=== PATIENT | female | born 1970 | race Two or more races ===

== ENCOUNTER 2025-02-25 14:25 | Inpatient (IN) | payer MEDICAID, SELFPAY ==
[2025-02-25 14:33] VITALS: BP 116/85; PULSE 87; RESP 16; TEMP 36.7; O2SAT 94; BMI 64.2
--- NOTE | 2025-02-25 14:43 | XR_ITS ---
Examination: CT abdomen and pelvis without contrast. Coronal 3-D reconstructions. Sagittal 2-D reconstructions. Date and time of exam: February 25, 2025, 1921 hours INDICATIONS: Generalized abdominal pain and nausea beginning 2 days ago CTDI: vol (mGy): 24.1 DLP: (mGycm): 1583 Technique: Axial images of the abdomen have been obtained, 3 mm slice thickness Intravenous contrast material has not been administered. Low dose protocols were performed. One or more of the following dose reduction techniques were used; automated exposure control, adjustment of the mA and/or KV according to patient size, use of iterative reconstruction technique. Findings: No focal liver or splenic lesions, liver irregular in contour Absent gallbladder Mild nodular thickening adrenal glands Diffuse colonic diverticulosis,, suspicious for acute diverticulitis in the sigmoid colon multiple fluid distended small bowel loops in the left abdomen The appendix is not enlarged Mild free fluid in the abdomen and pelvis Small bowel loops also show wall thickening and inflammatory change Anteverted uterus Uterine fundal mass 19 mm Moderate osteopenia IMPRESSION: Primary appendicitis disease versus cirrhosis Abnormal small bowel loops with wall thickening and inflammatory change Colonic diverticulosis, suspicious for acute diverticulitis sigmoid colon Normal-appearing appendix Recommend repeating the study with intravenous contrast to best assess the small bowel, rule out ischemic small bowel and Riolan acute diverticulitis
--- NOTE | 2025-02-25 14:43 | PD.EDRME ---
Rapid Medical Screening Exam E Arrival date/time: 02/25/25 14:25 54-year-old female with a history of morbidly obesity, hyperlipidemia, hypertension, type 2 diabetes presents to the emergency room with a chief complaint of 10 out of 10 epigastric abdominal pain. Patient has a history of a cholecystectomy. I have greeted and performed a focused initial assessment of this patient. A comprehensive ED assessment and evaluation of the patient, analysis of all test results, and completion of the medical decision making process will be conducted by additional ED providers. Chief Complaint: Abdominal Pain Time Seen by Provider: 02/25/25 14:30 Vital signs: Vital Signs Temperature 98.0 F 02/25/25 14:33 Pulse Rate 87 02/25/25 14:33 Respiratory Rate 16 02/25/25 14:33 Blood Pressure 116/85 H 02/25/25 14:33 Pulse Oximetry (%) 94 L 02/25/25 14:33 Oxygen Delivery Method Room Air 02/25/25 14:33 Vital signs reviewed by provider: No Exam: Tenderness to the epigastric area of the patient's abdomen Clear bilateral lung sounds Clinical Impression: Diverticulitis/appendicitis/gastroenteritis/UTI
[2025-02-25 16:03] LABS: Basophils # (Auto) 0.1 Thou/mm3 (0.0-0.2); Basophils % (Auto) 0 % (0-2.5); Eosinophils # (Auto) 0.2 Thou/mm3 (0.0-0.5); Eosinophils % (Auto) 1 % (0-10); Hematocrit 44.4 % (36.0-46.0); Hemoglobin 14.6 g/dL (12.0-16.0); Immature Granulocytes Auto 0.05 Thou/mm3 (0.00-0.00); Lymphocytes # (Auto) 1.4 Thou/mm3 (1.0-4.8); Lymphocytes % (Auto) 9 % (10-50); Mean Corpuscular HGB Conc 32.9 g/dl (31.0-37.0); Mean Corpuscular Hemoglobin 32.8 pg (25.0-35.0); Mean Corpuscular Volume 100 fL (80-100); Monocytes # (Auto) 0.4 Thou/mm3 (0.0-0.8); Monocytes % (Auto) 3 % (0-12); Neutrophils # (Auto) 13.1 Thou/mm3 (1.8-7.7); Neutrophils % (Auto) 86 % (37-80); Nucleated Red Blood Cell # 0.00 Thou/mm3 (0.00-0.00); Nucleated Red Blood Cell % 0 /100 WBC (0); Platelet Count 225 Thou/mm3 (140-440); RDW Standard Deviation 51.8 fL (36.4-46.3); Red Blood Count 4.45 Miln/mm3 (4.00-5.20); White Blood Count 15.2 Thou/mm3 (3.6-11.0)
[2025-02-25 16:30] LABS: Alanine Aminotransferase 9 U/L (10-49); Albumin, Serum 4.5 gm/dL (3.5-5.0); Albumin/Globulin Ratio 1.7 (1.2-2.2); Alkaline Phosphatase 65 U/L (46-116); Anion Gap 12 (7-16); Aspartate Amino Transferase 21 U/L (0-34); BUN/Creatinine Ratio 10 Ratio (12-20); Bilirubin,Total 1.0 mg/dL (0.3-1.2); Blood Urea Nitrogen 12 mg/dL (9-23); Calcium 9.4 mg/dL (8.3-10.6); Calcium (Corrected) 9.4 mg/dL (8.5-10.1); Carbon Dioxide 32.4 mMol/L (20.0-31.0); Chloride 99 mMol/L (98-107); Creatinine (Component) 1.2 mg/dL (0.6-1.3); Estimated Creatinine Clearance 77.3 mL/min (>60); Globulin 2.6 gm/dL (2.3-3.5); Glucose 155 mg/dL (74-106); Lipase 35 U/L (12-53); Osmolality,Calculated 287 (275-295); Potassium 3.5 mMol/L (3.4-5.1); Sodium 143 mMol/L (136-145); Total Protein 7.1 gm/dL (5.7-8.2); eGFR 54 See Note
[2025-02-25 20:11] VITALS: BP 147/104; PULSE 82; RESP 16; TEMP 37; O2SAT 93
[2025-02-25 20:26] LABS: Collection Type, Urine Clean Catch
[2025-02-25 20:43] LABS: HCG Qualitative,Urine Negative
[2025-02-25 21:28] LABS: Bilirubin,Urine 1+ (Negative); Blood,Urine 2+ (Negative); Color,Urine Drk-Orange (Lt Yel-Yel); Glucose, Urine Trace (Negative); Hyaline Casts,Urine 5 /hpf (0-1); Ketones,Urine Trace (Negative); Leukocyte Esterase,Urine Positive (Negative); Nitrite,Urine Negative (Negative); PH,Urine 6.0 (5.0-7.0); Protein,Urine 3+ (Neg - Trace); RBC,Urine 27 /hpf (0-3); Specific Gravity,Urine 1.034 (1.001-1.035); Squamous Epithelial Cell,Urine 55 /hpf (0-5); Urobilinogen,Urine 12 mg/dL (0.0-1.0); WBC,Urine 158 /hpf (0-5)
[2025-02-25 21:30] LABS: Clarity,Urine Turbid (Clear/Hazy)
--- NOTE | 2025-02-25 22:32 | PD.EDABDPN ---
ED Abdominal Pain RME/HPI General Chief Complaint: Abdominal Pain Stated complaint: SEVERE ABD PAIN; L) ARM PAIN TO CHEST X 1 DAY Time seen by provider: 02/25/25 14:30 Arrival date/time: 02/25/25 14:25 RME / HPI RME / HPI narrative: 02/25/25 14:25 54-year-old female with a history of morbidly obesity, hyperlipidemia, hypertension, type 2 diabetes presents to the emergency room with a chief complaint of 10 out of 10 epigastric abdominal pain. Patient has a history of a cholecystectomy. I have greeted and performed a focused initial assessment of this patient. A comprehensive ED assessment and evaluation of the patient, analysis of all test results, and completion of the medical decision making process will be conducted by additional ED providers. DR. VELASCO MAIN ED EVALUATION: Patient with Hx of non-insulin dependent diabetes predominantly obese presenting with LLQ abdominal pain approximately 3 days duration. Reports 1 bout of emesis. Additionally, notes diarrhea earlier today. Theres been no definite fevers or chills. PMH: Myocardial Infarction, Hypertension, Obesity, Diabetes Mellitus Type 2, Hypothyroidism, Anemia PSH: Cholecystectomy, Tubal Ligation Allergies: None Social: Non-smoker, Non-drinker, No illicit drug abuse Exam: Tenderness to the epigastric area of the patient's abdomen Clear bilateral lung sounds Impression: Diverticulitis/appendicitis/gastroenteritis/UTI Related Data Home Medications ?Medication ?Instructions ?Recorded ?Confirmed folic acid 1 mg tablet 1 mg PO QDAY 04/06/21 04/06/21 losartan 25 mg tablet 25 mg PO QDAY 04/06/21 04/06/21 metformin 500 mg tablet 500 mg PO BID 04/06/21 04/06/21 Previous Rx's ?Medication ?Instructions ?Recorded amlodipine 10 mg tablet 10 mg PO QDAY #30 tabs 06/25/19 aspirin 81 mg tablet,delayed 81 mg PO QDAY #30 tabs 06/25/19 release (Aspir-Low) atorvastatin 40 mg tablet 40 mg PO QPM #30 tabs 06/25/19 carvedilol 3.125 mg tablet 3.125 mg PO BID #60 tabs 02/25/20 ferrous gluconate 324 mg (38 mg 324 mg PO QDAY #30 tabs 06/25/19 iron) tablet levothyroxine 175 mcg tablet 175 mcg PO ACBR #30 tabs 06/25/19 nitroglycerin 0.4 mg sublingual 0.4 mg buccal [id number] PRN chest 06/25/19 tablet pain #100 tabs acetaminophen 325 mg tablet (Mapap 650 mg (2 x 325 mg) PO Q6H PRN 04/28/20 (acetaminophen)) Fever >101.5 #20 tabs Allergies Allergy/AdvReac Type Severity Reaction Status Date / Time No Known Allergies Allergy Verified 02/25/25 14:29 Review of Systems Review of Systems Systems Reviewed: All systems reviewed, normal except as documented Past Medical History Past Medical History CARDIAC: Positive Myocardial Infarction and Hypertension GASTROINTESTINAL: Positive Obesity ENDOCRINE: Positive Diabetes Mellitus Type 2 and Hypothyroidism HEMATOLOGIC: Positive Anemia Surgical History SURGICAL: Positive Abdominal Surgery ED Exam Narrative Physical exam: GEN. APPEARANCE: The patient is alert awake oriented X-3 under no distress, lying down comfortably, does not look ill/toxic. Patient has good eye contact. Patient is cooperative. VITALS: All vitals were reviewed and the pulse ox is 93% on 3L/min via oxygen mask, which is low according to my interpretation HEENT: Normocephalic, atraumatic and nontender. Pupils are equal and reactive. Oral mucosa is moist. NECK: Supple, nontender, no meningismus, no JVD. There is no thyromegaly and no lymphadenopathy. CHEST: Nontender on palpation no deformity and no crepitus. CARDIOVASCULAR: Heart regular rhythm, no murmur or gallop rub or extra beats. LUNGS: Clear to auscultation bilaterally with symmetrical chest rise. No laboring tachypnea or wheezing. No intercostal subcostal retraction. No rales and no rhonchi. ABDOMEN: Soft, morbidly obese, TTP LLQ extending to left flank and LUQ, no guarding or rebound tenderness. There are no abnormal masses palpated. No pulsatile masses or bruits. Active and normal bowel sounds. EXTREMITIES: Normal inspection and palpation. No edema. No cyanosis. Patient is able to move all 4 extremities well SKIN: Warm and dry, no rashes noted. MUSCULOSKELETAL: No lumbar or midline bony tenderness. There is no CVA tenderness. No paraspinal muscle spasm or tenderness. NEURO: Cranial nerves II through XII grossly intact. There are no focal neurologic deficits noted. GCS is 15 PSYCHIATRIC: Patient is in normal mood and affect, cooperative. LYMPHATICS: No major lymphadenopathy noted. Course Quality Measures none Orders Category Date Time Status EKG (ED ONLY) *Do not use* NOW Care 02/25/25 22:52 Active IV [Insert IV] NOW Care 02/25/25 22:[address] abdomen pelvis wo con Stat Exams 02/25/25 14:43 Completed EKG (ED Only) Stat Exams 02/25/25 22:52 Ordered CBC Stat Lab 02/25/25 15:30 Completed CMP [Comprehensive Metabolic Panel] Stat Lab 02/25/25 15:30 Completed HCG Qualitative,Urine Stat Lab 02/25/25 19:57 Completed Lactic Acid [Lactate (Lactic Acid)] Stat Lab 02/25/25 22:31 Completed Lipase Stat Lab 02/25/25 15:30 Completed UA [Urinalysis] Stat Lab 02/25/25 19:57 Completed Urine Culture Stat Lab 02/25/25 19:57 Received Morphine* Inj Med 02/25/25 22:20 Discontinued 4 mg IVP X1 ONE Ondansetron Inj [Zofran Inj] Med 02/25/25 22:19 Discontinued 4 mg IVP X1 ONE Sodium Chloride 0.9% 500 ml [Ns] 500 ml Med 02/25/25 22:19 Discontinued IV 500 mls/hr cefTRIAXone/D5w 1gm IV premix [Rocephin/D5w 1gm IV Med 02/25/25 22:18 Discontinued premix] 1 gm in 50 ml IV X1 metroNIDAZOLE/NS 500 MG IVPB [Flagyl 500 mg IV] Med 02/25/25 22:19 Discontinued 500 mg in 100 ml IV X1 Vital Signs Vital signs: Vital Signs Temperature 98.0 F 02/25/25 14:33 Pulse Rate 87 02/25/25 14:33 Respiratory Rate 16 02/25/25 14:33 Blood Pressure 116/85 H 02/25/25 14:33 Pulse Oximetry (%) 94 L 02/25/25 14:33 Oxygen Delivery Method Room Air 02/25/25 14:33 Abdominal Pain MDM MDM Narrative MDM Narrative:: Scribe Attestation: ITaisha am scribing for and in the presence of Dr. Velasco. Provider Notation: Although this document has been carefully reviewed, there may still be some phonetic and other typographical errors. These errors are purely grammatical due to imperfections in the software program and should not be construed in any way to compromise the substance of the patient's medical care during this visit. Patient with Hx of non-insulin dependent diabetes predominantly obese presenting with LLQ abdominal pain approximately 3 days duration. Reports 1 bout of emesis. Please see PE findings. Laboratory markers, including CBC and serum chemistries, demonstrate elevated WBC of 15.2, Hemoglobin 14.6, left shift without bandemia. Serum chemistries demonstrate mild bs 155 otherwise essentially unremarkable. UA with evidence of pyuria and positive leukocyte esterase, although negative nitrite appears contaminated. test was negative. Patient was hydrated with saline low-dose narcotic analgesics/anti-emetics with mild to moderate relief and referred for CT which demonstrates acute diverticulitis, additionally small bowel loops with wall thickening and inflammatory changes. Recommendations include IV contrast to R/O ischemic small bowel. Likelihood is low given Lactic Acid of 1.3. Received IV dual-ABX, hospitalist consulted for admission with general surgery consultation. Patient data External records reviewed:: [facility] previous records (Reviewed prior ED records from 04/08/21. Patient was seen for Abscess of face.) Clinical information provided by:: patient Social determinants that could affect healthcare access:: none Patient has the following chronic illnesses:: Myocardial Infarction, Hypertension, Obesity, Diabetes Mellitus Type 2, Hypothyroidism, Anemia How is presenting disease/condition affected by chronic disease/condition?: exacerbated by Evaluation data The following diagnostics were reviewed and interpreted by me:: lab results and radiology exam(s) Lab and/or radiology exams considered but not ordered:: None Interpretation Summary: RADIOLOGY Abdomen/Pelvis CT: Findings: No focal liver or splenic lesions, liver irregular in contour Absent gallbladder Mild nodular thickening adrenal glands Diffuse colonic diverticulosis,, suspicious for acute diverticulitis in the sigmoid colon multiple fluid distended small bowel loops in the left abdomen The appendix is not enlarged Mild free fluid in the abdomen and pelvis Small bowel loops also show wall thickening and inflammatory change Anteverted uterus Uterine fundal mass 19 mm Moderate osteopenia IMPRESSION: Primary appendicitis disease versus cirrhosis Abnormal small bowel loops with wall thickening and inflammatory change Colonic diverticulosis, suspicious for acute diverticulitis sigmoid colon Normal-appearing appendix Recommend repeating the study with intravenous contrast to best assess the small bowel, rule out ischemic small bowel and Riolan acute diverticulitis Medications / Prescriptions Medications or Prescriptions considered but not ordered:: None Medication administrations:: Medication Administration History Discontinued Medications Ceftriaxone Sodium/Dextrose (Rocephin/D5w 1gm Iv Premix) 1 gm in 50 mls @ 100 mls/hr IV X1 ONE Stop: 02/25/25 22:47 Last Admin: 02/25/25 22:45 Dose: 100 mls/hr Documented By: MARILEE Metronidazole (Flagyl 500 Mg Iv) 500 mg in 100 mls @ 100 mls/hr IV X1 ONE Stop: 02/25/25 23:18 Last Admin: 02/25/25 23:08 Dose: 100 mls/hr Documented By: MARILEE Sodium Chloride (Ns) 500 mls @ 500 mls/hr IV .Q1H ONE Stop: 02/25/25 23:18 Last Admin: 02/25/25 22:47 Dose: 500 mls/hr Documented By: MARILEE Morphine Sulfate (Morphine Sulf Inj 4 Mg/Ml Vial) 4 mg IVP X1 ONE Stop: 02/25/25 22:21 Last Admin: 02/25/25 22:45 Dose: 4 mg Documented By: MARILEE Ondansetron HCl (Ondansetron Inj 2 Mg/Ml Inj 2 Ml) 4 mg IVP X1 ONE; Protocol Stop: 02/25/25 22:20 Last Admin: 02/25/25 22:46 Dose: 4 mg Documented By: MARILEE See above if any Consultations Consultation(s) initiated? (list below): Yes Consultation #1 (Physician, Specialty, Details): Discussed with resident physician Dr. Mesa for admission. Reviewed the patient?s HPI, PMHx, lab and/or radiology results. Discussed treatment plan. Will consult an admission to the hospitalist. Time: 23:23 Diagnosis Differential diagnosis abdominal pain: abdominal pain, calculus of kidney, constipation, diverticulitis, gastroenteritis and small bowel obstruction Most likely diagnosis given after review of the tests above:: Diverticulitis Admission Indicated Admission indicated?: indicated Explain why admission is indicated or not indicated:: Diverticulitis Admission Request Was there a request for admission?: Yes Admission Attestation Admission request attestation: Discussed case with [] from Hospitalist service regarding admission. Discussed patients ED course, exam findings, labs, and radiology results. The Hospitalist [agrees,declines] to accept the patient for admission. Disposition Plan Disposition Plan: Admit Discharge Plan Plan Patient Disposition: Admit Acute Care w/in Hospital Prescriptions/Referrals Prescriptions/Med Rec: No Action amlodipine 10 mg tablet 10 mg PO QDAY Qty: 30 0RF aspirin [Aspir-Low] 81 mg Tablet,Delayed Release (Dr/Ec) 81 mg PO QDAY Qty: 30 0RF atorvastatin 40 mg tablet 40 mg PO QPM Qty: 30 0RF levothyroxine 175 mcg Tablet 175 mcg PO ACBR Qty: 30 0RF carvedilol 3.125 mg Tablet 3.125 mg PO BID Qty: 60 0RF ferrous gluconate 324 mg (38 mg iron) Tablet 324 mg PO QDAY Qty: 30 0RF nitroglycerin 0.4 mg tablet, sublingual 0.4 mg BUCCAL [id number] PRN (Reason: chest pain) Qty: 100 0RF Patient Comments: last dose couple of months ago Rx Instructions: Please seek immediate medical attention if no alleviation of chest pain. acetaminophen [Mapap (acetaminophen)] 325 mg Tablet 650 mg PO Q6H PRN (Reason: Fever >101.5) Qty: 20 0RF metformin 500 mg Tablet 500 mg PO BID losartan 25 mg Tablet 25 mg PO QDAY folic acid 1 mg Tablet 1 mg PO QDAY Referrals: No Primary/Family,Physician [Primary Care Provider] - In 1 week Problem List Clinical Impression: Diverticulitis Patient/Caregiver Discharge Instructions Print Language: Taiwanese Stand Alone Forms: [facility] Award Info., Patient Portal Info Letter
[2025-02-25 22:41] LABS: Lactate (Lactic Acid) 1.3 mMol/L (0.4-2.0)
[2025-02-25 22:42] VITALS: BP 164/101; PULSE 89; RESP 20; TEMP 36.8; O2SAT 95
[2025-02-25] MEDS: MORPHINE SULF INJ 4 MG/ML VIAL IVP (22:45)
[2025-02-25] MEDS: cefTRIAXone/D5w 1gm IV premix 1 GM/50 ML BAG IV (22:45)
[2025-02-25] MEDS: ONDANSETRON INJ 2 MG/ML INJ 2 ML 4 MG IVP (22:46)
[2025-02-25] MEDS: SODIUM CHLORIDE 0.9% 500 ML 500 ML IV (22:47)
[2025-02-25] MEDS: metroNIDAZOLE/NS 500 MG IVPB 500 MG/100 ML BAG 100 MG IV (23:08)
[2025-02-26] VITALS (19 sets, daily range): BP systolic 119–188; BP diastolic 86–105; PULSE 58–88; RESP 10–25; TEMP 35.8–36.6; O2SAT 93–100
--- NOTE | 2025-02-26 00:24 | XR_ITS ---
EXAMINATION: AP chest single view TECHNIQUE: AP portable upright chest single view Date and time: February 26, 2025, 0035 hours INDICATIONS: Shortness of breath today. FINDINGS: Bilateral perihilar bibasilar pneumonia Moderate elevation left hemidiaphragm No significant cardiac enlargement Mild to moderate vascular congestion IMPRESSION: Significant bilateral pneumonia
--- NOTE | 2025-02-26 00:35 | XR_ITS ---
Examination: CTA abdomen, with intravenous contrast. CTA pelvis, with intravenous contrast. 2-D sagittal and coronal reconstructions. 3-D reconstructions. Date and time of exam: February 26, 2025, 0208 hours INDICATIONS: Severe abdominal pain today, clinical diagnosis ischemic bowel CTDI vol (mgy) 15.5 DLP (MGycm) 933 Technique: Multiple CTA images, 2.0 mm slice thickness, obtained abdomen, pelvis, with the high-resolution 64 slice scanner. 100 cc Isovue-370 is administered intravenously. Sagittal and coronal 2-D reconstructions are obtained. 3-D reconstructions, angiographic images are obtained. 3-D postprocessing, including vascular maximum intensity projections. Low dose protocols were performed. One or more of the following dose reduction techniques were used; automated exposure control, adjustment of the mA and/or KV according to patient size, use of iterative reconstruction technique. Findings: Bibasilar pneumonia Moderate enlargement cardiac contour. Pericardial effusion measuring 30 mm at the level of the left ventricle Liver is irregular in contour Spleen is not enlarged Absent gallbladder with no extrahepatic biliary tract dilatation No pancreatic mass Nodular thickening right adrenal gland No renal or ureteral calculi, no hydronephrosis No pericecal inflammatory change There is inflammatory change involving the sigmoid colon which may relate to diverticulitis Small bowel is not dilated on this study, no findings diagnostic for ischemic bowel Anteverted uterus with uterine fundal area fibroid degeneration 25 mm Contracted urinary bladder Severe osteopenia IMPRESSION: Study quality is limited secondary to patient's size Pericardial effusion measuring 30 mm at the level of the left ventricle Bibasilar pneumonia Primary bowel cellular disease versus cirrhosis No extrahepatic biliary tract dilatation Nodular thickening right adrenal gland, consider MRI abdomen pre and postcontrast follow-up No CT findings of appendicitis No findings diagnostic for bowel ischemia Colitis involving the sigmoid colon which may be secondary to diverticulitis, no pelvic abscess
[2025-02-26] MEDS: hydrALAZINE INJ 20 MG/ML VIAL 10 MG IVP (00:48)
[2025-02-26 01:24] LABS: Procalcitonin 1.10 ng/ml (0.0-0.49)
[2025-02-26 01:25] LABS: Lactate (Lactic Acid) 0.7 mMol/L (0.4-2.0)
[2025-02-26] MEDS: MORPHINE SULF INJ 4 MG/ML VIAL 2 MG IVP (01:53)
[2025-02-26] MEDS: CIPROFLOXACIN/D5w 400 MG IVPB 400 MG/200 ML BAG 200 MG IV ×2 (01:54→06:44)
[2025-02-26] MEDS: ONDANSETRON INJ 2 MG/ML INJ 2 ML 4 MG IVP (01:54)
[2025-02-26 03:00] LABS: Base Excess 0 (-3-3); HCO3 34 mEq/L (20-26); Inspired Oxygen, FIO2 21 %; O2 Saturation 95 % (91-98); PCO2 116 mmHg (32.0-48.0); PO2 96 mmHg (83-108)
[2025-02-26 03:02] LABS: Allen Test Performed/OK; Puncture Site Left Radial; pH, Arterial 7.07 (7.35-7.45)
--- NOTE | 2025-02-26 03:12 | PRELIM_ITS ---
CT angiogram of abdomen and pelvis with intravenous contrast (axial sections with sagittal and coronal reformats) February 26, 2025 0208 hours Clinical History: RLQ pain c/f ischemic bowel Comparison: None available at the time of this report. Findings: The abdominal aorta demonstrates mild atheromatous calcification without evidence of dissection or aneurysm. The celiac, superior mesenteric, inferior mesenteric and bilateral renal arteries are patent to the extent visualized. The common iliac, external iliac and internal iliac arteries are patent bilaterally. The spleen, pancreas, and kidneys are unremarkable. Right adrenal nodule measuring 2.2 cm. Unremarkable of the left adrenal. S/p cholecystectomy. No biliary duct dilation. Mild irregular liver margins. No evidence of bowel obstruction. No evidence of appendicitis. The urinary bladder is unremarkable. There is no free fluid, free air or abscess. Degenerative changes of the imaged portions of the spine. Chronic multilevel disc disease. No acute fractures. Hypodense fat-containing area within the uterus. Probable uterine fibroid. Bilateral lower lobes consolidations. Fat stranding peripheral to date sigmoid colon. Diverticulosis of the colon. Thickening of the cecum and ascending colon. Partially imaged moderate complex pericardial effusion. Impression: 1. No evidence of abdominal aortic aneurysm or mesenteric vascular occlusion. 2. Bilateral lower lobes consolidation suspicious for pneumonia. 3. Probable cirrhosis. 4. Hypodense fat-containing area within the uterus. Consider further evaluation with ultrasound. 5. Probable uterine fibroid. Consider further evaluation with ultrasound. 6. Inflammatory changes of the colon of uncertain etiology. Please, correlate clinically. 7. Partially imaged moderate complex pericardial effusion. This is suspicious for pericarditis. 8. Right adrenal nodule, further evaluation for characterization is recommended. Report Electronically Signed By: Lexx Blank 02/26/2025 3:12:34 AM [EST]
[2025-02-26] MEDS: SODIUM CHLORIDE 0.9% 1000 ML 1,000 ML 999 ML IV (03:31)
[2025-02-26] MEDS: SODIUM BICARB INJ 8.4% 1 mEq/ML 50 ML VIAL 100 MEQ IV (03:32)
[2025-02-26 04:45] LABS: Base Excess 4 (-3-3); HCO3 36 mEq/L (20-26); Inspired Oxygen, FIO2 55 %; O2 Saturation 99 % (91-98); PCO2 98 mmHg (32.0-48.0); PO2 140 mmHg (83-108)
[2025-02-26 04:52] LABS: Allen Test Performed/OK; Puncture Site Left Radial; pH, Arterial 7.17 (7.35-7.45)
--- NOTE | 2025-02-26 05:27 | PD.RESHP ---
Documentation for date of: 02/26/25 [facility] History of Present Illness History of present illness: Ms. Mcdowell is a 54-year-old female with past medical history of morbid obesity, hyperlipidemia, hypertension, T2DM, cholecystectomy, FL, hypothyroidism, MRSA + periorbital cellulitis, anemia who presented to the ED on 02/25 with epigastric and left upper and lower quadrant abdominal pain x 3 days. Patient reports 1 episode of diarrhea but no nausea or vomiting. Associated with decreased appetite. Last p.o. intake yesterday, was tolerated. Denies melena, hematochezia, hematemesis. She also has shortness of breath and was found to be desaturating to the 80s on room air. Denies chest pain/pressure, headache, acute changes in vision. Patient is a poor historian and is minimally interactive during the exam, though she is able to answer all questions and follow commands when asked directly, AO x 3. Patient's sister is at bedside, provides supplemental history. Patient's sister notes that the patient is less interactive and falls asleep during conversation which is not her baseline. Patient is noncompliant with medications and does not often see a medical provider. When asked why she does not take her medications she states that she does not know. She lives at home in a trailer with her and daughter who help take care of her, but the patient has significant difficulty with mobility. She does not check her blood pressure at home. ED course: Afebrile, 116/85 --> 164/101 --> 188/105 (HR 88). SpO2 94% RA --> 98% on 15L OxyMask. RR 16 --> 22. Labs significant for WBC 15.2, CO2 32, BUN 12, CR 1.2 (at baseline), eGFR 54. Lactic acid 1.3. Lipase unremarkable. UA showed 3+ protein, 2+ blood, + LE, 1+ bilirubin, 27 RBC, 158 WBC, 55 squamous epithelial cells, 5 hyaline casts. Pending urine culture. CT abdomen pelvis without contrast showed abnormal small bowel loops with wall thickening and inflammatory changes, colonic diverticulosis, C/F acute diverticulitis sigmoid colon, hepatocellular disease, irregular liver contour, uterine fundal mass 19 mm, mild nodular thickening of the adrenal glands. Given ceftriaxone 1 g IV, morphine 4 mg IV, Zofran 4 mg IV, 500 mL NS, metronidazole 500 mg IV. PMHX: Morbid obesity, hyperlipidemia, hypertension, T2DM, cholecystectomy, FL, hypothyroidism, MRSA positive periorbital cellulitis, anemia Allergies: NKDA Meds: Patient reports that she has not been taking any medications for at least the past 2 weeks. The following is a list of medications that were listed in home meds: Folic acid 1 mg daily Losartan 25 mg daily Metformin 500 mg twice daily Amlodipine 10 mg daily Aspirin 81 mg daily Atorvastatin 40 mg daily Levothyroxine 175 mcg daily Carvedilol 3.125 mg twice daily Nitroglycerin 0.4 mg buccal as needed Ferrous gluconate 324 mg p.o. daily SgHx: Cholecystectomy, tubal ligation SHx: Denies smoking, alcohol, recreational drug use. Lives in a trailer with her and daughter. Sedentary lifestyle. Has difficulty with mobility. FHx: Mother?CHF?, Sister?hypertension, diabetes Review of Systems Review of Systems Narrative Review of Systems: 14 point ROS negative other than HPI Exam Vital Signs Temp Pulse Resp BP Pulse Ox O2 Del Method O2 Flow Rate 97.5 F 69 24 H 134/93 H 95 BiPAP 50 02/26/25 03:09 02/26/25 04:43 02/26/25 04:43 02/26/25 04:43 02/26/25 04:43 02/26/25 04:43 02/26/25 03:47 Narrative Exam General: No acute distress, morbidly obese, minimally interactive with exam Eye: PERRL, EOMI, right eyelid closed (chronic) HENT: Normocephalic, atraumatic, normal hearing, moist oral mucosa, hoarse voice (chronic) Neck: Supple, non-tender, no JVD, no lymphadenopathy Lungs: Clear to auscultation bilaterally but difficult to hear breath sounds, non-labored respirations, symmetric chest rise, no use of accessory muscles, spO2 99% on 15L Oxymask Heart: Normal S1 and S2, no S3 or S4 appreciated. Normal rate and regular rhythm, no murmurs, rubs gallops. 2+ b/l edema Abdomen: Soft, nondistended. TTP of epigastric, LUQ and LLQ Musculoskeletal: Normal range of motion and strength, no tenderness or swelling Skin: Skin is warm, dry, no rashes or lesions. Venous stasis dermatitis b/l LE Neurologic: Alert, awake and oriented x3. CN II-XII grossly intact. Able to follow commands but somnolent. No focal neuro deficits. No signs of meningeal irritation noted. Psychiatric: Cooperative, appropriate mood and affect Results: Labs 02/28/25 05:24 02/28/25 05:24 Labs: Short CBC 02/25/25 Range/Units 15:30 WBC 15.2 H (3.6-11.0) Thou/mm3 Hgb 14.6 (12.0-16.0) g/dL Hct 44.4 (36.0-46.0) % Plt Count 225 (140-440) Thou/mm3 BMP 02/25/25 15:30 Sodium 143 Potassium 3.5 Chloride 99 Carbon Dioxide 32.4 H BUN 12 Creatinine 1.2 Glucose 155 H Calcium 9.4 Liver Function 02/25/25 Range/Units 15:30 Total Bilirubin 1.0 (0.3-1.2) mg/dL AST 21 (0-34) U/L ALT 9 L (10-49) U/L Alkaline Phosphatase 65 (46-116) U/L Albumin 4.5 (3.5-5.0) gm/dL Urine 02/25/25 Range/Units 19:57 Urine Color Drk-Crane A (Lt Yel-Yel) Urine Clarity Turbid A (Clear/Hazy) Urine pH 6.0 (5.0-7.0) Ur Specific Beatrice 1.034 (1.001-1.035) Urine Protein 3+ A (Neg - Trace) Urine Glucose (UA) Trace (Negative) ABG Interpretation ABG results: 02/26/25 02/26/25 02:53 04:39 ABG pH 7.07 L* 7.17 L* D ABG pCO2 116 H* 98 H* D ABG pO2 96 140 H D ABG HCO3 34 H 36 H ABG O2 Saturation 95 99 H ABG Base Excess 0 4 H Quality Measures Quality Measures VTE prophylaxis Medications Home Medications and Allergies Home Medications ?Medication ?Instructions ?Recorded ?Confirmed ?Type metformin 500 mg tablet 500 mg PO BID 04/06/21 02/26/25 History amlodipine 10 mg tablet 10 mg PO DAILY 02/26/25 02/26/25 History cholecalciferol (vitamin D3) 125 5,000 unit PO .weekly 02/26/25 02/26/25 History mcg (5,000 unit) tablet ezetimibe 10 mg tablet 10 mg PO QDAY 02/26/25 02/26/25 History ferrous sulfate 325 mg (65 mg 325 mg PO .3 times per week 02/26/25 02/26/25 History iron) tablet furosemide 20 mg tablet 20 mg PO QDAY 02/26/25 02/26/25 History losartan 50 mg tablet 50 mg PO QDAY 02/26/25 02/26/25 History rosuvastatin 40 mg tablet 40 mg PO DAILY 02/26/25 02/26/25 History Allergies Allergy/AdvReac Type Severity Reaction Status Date / Time No Known Allergies Allergy Verified 02/25/25 14:29 Visit Medications Acetaminophen (Acetaminophen 325 Mg Tablet) 650 mg PO Q6H PRN PRN Reason: Fever >100.3 Stop: 03/28/25 01:24 Acetaminophen (Acetaminophen 325 Mg Tablet) 650 mg PO Q6H PRN PRN Reason: PAIN SCALE 1-3 (mild Stop: 03/28/25 01:24 Heparin Sodium (Porcine) (Heparin Sod Inj 5000 Unit/Ml Vial) 5,000 unit SC Q8HR ÁNGEL Stop: 03/12/25 05:59 Ciprofloxacin/Dextrose (Cipro Ivpb) 400 mg in 200 mls @ 200 mls/hr IV Q12HR ÁNGEL Stop: 03/05/25 01:29 Metronidazole (Flagyl 500 Mg Iv) 500 mg in 100 mls @ 200 mls/hr IV Q8HR ÁNGEL Stop: 03/05/25 01:29 Morphine Sulfate (Morphine Sulf Inj 4 Mg/Ml Vial) 2 mg IVP Q6HR PRN PRN Reason: pain 4-7 Stop: 03/03/25 01:29 Last Admin: 02/26/25 01:53 Dose: 2 mg Ondansetron HCl (Ondansetron Inj 2 Mg/Ml Inj 2 Ml) 4 mg IVP Q6H PRN; Protocol PRN Reason: NAUSEA OR VOMITING Stop: 03/28/25 01:24 Last Admin: 02/26/25 01:54 Dose: 4 mg Discontinued Medications Hydralazine HCl (Hydralazine Inj 20 Mg/Ml Vial) 10 mg IVP X1 ONE Stop: 02/26/25 00:39 Last Admin: 02/26/25 00:48 Dose: 10 mg Ceftriaxone Sodium/Dextrose (Rocephin/D5w 1gm Iv Premix) 1 gm in 50 mls @ 100 mls/hr IV X1 ONE Stop: 02/25/25 22:47 Last Infusion: 02/25/25 23:15 Dose: Infused Metronidazole (Flagyl 500 Mg Iv) 500 mg in 100 mls @ 100 mls/hr IV X1 ONE Stop: 02/25/25 23:18 Last Infusion: 02/26/25 00:10 Dose: Infused Sodium Chloride (Ns) 500 mls @ 500 mls/hr IV .Q1H ONE Stop: 02/25/25 23:18 Last Infusion: 02/25/25 23:51 Dose: Infused Ciprofloxacin/Dextrose (Cipro Ivpb) 400 mg in 200 mls @ 200 mls/hr IV X1 ONE Stop: 02/26/25 02:44 Last Infusion: 02/26/25 02:54 Dose: Infused Sodium Chloride (Ns) 1,000 mls @ 999 mls/hr IV .Q1H1M ONE Stop: 02/26/25 04:03 Last Infusion: 02/26/25 04:36 Dose: Infused Morphine Sulfate (Morphine Sulf Inj 4 Mg/Ml Vial) 4 mg IVP X1 ONE Stop: 02/25/25 22:21 Last Admin: 02/25/25 22:45 Dose: 4 mg Ondansetron HCl (Ondansetron Inj 2 Mg/Ml Inj 2 Ml) 4 mg IVP X1 ONE; Protocol Stop: 02/25/25 22:20 Last Admin: 02/25/25 22:46 Dose: 4 mg Sodium Bicarbonate (Sodium Bicarb Inj 8.4% 1 Meq/Ml 50 Ml Vial) 100 meq IV X1 ONE Stop: 02/26/25 03:04 Last Admin: 02/26/25 03:32 Dose: 100 meq Assessment & Plan Plan Ms. Mcdowell is a 54-year-old female with past medical history of morbid obesity, hyperlipidemia, hypertension, T2DM, cholecystectomy, FL, hypothyroidism, MRSA + periorbital cellulitis, anemia who presented to the ED on 02/25 with epigastric and left upper and lower quadrant abdominal pain x 3 days. Admitted for acute hypercapneic respiratory failure, diverticulitis. #Acute encephalopathy #Acute hypoxic hypercapnic respiratory failure #Primary respiratory acidosis with acute metabolic compensation #OHS Patient was minimally responsive upon exam, AO x 3, able to answer questions and follow commands when asked directly. Upon subsequent examination patient only awoke to noxious stimuli Desaturation to low 80s on room air, 98% on 15 L oxy mask. ABG 7.07, CO2 116, O2 96. HCO3 on CMP 32. AG 14. Procal 1.10. Given NaHCO3 100 mgEQ IV. Started on BiPAP --> ABG pH 7.17/98/140 Plan: - BiPAP with repeat ABG as needed - Pending CXR - NPO given encephalopathy #Pericardial effusion #c/f pericarditis Pt denies chest pain, afebrile, hypertensive Seen on CTA a/p. No aortic dissection seen on CTA prelim read DDX: post-FL, hypothyroidism, viral, malignancy, inflammatory/autoimmune Plan: - Pending EKG, CXR - Pending TTE (previous echo in 2019 showed LVEF 50-55%, LVH) #Hypertension, chronic #Hypertensive urgency - resolved 188/105 (HR 88) --> 134/93, HR 69 Plan: - Amlodipine 10 mg daily (listed as home med) - Losartan 25 mg daily (listed as home med) - Held carvedilol given HR (home med listed as 3.125 mg BID) #Epigastric, left upper and left lower quadrant pain #Diverticulosis #Sigmoid diverticulitis Afebrile, Lactic acid 1.3 --> 0.7, lipase WNL CT a/p without contrast: abnormal small bowel loops with wall thickening and inflammatory changes, colonic diverticulosis, C/F acute diverticulitis sigmoid colon, hepatocellular disease, irregular liver contour, uterine fundal mass 19 mm, mild nodular thickening of the adrenal glands. CTA a/p (prelim read): No abdominal aortic aneurysm or mesenteric vascular occlusion, B/L lower lobe consolidation C/F pneumonia, cirrhosis, hyperdense fat-containing area within the uterus, uterine fibroid, inflammatory changes of colon, moderate complex pericardial effusion, C/F pericarditis, right adrenal nodule 2.2 cm. No evidence of bowel obstruction. Urinary bladder unremarkable. No free fluid, free air, or abscess. Diverticulosis of colon. Thickening of the cecum and ascending colon. Given ceftriaxone 1 g IV, morphine 4 mg IV, Zofran 4 mg IV, 500 mL NS, metronidazole 500 mg IV. Plan: - Pending CTA A/P final read - Ciprofloxacin 400 mg IV BID and metronidazole 500 mg IV q8h - Pending blood cx - Consult general surgery, appreciate recs #Pyuria #Hematuria #Bilirubinuria #Hyaline casts Denies urinary sx BUN 12, Cr 1.2., eGFR 54 on admit UA showed 3+ protein, 2+ blood, +LE, 1+ bilirubin, 27 RBC, 158 WBC, 55 squamous epithelial cells, 5 hyaline casts Plan: - Pending urine cx - Ciprofloxacin 400 mg IV BID #T2DM Plan: - SSI - Pending A1C #Hypothyroidism #Morbid obesity Plan: - Medication non-compliance- urged to start taking medications as scheduled. - Counseled regarding weight loss, diet and exercise - Levothyroxine 175 mg daily (listed as home med) - Pending TSH, T4 #Hyperlipidemia #Hx of FL? #Hx stroke? Plan: - Pending lipid panel - Aspirin 81 mg daily, atorvastatin 40 mg daily (listed as home med) Checklist Dispo: Admit to tele for w/u acute hypercapneic respiratory failure, diverticulitis Diet: NPO Bowel Reg: n/a VTE ppx: heparin subQ GI ppx: n/a Pain mgmt: Tylenol, morphine 2 mg IV q6h PRN Code status: full Plan discussed with Dr. Mesa and Dr. Corin Guo MD PGY1 Attending Provider Attestation/Addendum After examination of the patient and review of the clinical data I feel that this patient needs admission to the hospital for further treatment/evaluation. TOTAL CC TIME: 65 MIN TOTAL TIME: 65 Minutes of direct medical management and planning of care. I Humberto Coombs MD, attest that I was physically present for gan portions of evaluation, and examined patient, labs and imagings and plan of care were discussed with IM residents team, and I agree with the findings and plans documented above.
[2025-02-26] MEDS: MIDAZOLAM INJ 1 MG/ML VIAL 2 ML 2 MG IVP (05:39)
[2025-02-26] MEDS: HEPARIN SOD INJ 5000 UNIT/ML VIAL SC ×3 (05:39→22:00)
--- NOTE | 2025-02-26 05:41 | ECHO_ITS ---
Patient Info Name: Lorraine Mcdowell Age: 54 years : 1970 Gender: Female Ht: 155 cm Wt: 154 kg BSA: 2.69 m2 BP: 134 / 93 mmHg HR: 65 bpm Heart Rhythm: Sinus Rhythm Exam Date: 02/26/2025 10:15 AM Admit Date: 02/26/2025 Site: [facility] Patient Status: I Technical Quality: Poor Exam Type: CA echo doppler complete Reason for Poor Study: body habitus Carpet Finishing Supervisor: Cathleen Nava Ordering Physician: Snehal Guo Referring Physician: Snehal Guo Study Info Indications c/f CHF - Primary Location: [facility] Left Ventricular Outflow Tract Name Value Normal LVOT 2D LVOT Diameter 1.9 cm LVOT Doppler LVOT Peak Velocity 91 cm/s LVOT Mean Gradient 1 mmHg LVOT VTI 21 cm LVOT VTI/AV VTI Ratio 0.8 LVOT Stroke Volume 59 ml Pulmonic Valve Name Value Normal PV Doppler PV Peak Velocity 94 cm/s Mitral Valve Name Value Normal MV Doppler MV Decel [place] 287 cm/s2 MV PHT 71 ms MV Area (PHT) 3.1 cm2 4.0-5.0 MV Diastolic Function MV E Peak Velocity 71 cm/s MV A Peak Velocity 71 cm/s MV E/A 1.0 MV Annular TDI MV Septal e' Velocity 4.2 cm/s MV E/e' (Septal) 16.7 MV Lateral e' Velocity 4.8 cm/s MV E/e' (Lateral) 14.8 MV e' Average 4.52 cm/s MV E/e' (Average) 15.7 Tricuspid Valve Name Value Normal TV Regurgitation Doppler TR Peak Velocity 193 cm/s Estimated PAP/RSVP RA Pressure 3 mmHg <=5 PA Systolic Pressure 18 mmHg <36 RV Systolic Pressure 18 mmHg <36 Aorta Name Value Normal Ascending Aorta Ao Root Diameter (2D) 3.8 cm Ao Root Diam Index (2D) 1.4 cm/m2 Aortic Valve Name Value Normal AV Doppler AV Peak Velocity 92 cm/s AV Mean Gradient 2 mmHg AV VTI 26 cm AV Area (Cont Eq VTI) 2.3 cm2 >=3.0 AV Area (Cont Eq Gerardo) 2.8 cm2 AV DI (Gerardo) 0.99 AV Regurgitation 2D LVOT Area 2.8 cm2 Ventricles Name Value Normal LV Dimensions 2D/MM IVS Diastolic Thickness (2D) 1.7 cm 0.6-0.9 LVID Diastole (2D) 4.0 cm 3.8-5.2 LVIW Diastolic Thickness (2D) 1.4 cm 0.6-0.9 LVID Systole (2D) 3.0 cm 2.2-3.5 LVOT Diameter 1.9 cm LV Mass (2D Cubed) 245.13 g 67.00-162.00 LV Mass Index (2D Cubed) 91 g/m2 43-95 Relative Wall Thickness (2D) 0.70 <=0.42 IVS/LVIW Diastolic Thickness (2D) 1.21 0.00-1.50 LV Fractional Shortening/Ejection Fraction 2D/MM LV Fractional Shortening (2D) 25 % 27-45 LV EF (2D Teichholz) 50 % LV Diastolic Volume (4C MOD) 114 ml LV EF (4C MOD) 76 % LV Diastolic Volume (2C MOD) 106 ml LV EF (2C MOD) 58 % LV Diastolic Volume (BP MOD) 98 ml 46-106 LV Diastolic Volume Index (BP MOD) 36 ml/m2 29-61 LV Systolic Volume (BP MOD) 37 ml 14-42 LV Systolic Volume Index (BP MOD) 14 ml/m2 8-24 LV EF (BP MOD) 62 % 54-74 LV Diastolic Length (4C) 7.4 cm LV Systolic Length (4C) 5.7 cm LV Stroke Volume (4C MOD) 87 ml Atria Name Value Normal LA Dimensions LA Volume (4C A-L) 32 ml LA Volume (BP A-L) 45 ml Left Ventricle Left ventricular chamber dimension is normal. Left ventricular systolic function is normal with an ejection fraction by Biplane Method of Discs of 62 %. There is moderate concentric hypertrophy noted in the left ventricle. Left ventricular segmental wall motion is normal. The left ventricular diastolic function is grade I diastolic dysfunction. Right Ventricle Right ventricular chamber dimension is normal. Right ventricular systolic function is normal. Left Atrium Left atrial chamber dimension is normal. Right Atrium Right atrial chamber dimension is normal. Aortic Valve There is no aortic valve sclerosis. There is no aortic valve stenosis with a peak velocity of 92 cm/s, mean gradient of 2 mmHg, and aortic valve area of 2.3 cm2. There is no aortic valve regurgitation. Aortic valve is not well visualized. Pulmonic Valve The pulmonic valve is normal. There is no pulmonic valve stenosis. There is no pulmonic regurgitation. Mitral Valve The mitral valve has normal leaflets. There is no mitral valve stenosis. There is no mitral valve regurgitation. Tricuspid Valve The tricuspid valve leaflets are normal. There is no significant tricuspid valve stenosis. There is trace tricuspid valve regurgitation. Pericardium/Pleural The pericardium appears normal. There is small to moderate circumferential pericardial effusion. No evidence of cardiac tamponade. There is fribrogenous exudate on LV and RV velez indicating chronic effusion. Echocardiographic evidence of pericardial tamponade. Inferior Vena Cava Normal inferior vena cava with >50% collapse upon inspiration consistent with normal right atrial pressure, 3 mmHg. Aorta The aortic measurements are indexed to age and body surface area. The aortic root at the sinus of Valsalva is not well visualized. The prox ascending aorta is not well visualized. Summary 1. Left ventricle size is normal and systolic function is normal. Visually estimated ejection fraction is 60-65%. The diastolic function is grade I diastolic dysfunction. 2. Right ventricle size is normal and systolic function is normal. Estimated PASP is 18 mmHg. No pulmonary hypertension. 3. There is moderate concentric hypertrophy noted in the left ventricle. 4. There is no significant tricuspid valve stenosis and trace regurgitation. 5. Normal inferior vena cava with >50% collapse upon inspiration consistent with normal right atrial pressure, 3 mmHg. 6. There is small to moderate circumferential pericardial effusion. No evidence of cardiac tamponade. There is fribrogenous exudate on LV and RV velez indicating chronic effusion. Report Signatures Finalized by Chris Gardner on 02/26/2025 01:14 PM
[2025-02-26 06:14] LABS: Anion Gap 9 (7-16); BUN/Creatinine Ratio 15 Ratio (12-20); Blood Urea Nitrogen 16 mg/dL (9-23); Calcium 8.3 mg/dL (8.3-10.6); Carbon Dioxide 34.6 mMol/L (20.0-31.0); Cardiac Risk Estimate 3.6 RATIO (3.7-5.6); Chloride 101 mMol/L (98-107); Cholesterol 195 mg/dL (132-200); Creatinine (Component) 1.1 mg/dL (0.6-1.3); Estimated Creatinine Clearance 84.4 mL/min (>60); Free T4 (Free Thyroxine) 0.17 ng/dL (0.89-1.76); Glucose 205 mg/dL (74-106); HDL Cholesterol 54 mg/dL (40-60); LDL Cholesterol,Calculated 108 mg/dL (0-130); Magnesium 1.7 mg/dL (1.6-2.6); Osmolality,Calculated 295 (275-295); Potassium 3.9 mMol/L (3.4-5.1); Sodium 145 mMol/L (136-145); Thyroid Stimulating Hormone 59.14 uIU/mL (0.55-4.78); Triglycerides 165 mg/dL (30-150); eGFR > 60 See Note
[2025-02-26 06:16] LABS: Glucose Estimated Average 148 mg/dL (80-131); Hemoglobin A1C 6.8 % Hgb (4.8-6.0)
[2025-02-26 06:18] LABS: Base Excess 2 (-3-3); HCO3 36 mEq/L (20-26); Inspired Oxygen, FIO2 100 %; O2 Saturation 96 % (91-98); PCO2 117 mmHg (32.0-48.0); PO2 102 mmHg (83-108)
[2025-02-26 06:20] LABS: Puncture Site Right Radial; pH, Arterial 7.10 (7.35-7.45)
[2025-02-26 06:21] LABS: Allen Test Performed/OK
[2025-02-26 07:14] LABS: Troponin I 0.027 ng/mL (0.0-0.045)
[2025-02-26 08:38] LABS: Base Excess 2 (-3-3); HCO3 33 mEq/L (20-26); O2 Saturation 100 % (91-98); PCO2 84 mmHg (32.0-48.0); PO2 372 mmHg (83-108); pH, Arterial 7.21 (7.35-7.45)
[2025-02-26 08:39] LABS: Allen Test Performed/OK; Inspired Oxygen, FIO2 100 %; Puncture Site Right Radial
[2025-02-26] MEDS: metroNIDAZOLE/NS 500 MG IVPB 500 MG/100 ML BAG 200 MG IV (08:40)
--- NOTE | 2025-02-26 09:00 | PC.SS ---
This SPECIAL MACHINE OPERATOR internal medicine nurse practitioner made 2 attempts to complete initial assessment at bedside with patient. She has been asleep and is on BIPAP machine. This SPECIAL MACHINE OPERATOR internal medicine nurse practitioner will reach out to in home sales representative to complete initial assessment.
--- NOTE | 2025-02-26 09:06 | PC.SS ---
This ADAPTIVE PHYSICAL EDUCATION SPECIALIST international trade teacher called responsible republican Sally Mcdowell, phone number listed is no longer in service.
[2025-02-26 09:35] LABS: Basophils # (Auto) 0.1 Thou/mm3 (0.0-0.2); Basophils % (Auto) 1 % (0-2.5); Eosinophils # (Auto) 0.0 Thou/mm3 (0.0-0.5); Eosinophils % (Auto) 0 % (0-10); Hematocrit 39.6 % (36.0-46.0); Hemoglobin 12.7 g/dL (12.0-16.0); Immature Granulocytes Auto 0.07 Thou/mm3 (0.00-0.00); Lymphocytes # (Auto) 0.4 Thou/mm3 (1.0-4.8); Lymphocytes % (Auto) 3 % (10-50); Mean Corpuscular HGB Conc 32.1 g/dl (31.0-37.0); Mean Corpuscular Hemoglobin 32.6 pg (25.0-35.0); Mean Corpuscular Volume 102 fL (80-100); Monocytes # (Auto) 0.5 Thou/mm3 (0.0-0.8); Monocytes % (Auto) 4 % (0-12); Neutrophils # (Auto) 11.6 Thou/mm3 (1.8-7.7); Neutrophils % (Auto) 92 % (37-80); Nucleated Red Blood Cell # 0.00 Thou/mm3 (0.00-0.00); Nucleated Red Blood Cell % 0 /100 WBC (0); Platelet Count 177 Thou/mm3 (140-440); RDW Standard Deviation 54.3 fL (36.4-46.3); Red Blood Count 3.89 Miln/mm3 (4.00-5.20); White Blood Count 12.7 Thou/mm3 (3.6-11.0)
[2025-02-26] MEDS: PIPER/TAZO INJ 4.5 GM in SODIUM CHLORIDE 0.9% (POP) 100 ML IV (09:49)
--- NOTE | 2025-02-26 10:29 | ESPR_ITS ---
<Statement entered by Yanci Christian MD - 02/26/25 18:24> The patient, currently on BiPAP, has shown significant improvement in CO2 levels and mental status. Upon bedside evaluation, the patient was (AO x 3). However, a repeat ABG showed CO2 still elevated at 71 mmHg. The patient has not been fully compliant with BiPAP, with a significant mask leak observed. Respiratory therapy was contacted, and a mask change was made . The patient?s daughter noted improved mentation as well. Plan: Continue broad-spectrum antibiotics and BiPAP for acute hypoxic respiratory failure. Consider undiagnosed MELISSA as a contributing factor to the respiratory issues. A repeat ABG will be obtained at 11:00 PM, and voip technician staff will be notified for follow-up. Close monitoring and compliance with BiPAP will be emphasized. might need a seater for mask complaince. I discussed with and supervised the regulatory affairs internship physician who took care of this patient. I personally saw and examined the patient and discussed the assessment and plan with the entire medicine team, including my attending , I agree with the assessment and plan as documented below Yanci Christian M.D. PGY-3 Disclaimer: Despite multiple revisions, due to the dictation software being used, the document bellow may not be free of grammatical errors including phonetic/typographic errors. However, this does not deter from our commitment to providing health care in the patient's best interest in mind. Documentation for date of: 02/26/25 Subjective Subjective Interval history: The patient, currently on BiPAP, has shown significant improvement in CO2 levels and mental status, and was AO x 3 upon bedside evaluation. However, a repeat ABG showed CO2 still elevated at 71 mmHg. The patient has had difficulty with BiPAP compliance due to a significant mask leak, and respiratory therapy was consulted for a mask change. The patient's daughter also reported improved mentation. The plan is to continue broad-spectrum antibiotics and BiPAP for acute hypoxic respiratory failure, while considering undiagnosed MELISSA as a potential contributing factor. A repeat ABG will be obtained at 11:00 PM, with voip technician staff notified for follow-up. Compliance with BiPAP will be emphasized, and a better-fitting mask or seat may be needed to improve adherence. Close monitoring will continue, with reassessment as necessary. Exam Vital Signs Temp Pulse Resp BP Pulse Ox O2 Del Method O2 Flow Rate 97.9 F 65 22 H 119/86 H 100 BiPAP 100 02/26/25 06:15 02/26/25 08:55 02/26/25 08:55 02/26/25 08:55 02/26/25 08:55 02/26/25 08:55 02/26/25 06:29 Narrative Exam General: No acute distress, morbidly obese, minimally interactive with exam Eye: PERRL, EOMI, right eyelid closed (chronic) HENT: Normocephalic, atraumatic, normal hearing, moist oral mucosa, hoarse voice (chronic) Neck: Supple, non-tender, no JVD, no lymphadenopathy Lungs: Clear to auscultation bilaterally but difficult to hear breath sounds, non-labored respirations, symmetric chest rise, no use of accessory muscles, spO2 99% on 80% FiO2 on BiPaP Heart: Normal S1 and S2, no S3 or S4 appreciated. Normal rate and regular rhythm, no murmurs, rubs gallops. 2+ b/l edema Abdomen: Soft, nondistended. TTP of epigastric, LUQ and LLQ Musculoskeletal: Normal range of motion and strength, no tenderness or swelling Skin: Skin is warm, dry, no rashes or lesions. Venous stasis dermatitis b/l LE Neurologic: Alert, awake and oriented x3. CN II-XII grossly intact. Able to follow commands but somnolent. No focal neuro deficits. No signs of meningeal irritation noted. Psychiatric: Cooperative, appropriate mood and affect Objective Labs 02/27/25 05:40 02/27/25 05:40 Labs: Laboratory Results - last 24 hr 02/25/25 02/25/25 02/25/25 15:30 19:57 22:31 WBC 15.2 H RBC 4.45 Hgb 14.6 Hct 44.4 MCV 100 MCH 32.8 MCHC 32.9 RDW Std Deviation 51.8 H Plt Count 225 Neut % (Auto) 86 H Lymph % (Auto) 9 L Mills % (Auto) 3 Eos % (Auto) 1 Baso % (Auto) 0 Neut # (Auto) 13.1 H Lymph # (Auto) 1.4 Mills # (Auto) 0.4 Eos # (Auto) 0.2 Baso # (Auto) 0.1 Immature Gran # (Auto) 0.05 H Absolute Nucleated RBC 0.00 Immature Gran % 0 Nucleated RBC % 0 Puncture Site ABG pH ABG pCO2 ABG pO2 ABG HCO3 ABG O2 Saturation ABG Base Excess FiO2 Sodium 143 Potassium 3.5 Chloride 99 Carbon Dioxide 32.4 H Anion Gap 12 BUN 12 Creatinine 1.2 Estim Creat Clear Calc 77.3 eGFR 54 L BUN/Creatinine Ratio 10 L Glucose [address] Glu mg/dL Hemoglobin A1c Calculated Osmolality 287 Lactic Acid 1.3 Calcium 9.4 Corrected Calcium 9.4 Magnesium Total Bilirubin 1.0 AST 21 ALT 9 L Alkaline Phosphatase 65 Troponin I Total Protein 7.1 Albumin 4.5 Globulin 2.6 Albumin/Globulin Ratio 1.7 Triglycerides Cholesterol LDL Cholesterol, Calc HDL Cholesterol Cholesterol/HDL Ratio Lipase 35 Procalcitonin TSH Free T4 Ur Collection Type Clean Catch Urine Color Drk-[place] A Urine Clarity Turbid A Urine pH 6.0 Ur Specific [place] 1.034 Urine Protein 3+ A Urine Glucose (UA) Trace Urine Ketones Trace Urine Blood 2+ A Urine Nitrite Negative Urine Bilirubin 1+ A Urine Urobilinogen (Auto) 12 Ur Leukocyte Esterase Positive Urine RBC 27 H Urine WBC 158 H Ur Squamous Epith Cells 55 H Urine Bacteria None Hyaline Casts 5 H Urine HCG, Qual Negative 02/26/25 02/26/25 02/26/25 00:00 01:15 02:53 WBC RBC Hgb Hct MCV MCH MCHC RDW Std Deviation Plt Count Neut % (Auto) Lymph % (Auto) Mills % (Auto) Eos % (Auto) Baso % (Auto) Neut # (Auto) Lymph # (Auto) Mills # (Auto) Eos # (Auto) Baso # (Auto) Immature Gran # (Auto) Absolute Nucleated RBC Immature Gran % Nucleated RBC % Puncture Site Left Radial ABG pH 7.07 L* ABG pCO2 116 H* ABG pO2 96 ABG HCO3 34 H ABG O2 Saturation 95 ABG Base Excess 0 FiO2 21 Sodium Potassium Chloride Carbon Dioxide Anion Gap BUN Creatinine Estim Creat Clear Calc eGFR BUN/Creatinine Ratio Glucose Estimated Ave Glu mg/dL Hemoglobin A1c Calculated Osmolality Lactic Acid 0.7 Calcium Corrected Calcium Magnesium Total Bilirubin AST ALT Alkaline Phosphatase Troponin I Total Protein Albumin Globulin Albumin/Globulin Ratio Triglycerides Cholesterol LDL Cholesterol, Calc HDL Cholesterol Cholesterol/HDL Ratio Lipase Procalcitonin 1.10 H TSH Free T4 Ur Collection Type Urine Color Urine Clarity Urine pH Ur Specific [place] Urine Protein Urine Glucose (UA) Urine Ketones Urine Blood Urine Nitrite Urine Bilirubin Urine Urobilinogen (Auto) Ur Leukocyte Esterase Urine RBC Urine WBC Ur Squamous Epith Cells Urine Bacteria Hyaline Casts Urine HCG, Qual 02/26/25 02/26/25 02/26/25 04:39 05:00 06:13 WBC 12.7 H RBC 3.89 L Hgb 12.7 Hct 39.6 MCV 102 H MCH 32.6 MCHC 32.1 RDW Std Deviation 54.3 H Plt Count 177 D Neut % (Auto) 92 H Lymph % (Auto) 3 L Mills % (Auto) 4 Eos % (Auto) 0 Baso % (Auto) 1 Neut # (Auto) 11.6 H Lymph # (Auto) 0.4 L [place] # (Auto) 0.5 Eos # (Auto) 0.0 Baso # (Auto) 0.1 Immature Gran # (Auto) 0.07 H Absolute Nucleated RBC 0.00 Immature Gran % 1 H Nucleated RBC % 0 Puncture Site Left Radial Right Radial ABG pH 7.17 L* D 7.10 L* ABG pCO2 98 H* D 117 H* D ABG pO2 140 H D 102 D ABG HCO3 36 H 36 H ABG O2 Saturation 99 H 96 ABG Base Excess 4 H 2 FiO2 55 100 Sodium 145 Potassium 3.9 Chloride 101 Carbon Dioxide 34.6 H Anion Gap 9 BUN 16 Creatinine 1.1 Estim Creat Clear Calc 84.4 eGFR > 60 BUN/Creatinine Ratio 15 Glucose [address] Glu mg/dL 148 H Hemoglobin A1c 6.8 H Calculated Osmolality 295 Lactic Acid Calcium 8.3 Corrected Calcium Magnesium 1.7 Total Bilirubin AST ALT Alkaline Phosphatase Troponin I 0.027 Total Protein Albumin Globulin Albumin/Globulin Ratio Triglycerides 165 H Cholesterol 195 LDL Cholesterol, Calc 108 HDL Cholesterol 54 Cholesterol/HDL Ratio 3.6 L Lipase Procalcitonin TSH 59.14 H* Free T4 0.17 L Ur Collection Type Urine Color Urine Clarity Urine pH Ur Specific [place] Urine Protein Urine Glucose (UA) Urine Ketones Urine Blood Urine Nitrite Urine Bilirubin Urine Urobilinogen (Auto) Ur Leukocyte Esterase Urine RBC Urine WBC Ur Squamous Epith Cells Urine Bacteria Hyaline Casts Urine HCG, Qual 02/26/25 08:33 WBC RBC Hgb Hct MCV MCH MCHC RDW Std Deviation Plt Count Neut % (Auto) Lymph % (Auto) Mills % (Auto) Eos % (Auto) Baso % (Auto) Neut # (Auto) Lymph # (Auto) Mills # (Auto) Eos # (Auto) Baso # (Auto) Immature Gran # (Auto) Absolute Nucleated RBC Immature Gran % Nucleated RBC % Puncture Site Right Radial ABG pH 7.21 L D ABG pCO2 84 H* D ABG pO2 372 H D ABG HCO3 33 H ABG O2 Saturation 100 H ABG Base Excess 2 FiO2 100 Sodium Potassium Chloride Carbon Dioxide Anion Gap BUN Creatinine Estim Creat Clear Calc eGFR BUN/Creatinine Ratio Glucose Estimated Ave Glu mg/dL Hemoglobin A1c Calculated Osmolality Lactic Acid Calcium Corrected Calcium Magnesium Total Bilirubin AST ALT Alkaline Phosphatase Troponin I Total Protein Albumin Globulin Albumin/Globulin Ratio Triglycerides Cholesterol LDL Cholesterol, Calc HDL Cholesterol Cholesterol/HDL Ratio Lipase Procalcitonin TSH Free T4 Ur Collection Type Urine Color Urine Clarity Urine pH Ur Specific [place] Urine Protein Urine Glucose (UA) Urine Ketones Urine Blood Urine Nitrite Urine Bilirubin Urine Urobilinogen (Auto) Ur Leukocyte Esterase Urine RBC Urine WBC Ur Squamous Epith Cells Urine Bacteria Hyaline Casts Urine HCG, Qual ABG Interpretation ABG results: 02/26/25 02/26/25 02/26/25 02:53 04:39 06:13 ABG pH 7.07 L* 7.17 L* D 7.10 L* ABG pCO2 116 H* 98 H* D 117 H* D ABG pO2 96 140 H D 102 D ABG HCO3 34 H 36 H 36 H ABG O2 Saturation 95 99 H 96 ABG Base Excess 0 4 H 2 02/26/25 08:33 ABG pH 7.21 L D ABG pCO2 84 H* D ABG pO2 372 H D ABG HCO3 33 H ABG O2 Saturation 100 H ABG Base Excess 2 Quality Measures Quality Measures none Assessment & Plan Assessment Current Active Medications: Generic Name Dose Route Start Last Admin Trade Name Freq PRN Reason Stop Dose Admin Acetaminophen 650 mg 02/26/25 01:25 Acetaminophen 325 Mg Tablet PO 03/28/25 01:24 Q6H PRN Fever >100.3 Acetaminophen 650 mg 02/26/25 01:25 Acetaminophen 325 Mg Tablet PO 03/28/25 01:24 Q6H PRN PAIN SCALE 1-3 (mild Amlodipine Besylate 10 mg 02/26/25 09:00 02/26/25 10:11 Amlodipine Besylate 5 Mg Tablet PO 03/28/25 08:59 Not Given QDAY ÁNGEL Aspirin 81 mg 02/26/25 09:00 02/26/25 10:12 Aspirin Ec 81 Mg Tabec PO 03/28/25 08:59 Not Given QDAY [facility] Atorvastatin Calcium 40 mg 02/26/25 21:00 Atorvastatin Calcium 20 Mg Tablet PO 03/28/25 20:59 HS ÁNGEL Dextrose 50 ml 02/26/25 05:51 Dextrose 50%-Water Inj 50 Ml Syringe IV 03/28/25 05:50 Q15MIN PRN BG <50 OR BG <70 & pt unresponsive Dextrose 25 ml 02/26/25 05:51 Dextrose 50%-Water Inj 50 Ml Syringe IV 03/28/25 05:50 Q15MIN PRN BG 50-70 responsive npo pt Glucagon 1 mg 02/26/25 05:51 Glucagon Inj 1 Mg Vial IM Q15MIN PRN BG <70, and no IV access Heparin Sodium (Porcine) 5,000 unit 02/26/25 06:00 02/26/25 05:39 Heparin Sod Inj 5000 Unit/Ml Vial SC 03/12/25 05:59 5,000 unit Q8HR [facility] Administration Piperacillin/Tazobactam/Dextrose 3.375 gm in 50 mls @ 12.5 mls/hr 02/26/25 14:00 Zosyn IV 03/05/25 13:59 Q8HR [facility] Protocol Insulin Human Lispro 0 unit 02/26/25 06:00 02/26/25 06:16 Insulin Lispro (Admelog) 1 Unit/0.01 Ml Unit SC 03/28/25 05:59 Not Given Q6H [facility] Protocol Labetalol HCl 10 mg 02/26/25 08:49 Labetalol Inj 5 Mg/Ml Vial 20 Ml IVP 03/28/25 08:48 Q4H PRN sbp >160 Levothyroxine Sodium 125 mcg/ 175 mcg 02/27/25 06:00 Levothyroxine Sodium 50 mcg PO 03/29/25 05:59 ACBR [facility] Losartan Potassium 25 mg 02/26/25 09:00 02/26/25 10:12 Losartan Potassium 25 Mg Tablet PO 03/28/25 08:59 Not Given QDAY [facility] Morphine Sulfate 2 mg 02/26/25 01:30 02/26/25 01:53 Morphine Sulf Inj 4 Mg/Ml Vial IVP 03/03/25 01:29 2 mg Q6HR PRN Administration pain 4-7 Ondansetron HCl 4 mg 02/26/25 01:25 02/26/25 01:54 Ondansetron Inj 2 Mg/Ml Inj 2 Ml IVP 03/28/25 01:24 4 mg Q6H PRN Administration NAUSEA OR VOMITING Protocol Plan 54-year-old female with past medical history of morbid obesity, hyperlipidemia, hypertension, T2DM, cholecystectomy, [place], hypothyroidism, MRSA + periorbital cellulitis, anemia who presented to the ED on 02/25 with epigastric and left upper and lower quadrant abdominal pain x 3 days. Admitted for acute hypercapneic respiratory failure, diverticulitis. #Acute encephalopathy #Acute hypoxic hypercapnic respiratory failure #Primary respiratory acidosis with acute metabolic compensation Respiratory failure likely secondary to obesity hypoventilation syndrome due to MELISSA Patient was minimally responsive upon exam, AO x 3, able to answer questions and follow commands when asked directly. Upon subsequent examination patient only awoke to noxious stimuli ABG 7.07, CO2 116, O2 96. HCO3 on CMP 32. AG 14. Procal 1.10. Given NaHCO3 100 mgEQ IV. ABG after BiPAP improved to pH 7.21, pCO2 84, pO2 372 within a couple hours ABG at 2:20 PM showed pH 7.29, pCO2 71, pO2 169, patient's ABG was not improving because of air leak greater than 80 mL Plan: -Continue BiPAP with repeat ABG as needed. -ABG after BiPAP: pH 7.21, pCO2 84, pO2 372, showing initial improvement. -ABG at 2:20 PM: pH 7.29, pCO2 71, pO2 169. Minimal improvement likely due to air leak >80 mL. -Next ABG at 5 PM; additional ABG at 11 PM. Adjust BiPAP pressures as needed. -NPO due to encephalopathy. #Pericardial effusion, chronic #c/f pericarditis Pt denies chest pain, afebrile, hypertensive Seen on CTA a/p. No aortic dissection seen on CTA prelim read DDX: post-IA, hypothyroidism, viral, malignancy, inflammatory/autoimmune Echo done 02/26 showed pericardium appears normal. There is small to moderate circumferential pericardial effusion. No evidence of cardiac tamponade. Fribrogenous exudate on LV and RV velez indicating chronic effusion. Plan: - Cardiology consulted, Dr. Thyarapran, see recs #Hypertension, chronic #Hypertensive urgency - resolved 188/105 (HR 88) --> 134/93, HR 69 Plan: - Amlodipine 10 mg daily (listed as home med) - Losartan 25 mg daily (listed as home med) - Held carvedilol given HR (home med listed as 3.125 mg BID) #Diverticulosis #Sigmoid diverticulitis Patient is afebrile. Lactic acid improved from 1.3 to 0.7, and lipase is within normal limits. CT A/P without contrast showed colonic diverticulosis with abnormal small bowel loops, wall thickening, and inflammatory changes, suggesting acute diverticulitis of the sigmoid colon. CT A/P also revealed hepatocellular disease with irregular liver contour, a 19 mm uterine fundal mass, and mild nodular thickening of the adrenal glands. CTA A/P confirmed diverticulosis of the colon, thickening of the cecum and ascending colon, and inflammatory changes. No evidence of bowel obstruction, free fluid, free air, or abscess. Right adrenal nodule 2.2 cm noted. Given ceftriaxone 1 g IV, morphine 4 mg IV, Zofran 4 mg IV, 500 mL NS, metronidazole 500 mg IV. Plan: - Continue Zosyn 3.375 every 8 hours - Pending blood cx - Consult general surgery, Dr. Hughes, appreciate recs #Pyuria #Hematuria #Bilirubinuria #Hyaline casts Denies urinary sx BUN 12, Cr 1.2., eGFR 54 on admit UA showed 3+ protein, 2+ blood, +LE, 1+ bilirubin, 27 RBC, 158 WBC, 55 squamous epithelial cells, 5 hyaline casts Plan: - Pending urine cx - covered with Zosyn #T2DM A1c 6.8 Plan: - SSI #Hypothyroidism TSH 59.14, T4 0.17 Plan: - Levothyroxine 175 mg daily #Hyperlipidemia #Hx of IA - Continue Aspirin 81 mg daily, atorvastatin 40 mg daily (listed as home med) Health maintenance Dispo: Admit to tele for w/u acute hypercapneic respiratory failure, diverticulitis Diet: NPO Bowel Reg: n/a VTE ppx: heparin subQ GI ppx: n/a Pain mgmt: Tylenol, morphine 2 mg IV q6h PRN Code status: full Case discussed with my attending Dr. Dyson, and senior resident, Dr. Gino Kellogg MD PGY-1 Attending Provider Attestation/Addendum I have examined the patient, reviewed labs and imaging findings, discussed the case with the resident(s), and reviewed entered orders. I agree with the plan of care as outlined in this note, with these additional summaries/recommendations: Patient seen at bedside. Patient on BiPAP and speech difficult to understand. She is easily arousable and following instructions. Patient diagnosed with acute hypoxic and hypercapnic respiratory failure most likely secondary to an OHS/MELISSA with superimposed bibasilar pneumonia. Continue BiPAP and trend ABGs as hypercapnia appears more acute in nature. Once more improved we will DC BiPAP. Breathing treatments as needed. No prior history of COPD per patient and no wheezing noted on physical exam although difficult to auscultate secondary to body habitus. Patient also noted to have diverticulitis and started on IV antibiotics. Follow-up blood cultures. Bowel rest and pain management. Pericardial effusion noted on CT and echocardiogram obtained which showed fibrinogeneous indicating chronic effusion. Cardiology following. Nodular thickening of right adrenal gland noted and patient will need elective MRI outpatient for further workup and management. Patient has severely uncontrolled hypothyroidism. Unclear if she has been taking her levothyroxine. TSH 59.14 and free T40.17. Insulin sliding scale for diabetes mellitus type 2 with Accu- Cheks. Target blood sugar of 140-180 while hospitalized. Patient updated on the plan and agreement. All questions answered to satisfaction. Please see residents note for additional details and management. Dr. Kiel MD
[2025-02-26 11:42] LABS: Base Excess, Venous 1 (-3-3); O2 Saturation, Venous 99 % (96-97); PCO2, Venous 61 mmHg (36-56); PO2, Venous 134 mmHg (15-58); pH, Venous 7.29 (7.33-7.66)
[2025-02-26 11:43] LABS: Base Excess 4 (-3-3); HCO3 34 mEq/L (20-26); Inspired Oxygen, FIO2 80 %; O2 Saturation 100 % (91-98); PCO2 78 mmHg (32.0-48.0); PO2 223 mmHg (83-108); pH, Arterial 7.25 (7.35-7.45)
[2025-02-26 11:48] LABS: Allen Test Performed/OK; Puncture Site Right Radial
[2025-02-26] MEDS: DEXTROSE 50%-WATER INJ 50 ML SYRINGE 25 ML IV (13:11)
[2025-02-26 14:32] LABS: Base Excess 5 (-3-3); HCO3 34 mEq/L (20-26); O2 Saturation 100 % (91-98); PCO2 71 mmHg (32.0-48.0); PO2 169 mmHg (83-108); pH, Arterial 7.29 (7.35-7.45)
[2025-02-26 14:34] LABS: Allen Test Performed/OK; Inspired Oxygen, FIO2 20 %; Puncture Site Right Radial
[2025-02-26] MEDS: PIPER/TAZO 3.375 GM PREMIX 3.375 GM/50 ML BAG IV ×2 (15:18→22:02)
--- NOTE | 2025-02-26 18:17 | PC.NURSE ---
Dr. Kellogg notified patient has purple toes and mottled skin to bilateral lower extremities. Doppler ultrasound was used to confirm pulses to lower extremities.
--- NOTE | 2025-02-26 19:02 | PD.IMCONS ---
HPI Data of Consult Requesting Physician: Edward Dyson MD Primary Care Provider: Physician No Primary/Family Consult Narrative History of present illness: This is a 54-year-old female with past medical history of morbid obesity, hyperlipidemia, hypertension, T2DM, cholecystectomy, [place], hypothyroidism, MRSA + periorbital cellulitis, anemia who presented to the ED on 02/25 with epigastric and left upper and lower quadrant abdominal pain x 3 days. cc:: cc: Edward Dyson MD Meds Home Medications and Allergies Home Medications ?Medication ?Instructions ?Recorded ?Confirmed ?Type metformin 500 mg tablet 500 mg PO BID 04/06/21 02/26/25 History amlodipine 10 mg tablet 10 mg PO DAILY 02/26/25 02/26/25 History cholecalciferol (vitamin D3) 125 5,000 unit PO .weekly 02/26/25 02/26/25 History mcg (5,000 unit) tablet ezetimibe 10 mg tablet 10 mg PO QDAY 02/26/25 02/26/25 History ferrous sulfate 325 mg (65 mg 325 mg PO .3 times per week 02/26/25 02/26/25 History iron) tablet furosemide 20 mg tablet 20 mg PO QDAY 02/26/25 02/26/25 History losartan 50 mg tablet 50 mg PO QDAY 02/26/25 02/26/25 History rosuvastatin 40 mg tablet 40 mg PO DAILY 02/26/25 02/26/25 History Allergies Allergy/AdvReac Type Severity Reaction Status Date / Time No Known Allergies Allergy Verified 02/25/25 14:29 Exam Vital Signs Temp Pulse Resp BP Pulse Ox O2 Del Method O2 Flow Rate 97.3 F 79 24 H 148/90 H 99 BiPAP 100 02/26/25 16:00 02/26/25 18:48 02/26/25 18:48 02/26/25 16:00 02/26/25 18:48 02/26/25 16:00 02/26/25 18:48 FiO2 70 02/26/25 18:48 Results Labs 02/26/25 05:00 02/26/25 05:00 Labs: Short CBC 02/26/25 Range/Units 05:00 WBC 12.7 H (3.6-11.0) Thou/mm3 Hgb 12.7 (12.0-16.0) g/dL Hct 39.6 (36.0-46.0) % Plt Count 177 D (140-440) Thou/mm3 BMP 02/26/25 05:00 Sodium 145 Potassium 3.9 Chloride 101 Carbon Dioxide 34.6 H BUN 16 Creatinine 1.1 Glucose 205 H D Calcium 8.3 Cardiac Enzymes 02/26/25 Range/Units 05:00 Troponin I 0.027 (0.0-0.045) ng/mL Urine 02/25/25 Range/Units 19:57 Urine Color Drk-[place] A (Lt Yel-Yel) Urine Clarity Turbid A (Clear/Hazy) Urine pH 6.0 (5.0-7.0) Ur Specific [place] 1.034 (1.001-1.035) Urine Protein 3+ A (Neg - Trace) Urine Glucose (UA) Trace (Negative) ABG Interpretation ABG results: 02/26/25 02/26/25 02/26/25 02:53 04:39 06:13 ABG pH 7.07 L* 7.17 L* D 7.10 L* ABG pCO2 116 H* 98 H* D 117 H* D ABG pO2 96 140 H D 102 D ABG HCO3 34 H 36 H 36 H ABG O2 Saturation 95 99 H 96 ABG Base Excess 0 4 H 2 VBG pH VBG pCO2 VBG pO2 VBG Base Excess 02/26/25 02/26/25 02/26/25 08:33 11:37 11:39 ABG pH 7.21 L D 7.25 L ABG pCO2 84 H* D 78 H* ABG pO2 372 H D 223 H D ABG HCO3 33 H 34 H ABG O2 Saturation 100 H 100 H ABG Base Excess 2 4 H VBG pH 7.29 L VBG pCO2 61 H VBG pO2 134 H VBG Base Excess 1 02/26/25 14:20 ABG pH 7.29 L ABG pCO2 71 H* ABG pO2 169 H D ABG HCO3 34 H ABG O2 Saturation 100 H ABG Base Excess 5 H VBG pH VBG pCO2 VBG pO2 VBG Base Excess
[2025-02-26 19:28] LABS: Base Excess 6 (-3-3); HCO3 35 mEq/L (20-26); O2 Saturation 100 % (91-98); PCO2 71 mmHg (32.0-48.0); PO2 191 mmHg (83-108); pH, Arterial 7.30 (7.35-7.45)
[2025-02-26 19:29] LABS: Allen Test Performed/OK; Inspired Oxygen, FIO2 70 %; Puncture Site Right Radial
[2025-02-26 20:31] LABS: Lactate (Lactic Acid) 3.5 mMol/L (0.4-2.0)
[2025-02-26] MEDS: RINGERS LACTATED 500 ML 500 ML 999 ML IV (22:16)
--- NOTE | 2025-02-26 22:53 | PC.NURSE ---
VANCO TROUGH RESULT PENDING, CALLED LAB AND SPOKE TO ROBERT AND STATED RESULT MAYBE READY IN 15 MINS. WILL FOLLOW UP.
--- NOTE | 2025-02-26 22:57 | PC.NURSE ---
DR. BENJAMIN HIGHTOWER CAME TO EVALUATE PT. AWARE OF MOTTLED FEET AND CYANOTIC TOES, [employer]ES [employer]ICER ROSALINA ALSO IN ROOM ASSISTING RN WITH IV.
[2025-02-26 23:30] LABS: Reflex Lactate? Y
[2025-02-27] VITALS (14 sets, daily range): BP systolic 114–155; BP diastolic 74–94; PULSE 60–81; RESP 10–28; TEMP 35.9–36.8; O2SAT 8–100; BMI 63.3; BMI 63.2
[2025-02-27 00:31] LABS: Lactic Acid, 3 HR 0.6 mMol/L (0.4-2.0)
[2025-02-27 02:31] LABS: Base Excess 9 (-3-3); HCO3 36 mEq/L (20-26); Inspired Oxygen, FIO2 50 %; O2 Saturation 98 % (91-98); PCO2 61 mmHg (32.0-48.0); PO2 89 mmHg (83-108); pH, Arterial 7.38 (7.35-7.45)
[2025-02-27 02:37] LABS: Allen Test Performed/OK; Puncture Site Left Radial
[2025-02-27] MEDS: HEPARIN SOD INJ 5000 UNIT/ML VIAL SC ×3 (05:10→21:52)
[2025-02-27] MEDS: PIPER/TAZO 3.375 GM PREMIX 3.375 GM/50 ML BAG IV ×3 (05:10→21:52)
[2025-02-27 06:25] LABS: Basophils # (Auto) 0.0 Thou/mm3 (0.0-0.2); Basophils % (Auto) 0 % (0-2.5); Eosinophils # (Auto) 0.1 Thou/mm3 (0.0-0.5); Eosinophils % (Auto) 1 % (0-10); Hematocrit 35.5 % (36.0-46.0); Hemoglobin 11.8 g/dL (12.0-16.0); Immature Granulocytes Auto 0.08 Thou/mm3 (0.00-0.00); Lymphocytes # (Auto) 1.3 Thou/mm3 (1.0-4.8); Lymphocytes % (Auto) 12 % (10-50); Mean Corpuscular HGB Conc 33.2 g/dl (31.0-37.0); Mean Corpuscular Hemoglobin 33.8 pg (25.0-35.0); Mean Corpuscular Volume 102 fL (80-100); Monocytes # (Auto) 0.5 Thou/mm3 (0.0-0.8); Monocytes % (Auto) 4 % (0-12); Neutrophils # (Auto) 9.1 Thou/mm3 (1.8-7.7); Neutrophils % (Auto) 82 % (37-80); Nucleated Red Blood Cell # 0.00 Thou/mm3 (0.00-0.00); Nucleated Red Blood Cell % 0 /100 WBC (0); Platelet Count 169 Thou/mm3 (140-440); RDW Standard Deviation 53.2 fL (36.4-46.3); Red Blood Count 3.49 Miln/mm3 (4.00-5.20); White Blood Count 11.0 Thou/mm3 (3.6-11.0)
[2025-02-27 06:37] LABS: INR 1.1 (0.9-1.3); Partial Thromboplastin Time 30.6 Seconds (22.0-36.0); Prothrombin Time 11.8 Seconds (9.0-12.2)
[2025-02-27 06:41] LABS: Anion Gap 9 (7-16); BUN/Creatinine Ratio 15 Ratio (12-20); Blood Urea Nitrogen 17 mg/dL (9-23); Calcium 9.0 mg/dL (8.3-10.6); Carbon Dioxide 34.3 mMol/L (20.0-31.0); Chloride 100 mMol/L (98-107); Creatinine (Component) 1.1 mg/dL (0.6-1.3); Estimated Creatinine Clearance 83.5 mL/min (>60); Glucose 94 mg/dL (74-106); Magnesium 1.8 mg/dL (1.6-2.6); Osmolality,Calculated 286 (275-295); Phosphorous 3.1 mg/dL (2.4-5.1); Potassium 3.8 mMol/L (3.4-5.1); Sodium 143 mMol/L (136-145); eGFR > 60 See Note
[2025-02-27] MEDS: POTASSIUM CHL 10 mEq IVPB 10 MEQ/100 ML BAG 100 MEQ IV (08:29)
[2025-02-27] MEDS: ASPIRIN EC 81 MG TABEC PO (08:31)
[2025-02-27] MEDS: LOSARTAN POTASSIUM 25 MG TABLET PO (08:31)
[2025-02-27] MEDS: POTASSIUM CHL 10 mEq IVPB 10 MEQ/100 ML BAG 150 MEQ IV (09:33)
[2025-02-27] MEDS: Magnesium Sulfate 4 GM Ivpb 4 GM/50 ML BAG IV (09:34)
[2025-02-27 09:38] LABS: Base Excess 10 (-3-3); HCO3 35 mEq/L (20-26); Inspired Oxygen, FIO2 21 %; O2 Saturation 100 % (91-98); PCO2 49 mmHg (32.0-48.0); PO2 120 mmHg (83-108); pH, Arterial 7.46 (7.35-7.45)
[2025-02-27 09:39] LABS: Allen Test Performed/OK; Puncture Site Right Radial
[2025-02-27] MEDS: ALBUTEROL/IPRATROPIUM (Duoneb) RT SOL 3 ML NEBU INH (11:26)
[2025-02-27] MEDS: POTASSIUM CHL 10 mEq IVPB 10 MEQ/100 ML BAG 50 MEQ IV ×2 (11:28→13:33)
--- NOTE | 2025-02-27 13:58 | ESPR_ITS ---
<Statement entered by Patrice Lynne MD - 02/27/25 18:11> Patient seen and assessed in hospital bed continues to be on BiPAP, FiO2 of 30. Attempted to wean off the patient off BiPAP as ABG showed improvement in pCO2; however, patient desaturates to low 80s when BiPAP is removed. Consulted order control clerk blood bank for recommendations; moreover, recommendations are to continue BiPAP and to monitor the patient. Patient likely developed acute on chronic hypercapnic respiratory failure secondary to initiation of sedatives and pain medications for the acute abdominal pain. Patient also has a pericardial effusion which was noted on echo; moreover, will follow-up on cardiology recommendations regarding findings. Patient is awake and does answer questions appropriately, will continue BiPAP at this time and repeat weaning off process in the morning. I have personally seen and examined the patient. I agree with the resident's assessment and plan as documented below. Patrice Lynne DO PGY-2 Internal Medicine - GME Documentation for date of: 02/27/25 Subjective Subjective Interval history: The patient is currently on BiPAP and has shown significant improvement in both CO2 levels and mental status. Upon bedside evaluation, the patient was alert and oriented to person, place, and time. A trial to wean the patient off BiPAP was attempted, but the patient failed, with oxygen saturation dropping into the 70s. In the ED on 02/26, the patient received a total of 2 mg of Versed and 6 mg of morphine, which likely contributed to respiratory failure. Pulmonary consultation has been obtained with Dr. Guerin, who will assess the patient for further management regarding weaning off BiPaP. Plan for right now is to continue with the BiPAP. Added artificial tears and oral care. Lactated Ringer's 50 cc an hour for 1 bag. Exam Vital Signs Temp Pulse Resp BP Pulse Ox O2 Del Method O2 Flow Rate 97.6 F 70 28 H 152/92 H 99 BiPAP 100 02/27/25 08:00 02/27/25 11:26 02/27/25 11:26 02/27/25 08:31 02/27/25 11:26 02/27/25 08:00 02/27/25 08:00 FiO2 30 02/27/25 11:26 Narrative Exam General: No acute distress, morbidly obese, minimally interactive with exam Eye: PERRL, EOMI, right eyelid closed (chronic) HENT: Normocephalic, atraumatic, normal hearing, moist oral mucosa, hoarse voice (chronic) Neck: Supple, non-tender, no JVD, no lymphadenopathy Lungs: Clear to auscultation bilaterally but difficult to hear breath sounds, non-labored respirations, symmetric chest rise, no use of accessory muscles, on BiPaP Heart: Normal S1 and S2, no S3 or S4 appreciated. Normal rate and regular rhythm, no murmurs, rubs gallops. 2+ b/l edema Abdomen: Soft, nondistended. TTP of epigastric, LUQ and LLQ Musculoskeletal: Normal range of motion and strength, no tenderness or swelling Skin: Skin is warm, dry, no rashes or lesions. Venous stasis dermatitis b/l LE Neurologic: Alert, awake and oriented x3. CN II-XII grossly intact. Able to follow commands but somnolent. No focal neuro deficits. No signs of meningeal irritation noted. Psychiatric: Cooperative, appropriate mood and affect Objective Labs 02/28/25 05:24 02/28/25 05:24 Labs: Laboratory Results - last 24 hr 02/26/25 02/26/25 02/26/25 14:20 19:23 20:22 WBC RBC Hgb Hct MCV MCH MCHC RDW Std Deviation Plt Count Neut % (Auto) Lymph % (Auto) [place] % (Auto) Eos % (Auto) Baso % (Auto) Neut # (Auto) Lymph # (Auto) [place] # (Auto) Eos # (Auto) Baso # (Auto) Immature Gran # (Auto) Absolute Nucleated RBC Immature Gran % Nucleated RBC % PT INR APTT Puncture Site Right Radial Right Radial ABG pH 7.29 L 7.30 L ABG pCO2 71 H* 71 H* ABG pO2 169 H D 191 H D ABG HCO3 34 H 35 H ABG O2 Saturation 100 H 100 H ABG Base Excess 5 H 6 H FiO2 20 70 Sodium Potassium Chloride Carbon Dioxide Anion Gap BUN Creatinine Estim Creat Clear Calc eGFR BUN/Creatinine Ratio Glucose Calculated Osmolality Lactic Acid 3.5 H Calcium Phosphorus Magnesium 02/27/25 02/27/25 02/27/25 00:20 02:24 05:40 WBC 11.0 RBC 3.49 L Hgb 11.8 L Hct 35.5 L MCV 102 H MCH 33.8 MCHC 33.2 RDW Std Deviation 53.2 H Plt Count 169 Neut % (Auto) 82 H Lymph % (Auto) 12 [place] % (Auto) 4 Eos % (Auto) 1 Baso % (Auto) 0 Neut # (Auto) 9.1 H Lymph # (Auto) 1.3 [place] # (Auto) 0.5 Eos # (Auto) 0.1 Baso # (Auto) 0.0 Immature Gran # (Auto) 0.08 H Absolute Nucleated RBC 0.00 Immature Gran % 1 H Nucleated RBC % 0 PT 11.8 INR 1.1 APTT 30.6 Puncture Site Left Radial ABG pH 7.38 ABG pCO2 61 H D ABG pO2 89 D ABG HCO3 36 H ABG O2 Saturation 98 ABG Base Excess 9 H FiO2 50 Sodium 143 Potassium 3.8 Chloride 100 Carbon Dioxide 34.3 H Anion Gap 9 BUN 17 Creatinine 1.1 Estim Creat Clear Calc 83.5 eGFR > 60 BUN/Creatinine Ratio 15 Glucose 94 D Calculated Osmolality 286 Lactic Acid 0.6 Calcium 9.0 Phosphorus 3.1 Magnesium 1.8 02/27/25 09:26 WBC RBC Hgb Hct MCV MCH MCHC RDW Std Deviation Plt Count Neut % (Auto) Lymph % (Auto) [place] % (Auto) Eos % (Auto) Baso % (Auto) Neut # (Auto) Lymph # (Auto) [place] # (Auto) Eos # (Auto) Baso # (Auto) Immature Gran # (Auto) Absolute Nucleated RBC Immature Gran % Nucleated RBC % PT INR APTT Puncture Site Right Radial ABG pH 7.46 H ABG pCO2 49 H D ABG pO2 120 H D ABG HCO3 35 H ABG O2 Saturation 100 H ABG Base Excess 10 H FiO2 21 Sodium Potassium Chloride Carbon Dioxide Anion Gap BUN Creatinine Estim Creat Clear Calc eGFR BUN/Creatinine Ratio Glucose Calculated Osmolality Lactic Acid Calcium Phosphorus Magnesium ABG Interpretation ABG results: 02/26/25 02/26/25 02/26/25 02:53 04:39 06:13 ABG pH 7.07 L* 7.17 L* D 7.10 L* ABG pCO2 116 H* 98 H* D 117 H* D ABG pO2 96 140 H D 102 D ABG HCO3 34 H 36 H 36 H ABG O2 Saturation 95 99 H 96 ABG Base Excess 0 4 H 2 VBG pH VBG pCO2 VBG pO2 VBG Base Excess 02/26/25 02/26/25 02/26/25 08:33 11:37 11:39 ABG pH 7.21 L D 7.25 L ABG pCO2 84 H* D 78 H* ABG pO2 372 H D 223 H D ABG HCO3 33 H 34 H ABG O2 Saturation 100 H 100 H ABG Base Excess 2 4 H VBG pH 7.29 L VBG pCO2 61 H VBG pO2 134 H VBG Base Excess 1 02/26/25 02/26/25 02/27/25 14:20 19:23 02:24 ABG pH 7.29 L 7.30 L 7.38 ABG pCO2 71 H* 71 H* 61 H D ABG pO2 169 H D 191 H D 89 D ABG HCO3 34 H 35 H 36 H ABG O2 Saturation 100 H 100 H 98 ABG Base Excess 5 H 6 H 9 H VBG pH VBG pCO2 VBG pO2 VBG Base Excess 02/27/25 09:26 ABG pH 7.46 H ABG pCO2 49 H D ABG pO2 120 H D ABG HCO3 35 H ABG O2 Saturation 100 H ABG Base Excess 10 H VBG pH VBG pCO2 VBG pO2 VBG Base Excess Quality Measures Quality Measures none Assessment & Plan Assessment Current Active Medications: Generic Name Dose Route Start Last Admin Trade Name Freq PRN Reason Stop Dose Admin Acetaminophen 650 mg 02/26/25 01:25 Acetaminophen 325 Mg Tablet PO 03/28/25 01:24 Q6H PRN Fever >100.3 Acetaminophen 650 mg 02/26/25 01:25 Acetaminophen 325 Mg Tablet PO 03/28/25 01:24 Q6H PRN PAIN SCALE 1-3 (mild Albuterol/Ipratropium 3 ml 02/26/25 11:25 Albuterol/Ipratropium (Duoneb) Rt Christine 3 Ml Nebu INH 03/28/25 11:24 Q2HR PRN SHORTNESS OF BREATH OR WHEEZE Amlodipine Besylate 10 mg 02/26/25 09:00 02/27/25 08:30 Amlodipine Besylate 5 Mg Tablet PO 03/28/25 08:59 10 mg QDAY ÁNGEL Administration Artificial Tears 0 drop 02/27/25 13:36 Artificial Tears 225 Drop/15 Ml Btl BOTH EYES 03/29/25 13:35 PRN PRN TO KEEP EYES MOIST Aspirin 81 mg 02/26/25 09:00 02/27/25 08:31 Aspirin Ec 81 Mg Tabec PO 03/28/25 08:59 81 mg QDAY ÁNGEL Administration Atorvastatin Calcium 40 mg 02/26/25 21:00 02/26/25 21:56 Atorvastatin Calcium 20 Mg Tablet PO 03/28/25 20:59 Not Given HS ÁNGEL Dextrose 50 ml 02/26/25 05:51 Dextrose 50%-Water Inj 50 Ml Syringe IV 03/28/25 05:50 Q15MIN PRN BG <50 OR BG <70 & pt unresponsive Dextrose 25 ml 02/26/25 05:51 02/26/25 13:11 Dextrose 50%-Water Inj 50 Ml Syringe IV 03/28/25 05:50 25 ml Q15MIN PRN Administration BG 50-70 responsive npo pt Glucagon 1 mg 02/26/25 05:51 Glucagon Inj 1 Mg Vial IM Q15MIN PRN BG <70, and no IV access Heparin Sodium (Porcine) 5,000 unit 02/26/25 06:00 02/27/25 05:10 Heparin Sod Inj 5000 Unit/Ml Vial SC 03/12/25 05:59 5,000 unit Q8HR ÁNGEL Administration Piperacillin/Tazobactam/Dextrose 3.375 gm in 50 mls @ 12.5 mls/hr 02/26/25 14:00 02/27/25 05:10 Zosyn IV 03/05/25 13:59 12.5 mls/hr Q8HR ÁNGEL Administration Protocol Insulin Human Lispro 0 unit 02/26/25 06:00 02/27/25 12:00 Insulin Lispro (Admelog) 1 Unit/0.01 Ml Unit SC 03/28/25 05:59 Not Given Q6H ÁNGEL Protocol Labetalol HCl 10 mg 02/26/25 08:49 Labetalol Inj 5 Mg/Ml Vial 20 Ml IVP 03/28/25 08:48 Q4H PRN sbp >160 Levothyroxine Sodium 125 mcg/ 175 mcg 02/27/25 06:00 02/27/25 05:05 Levothyroxine Sodium 50 mcg PO 03/29/25 05:59 Not Given ACBR ÁNGEL Losartan Potassium 25 mg 02/26/25 09:00 02/27/25 08:31 Losartan Potassium 25 Mg Tablet PO 03/28/25 08:59 25 mg QDAY ÁNGEL Administration Morphine Sulfate 2 mg 02/26/25 01:30 02/26/25 01:53 Morphine Sulf Inj 4 Mg/Ml Vial IVP 03/03/25 01:29 2 mg Q6HR PRN Administration pain 4-7 Ondansetron HCl 4 mg 02/26/25 01:25 02/26/25 01:54 Ondansetron Inj 2 Mg/Ml Inj 2 Ml IVP 03/28/25 01:24 4 mg Q6H PRN Administration NAUSEA OR VOMITING Protocol Plan 54-year-old female with past medical history of morbid obesity, hyperlipidemia, hypertension, T2DM, cholecystectomy, NM, hypothyroidism, MRSA + periorbital cellulitis, anemia who presented to the ED on 02/25 with epigastric and left upper and lower quadrant abdominal pain x 3 days. Admitted for acute hypercapneic respiratory failure, diverticulitis. #Acute hypoxic hypercapnic respiratory failure Respiratory failure likely secondary to obesity hypoventilation syndrome due to MELISSA The patient's mentation has significantly improved since admission, likely in response to the initiation of BiPAP therapy. There is a marked improvement in hypercapnia as well. Most recent ABG shows pH 7.46, pCO2 49, pO2 120 Patient has been having air leaks with the BiPAP Patient was trialed off BiPAP however oxygenation dropped to the 70s so BiPAP was back on Plan: - Continue BiPap - Pulm consulted, Dr. Guerin, appreciate recs - NPO due to encephalopathy. #Diverticulosis #Sigmoid diverticulitis Patient is afebrile. Lactic acid improved from 1.3 to 0.7, and lipase is within normal limits. CT A/P without contrast showed colonic diverticulosis with abnormal small bowel loops, wall thickening, and inflammatory changes, suggesting acute diverticulitis of the sigmoid colon. CT A/P also revealed hepatocellular disease with irregular liver contour, a 19 mm uterine fundal mass, and mild nodular thickening of the adrenal glands. CTA A/P confirmed diverticulosis of the colon, thickening of the cecum and ascending colon, and inflammatory changes. No evidence of bowel obstruction, free fluid, free air, or abscess. Right adrenal nodule 2.2 cm noted. Given ceftriaxone 1 g IV, morphine 4 mg IV, Zofran 4 mg IV, 500 mL NS, metronidazole 500 mg IV. Plan: - Continue Zosyn 3.375 every 8 hours - Pending blood cx #Pericardial effusion, chronic #c/f pericarditis Pt denies chest pain, afebrile, hypertensive Seen on CTA a/p. No aortic dissection seen on CTA prelim read DDX: post-NM, hypothyroidism, viral, malignancy, inflammatory/autoimmune Echo done 02/26 showed pericardium appears normal. There is small to moderate circumferential pericardial effusion. No evidence of cardiac tamponade. Fribrogenous exudate on LV and RV velez indicating chronic effusion. Plan: - Cardiology consulted, Dr. Page, see recs #Hypertension, chronic #Hypertensive urgency - resolved 188/105 (HR 88) --> 134/93, HR 69 Plan: - Amlodipine 10 mg daily (listed as home med) - Losartan 25 mg daily (listed as home med) - Held carvedilol given HR (home med listed as 3.125 mg BID) #T2DM A1c 6.8 Plan: - SSI #Hypothyroidism TSH 59.14, T4 0.17 Plan: - Levothyroxine 175 mg daily #Hyperlipidemia #Hx of NM - Continue Aspirin 81 mg daily, atorvastatin 40 mg daily (listed as home med) Health maintenance Dispo: Admit to tele for w/u acute hypercapneic respiratory failure, diverticulitis Diet: NPO Bowel Reg: n/a VTE ppx: heparin subQ GI ppx: n/a Pain mgmt: Tylenol, morphine 2 mg IV q6h PRN Code status: full Case discussed with my attending Dr. Dyson, and senior resident, Dr. Maged Kellogg MD PGY-1 Attending Provider Attestation/Addendum I have examined the patient, reviewed labs and imaging findings, discussed the case with the resident(s), and reviewed entered orders. I agree with the plan of care as outlined in this note, with these additional summaries/recommendations: Patient seen at bedside. Her mentation appears more improved compared to yesterday. She follows commands and instructions. She responds to questions appropriately although it is very difficult to discern her speech while on BiPAP. ABGs were trended overnight and hypercapnia relatively resolved. Patient was attempted to be weaned from BiPAP to high flow nasal cannula although was unsuccessful secondary to hypoxia and patient had to be placed back on BiPAP. Will continue to treat underlying cause and wean O2 requirements as tolerated although if no improvement patient may need tracheostomy at some point. Patient's acute hypoxic and hypercapnic respiratory failure is multifactorial secondary to bacterial pneumonia and OHS/MELISSA patient denies a history of COPD. No wheezing has been noted on physical exam to date although difficult secondary to patient's body habitus. Continue BiPAP, breathing treatments, and IV antibiotics. Patient also noted to have diverticulitis and continue IV antibiotics. Follow-up blood cultures. Bowel rest and pain management. Pericardial effusion noted on CT and echocardiogram obtained which showed fibrinogeneous indicating chronic effusion. Cardiology following. Nodular thickening of right adrenal gland noted and patient will need elective MRI outpatient for further workup and management. Patient has severely uncontrolled hypothyroidism likely secondary to medication noncompliance. TSH 59.14 and free T40.17. Insulin sliding scale for diabetes mellitus type 2 with Accu-Cheks. Target blood sugar of 140-180 while hospitalized. Patient updated on the plan and agreement. All questions answered to satisfaction. Please see residents note for additional details and management. Dr. Kiel MD
--- NOTE | 2025-02-27 15:24 | PC.RT ---
called to pt bedside to attempt to take pt off bipap and transition to HFNC. Patient taken off BIPAP at 1030 and placed on HFNC 40L/30% with po2 94%. RT standby throughout the entire time. Pt desast to 73% and could not surpass 73% when 100% fio2. Pt placced back on BIPAP at 1047 on current settings. 1x tx ordered and given. tolerating well. MD and Rn aware.
[2025-02-27] MEDS: RINGERS LACTATED 1000 ML 1,000 ML 50 ML IV (18:18)
[2025-02-28] VITALS (15 sets, daily range): BP systolic 109–150; BP diastolic 54–80; PULSE 55–90; RESP 12–27; TEMP 35.9–36.6; O2SAT 92–98; BMI 67.0; BMI 13.0
[2025-02-28] MEDS: HEPARIN SOD INJ 5000 UNIT/ML VIAL SC ×3 (05:08→21:20)
[2025-02-28] MEDS: PIPER/TAZO 3.375 GM PREMIX 3.375 GM/50 ML BAG IV ×3 (05:09→21:20)
[2025-02-28] MEDS: LEVOTHYROXINE SODIUM 125 MCG, LEVOTHYROXINE SODIUM 50 MCG 175 MCG PO (05:09)
[2025-02-28 06:38] LABS: Basophils # (Auto) 0.0 Thou/mm3 (0.0-0.2); Basophils % (Auto) 0 % (0-2.5); Eosinophils # (Auto) 0.1 Thou/mm3 (0.0-0.5); Eosinophils % (Auto) 1 % (0-10); Hematocrit 35.6 % (36.0-46.0); Hemoglobin 11.4 g/dL (12.0-16.0); Immature Granulocytes Auto 0.04 Thou/mm3 (0.00-0.00); Lymphocytes # (Auto) 1.6 Thou/mm3 (1.0-4.8); Lymphocytes % (Auto) 16 % (10-50); Mean Corpuscular HGB Conc 32.0 g/dl (31.0-37.0); Mean Corpuscular Hemoglobin 32.7 pg (25.0-35.0); Mean Corpuscular Volume 102 fL (80-100); Monocytes # (Auto) 0.5 Thou/mm3 (0.0-0.8); Monocytes % (Auto) 5 % (0-12); Neutrophils # (Auto) 7.7 Thou/mm3 (1.8-7.7); Neutrophils % (Auto) 77 % (37-80); Nucleated Red Blood Cell # 0.00 Thou/mm3 (0.00-0.00); Nucleated Red Blood Cell % 0 /100 WBC (0); Platelet Count 157 Thou/mm3 (140-440); RDW Standard Deviation 53.4 fL (36.4-46.3); Red Blood Count 3.49 Miln/mm3 (4.00-5.20); White Blood Count 9.9 Thou/mm3 (3.6-11.0)
[2025-02-28 06:54] LABS: Anion Gap 9 (7-16); BUN/Creatinine Ratio 11 Ratio (12-20); Blood Urea Nitrogen 11 mg/dL (9-23); Calcium 9.0 mg/dL (8.3-10.6); Carbon Dioxide 33.4 mMol/L (20.0-31.0); Chloride 100 mMol/L (98-107); Creatinine (Component) 1.0 mg/dL (0.6-1.3); Estimated Creatinine Clearance 95.6 mL/min (>60); Glucose 90 mg/dL (74-106); Magnesium 2.3 mg/dL (1.6-2.6); Osmolality,Calculated 282 (275-295); Phosphorous 2.3 mg/dL (2.4-5.1); Potassium 3.8 mMol/L (3.4-5.1); Sodium 142 mMol/L (136-145); eGFR > 60 See Note
[2025-02-28] MEDS: LOSARTAN POTASSIUM 25 MG TABLET PO (08:03)
[2025-02-28] MEDS: ASPIRIN EC 81 MG TABEC PO (08:03)
[2025-02-28 08:54] LABS: Base Excess 9 (-3-3); HCO3 36 mEq/L (20-26); O2 Saturation 96 % (91-98); PCO2 60 mmHg (32.0-48.0); PO2 79 mmHg (83-108); pH, Arterial 7.39 (7.35-7.45)
[2025-02-28 09:00] LABS: Inspired Oxygen, FIO2 35 %; Puncture Site Site Not Noted
[2025-02-28 09:01] LABS: Allen Test Not Performed
--- NOTE | 2025-02-28 09:21 | PC.SS ---
Follow up note: Wean off bipap. Pt is possible d/c to SNF.
--- NOTE | 2025-02-28 09:42 | PC.SS ---
MADDIE has attempted to contact Sally pace by phone# at [phone] (number provided by bedside nurse).
--- NOTE | 2025-02-28 12:04 | PC.SS ---
Patient Lorraine Mcdowell is a 54 Year female admitted for Acute Hypercapnic Respiratory Failure. SS contacted patient's daughter, Sally Mcdowell via phone in order to complete initial and verify demographic information. Patient's daughter, reports she is patient's surrogate decision maker, [phone]. Sally reports that prior to admission patient did not utilize any source of DME to assist with ambulation and was able to complete ADL's independently. Choice of pharmacy is [facility]. SS discussed discharge plan with Patient's daughter and informed her that were recommending SNF. Patient's daughter reports that she would like PT to evaluate patient. Patient's daughter open to HH. No preference in HH agency. SS will follow up with patient's daughter when patient gets closer to discharge she will determine discharge plan. Discharge plan: Home with HH VS SNF Next of kin: Daughter, Sally Patrick [phone]
--- NOTE | 2025-02-28 12:13 | PC.SS ---
SS has sent inquiry to the local SNF using [facility].
--- NOTE | 2025-02-28 12:14 | PC.SS ---
SS follow up note: If patient discharges home with HH, family does not have HH preference. Patient's PCP is Joseluis Mark.
--- NOTE | 2025-02-28 13:51 | PD.RESPRO ---
Documentation for date of: 02/28/25 Subjective Subjective Interval history: Patient seen and assessed in hospital bed off BiPAP and currently on high flow saturating 98+. ABG which was ordered after BiPAP was removed for an hour and a half shows a pCO2 of 60; moreover, since patient is oxygenating well and mental status is improved we will continue on high flow but with low threshold to restarting BiPAP. Will restart BiPAP at next. Spoke with global sales manager who was not concerned about the pericardial effusion; moreover, will order viral panel to rule out viral pericarditis but at this time patient does not have any chest pain. Will continue monitoring and follow-up on PT recommendations regarding placement. Exam Vital Signs Temp Pulse Resp BP Pulse Ox O2 Del Method O2 Flow Rate 97.9 F 7 L 16 109/73 95 BiPAP 30 02/28/25 08:00 02/28/25 11:49 02/28/25 11:49 02/28/25 08:03 02/28/25 11:49 02/28/25 08:00 02/28/25 11:49 FiO2 40 02/28/25 11:49 Narrative Exam General: No acute distress, morbidly obese Eye: PERRL, EOMI HENT: Normocephalic, atraumatic, normal hearing, moist oral mucosa, hoarse voice (chronic) Neck: Supple, non-tender, no JVD, no lymphadenopathy Lungs: Clear to auscultation bilaterally but difficult to hear breath sounds, non-labored respirations, symmetric chest rise, no use of accessory muscles, on HFNC Heart: Normal S1 and S2, no S3 or S4 appreciated. Normal rate and regular rhythm, no murmurs, rubs gallops. 2+ b/l edema Abdomen: Soft, nondistended. TTP of epigastric, LUQ and LLQ Musculoskeletal: Normal range of motion and strength, no tenderness or swelling Skin: Skin is warm, dry, no rashes or lesions. Venous stasis dermatitis b/l LE Neurologic: Alert, awake and oriented x3. CN II-XII grossly intact. Able to follow commands but somnolent. No focal neuro deficits. No signs of meningeal irritation noted. Psychiatric: Cooperative, appropriate mood and affect Objective Labs 03/01/25 04:44 03/01/25 04:44 Labs: Laboratory Results - last 24 hr 02/28/25 02/28/25 05:24 08:42 WBC 9.9 RBC 3.49 L Hgb 11.4 L Hct 35.6 L MCV 102 H MCH 32.7 MCHC 32.0 RDW Std Deviation 53.4 H Plt Count 157 Neut % (Auto) 77 Lymph % (Auto) 16 [place] % (Auto) 5 Eos % (Auto) 1 Baso % (Auto) 0 Neut # (Auto) 7.7 Lymph # (Auto) 1.6 [place] # (Auto) 0.5 Eos # (Auto) 0.1 Baso # (Auto) 0.0 Immature Gran # (Auto) 0.04 H Absolute Nucleated RBC 0.00 Immature Gran % 0 Nucleated RBC % 0 Puncture Site Site Not Noted ABG pH 7.39 ABG pCO2 60 H D ABG pO2 79 L D ABG HCO3 36 H ABG O2 Saturation 96 ABG Base Excess 9 H FiO2 35 Sodium 142 Potassium 3.8 Chloride 100 Carbon Dioxide 33.4 H Anion Gap 9 BUN 11 Creatinine 1.0 Estim Creat Clear Calc 95.6 eGFR > 60 BUN/Creatinine Ratio 11 L Glucose 90 Calculated Osmolality 282 Calcium 9.0 Phosphorus 2.3 L Magnesium 2.3 ABG Interpretation ABG results: 02/26/25 02/26/25 02/26/25 02:53 04:39 06:13 ABG pH 7.07 L* 7.17 L* D 7.10 L* ABG pCO2 116 H* 98 H* D 117 H* D ABG pO2 96 140 H D 102 D ABG HCO3 34 H 36 H 36 H ABG O2 Saturation 95 99 H 96 ABG Base Excess 0 4 H 2 VBG pH VBG pCO2 VBG pO2 VBG Base Excess 02/26/25 02/26/25 02/26/25 08:33 11:37 11:39 ABG pH 7.21 L D 7.25 L ABG pCO2 84 H* D 78 H* ABG pO2 372 H D 223 H D ABG HCO3 33 H 34 H ABG O2 Saturation 100 H 100 H ABG Base Excess 2 4 H VBG pH 7.29 L VBG pCO2 61 H VBG pO2 134 H VBG Base Excess 1 02/26/25 02/26/25 02/27/25 14:20 19:23 02:24 ABG pH 7.29 L 7.30 L 7.38 ABG pCO2 71 H* 71 H* 61 H D ABG pO2 169 H D 191 H D 89 D ABG HCO3 34 H 35 H 36 H ABG O2 Saturation 100 H 100 H 98 ABG Base Excess 5 H 6 H 9 H VBG pH VBG pCO2 VBG pO2 VBG Base Excess 02/27/25 02/28/25 09:26 08:42 ABG pH 7.46 H 7.39 ABG pCO2 49 H D 60 H D ABG pO2 120 H D 79 L D ABG HCO3 35 H 36 H ABG O2 Saturation 100 H 96 ABG Base Excess 10 H 9 H VBG pH VBG pCO2 VBG pO2 VBG Base Excess Quality Measures Quality Measures none Assessment & Plan Assessment Current Active Medications: Generic Name Dose Route Start Last Admin Trade Name Freq PRN Reason Stop Dose Admin Acetaminophen 650 mg 02/26/25 01:25 Acetaminophen 325 Mg Tablet PO 03/28/25 01:24 Q6H PRN Fever >100.3 Acetaminophen 650 mg 02/26/25 01:25 Acetaminophen 325 Mg Tablet PO 03/28/25 01:24 Q6H PRN PAIN SCALE 1-3 (mild Albuterol/Ipratropium 3 ml 02/26/25 11:25 Albuterol/Ipratropium (Duoneb) Rt Christine 3 Ml Nebu INH 03/28/25 11:24 Q2HR PRN SHORTNESS OF BREATH OR WHEEZE Amlodipine Besylate 10 mg 02/26/25 09:00 02/28/25 08:03 Amlodipine Besylate 5 Mg Tablet PO 03/28/25 08:59 10 mg QDAY ÁNGEL Administration Artificial Tears 0 drop 02/27/25 13:36 Artificial Tears 225 Drop/15 Ml Btl BOTH EYES 03/29/25 13:35 PRN PRN TO KEEP EYES MOIST Aspirin 81 mg 02/26/25 09:00 02/28/25 08:03 Aspirin Ec 81 Mg Tabec PO 03/28/25 08:59 81 mg QDAY ÁNGEL Administration Atorvastatin Calcium 40 mg 02/26/25 21:00 02/27/25 21:42 Atorvastatin Calcium 20 Mg Tablet PO 03/28/25 20:59 Not Given HS ÁNGEL Dextrose 50 ml 02/26/25 05:51 Dextrose 50%-Water Inj 50 Ml Syringe IV 03/28/25 05:50 Q15MIN PRN BG <50 OR BG <70 & pt unresponsive Dextrose 25 ml 02/26/25 05:51 02/26/25 13:11 Dextrose 50%-Water Inj 50 Ml Syringe IV 03/28/25 05:50 25 ml Q15MIN PRN Administration BG 50-70 responsive npo pt Glucagon 1 mg 02/26/25 05:51 Glucagon Inj 1 Mg Vial IM Q15MIN PRN BG <70, and no IV access Heparin Sodium (Porcine) 5,000 unit 02/26/25 06:00 02/28/25 05:08 Heparin Sod Inj 5000 Unit/Ml Vial SC 03/12/25 05:59 5,000 unit Q8HR ÁNGEL Administration Piperacillin/Tazobactam/Dextrose 3.375 gm in 50 mls @ 12.5 mls/hr 02/26/25 14:00 02/28/25 05:09 Zosyn IV 03/05/25 13:59 12.5 mls/hr Q8HR ÁNGEL Administration Protocol Insulin Human Lispro 0 unit 02/26/25 06:00 02/28/25 12:13 Insulin Lispro (Admelog) 1 Unit/0.01 Ml Unit SC 03/28/25 05:59 Not Given Q6H ÁNGEL Protocol Labetalol HCl 10 mg 02/26/25 08:49 Labetalol Inj 5 Mg/Ml Vial 20 Ml IVP 03/28/25 08:48 Q4H PRN sbp >160 Levothyroxine Sodium 125 mcg/ 175 mcg 02/27/25 06:00 02/28/25 05:09 Levothyroxine Sodium 50 mcg PO 03/29/25 05:59 175 mcg ACBR ÁNGEL Administration Losartan Potassium 25 mg 02/26/25 09:00 02/28/25 08:03 Losartan Potassium 25 Mg Tablet PO 03/28/25 08:59 25 mg QDAY ÁNGEL Administration Morphine Sulfate 2 mg 02/26/25 01:30 02/26/25 01:53 Morphine Sulf Inj 4 Mg/Ml Vial IVP 03/03/25 01:29 2 mg Q6HR PRN Administration pain 4-7 Ondansetron HCl 4 mg 02/26/25 01:25 02/26/25 01:54 Ondansetron Inj 2 Mg/Ml Inj 2 Ml IVP 03/28/25 01:24 4 mg Q6H PRN Administration NAUSEA OR VOMITING Protocol Plan 54-year-old female with past medical history of morbid obesity, hyperlipidemia, hypertension, T2DM, cholecystectomy, VA, hypothyroidism, MRSA + periorbital cellulitis, anemia who presented to the ED on 02/25 with epigastric and left upper and lower quadrant abdominal pain x 3 days. Admitted for acute hypercapneic respiratory failure, diverticulitis. #Acute hypoxic hypercapnic respiratory failure Respiratory failure likely secondary to obesity hypoventilation syndrome due to MELISSA The patient's mentation has significantly improved since admission, likely in response to the initiation of BiPAP therapy. There is a marked improvement in hypercapnia as well. Most recent ABG shows pH 7.46, pCO2 49, pO2 120 Patient has been having air leaks with the BiPAP Patient was trialed off BiPAP however oxygenation dropped to the 70s so BiPAP was back on Plan: - Weaning off BiPAP, on high flow - Ambulate 3 times daily, incentive spirometry - Pulm consulted, Dr. Guerin, appreciate recs - NPO due to encephalopathy. #Diverticulosis #Sigmoid diverticulitis Patient is afebrile. Lactic acid improved from 1.3 to 0.7, and lipase is within normal limits. CT A/P without contrast showed colonic diverticulosis with abnormal small bowel loops, wall thickening, and inflammatory changes, suggesting acute diverticulitis of the sigmoid colon. CT A/P also revealed hepatocellular disease with irregular liver contour, a 19 mm uterine fundal mass, and mild nodular thickening of the adrenal glands. CTA A/P confirmed diverticulosis of the colon, thickening of the cecum and ascending colon, and inflammatory changes. No evidence of bowel obstruction, free fluid, free air, or abscess. Right adrenal nodule 2.2 cm noted. Given ceftriaxone 1 g IV, morphine 4 mg IV, Zofran 4 mg IV, 500 mL NS, metronidazole 500 mg IV. Plan: - Continue Zosyn 3.375 every 8 hours - Pending blood cx #Pericardial effusion, chronic #c/f pericarditis Pt denies chest pain, afebrile, hypertensive Seen on CTA a/p. No aortic dissection seen on CTA prelim read DDX: post-VA, hypothyroidism, viral, malignancy, inflammatory/autoimmune Echo done 02/26 showed pericardium appears normal. There is small to moderate circumferential pericardial effusion. No evidence of cardiac tamponade. Fribrogenous exudate on LV and RV velez indicating chronic effusion. Plan: - Cardiology consulted, Dr. Page - No need for pericardiocentesis at this time as there is no concern for tamponade - Consider NSAID therapy if patient develops chest pain - COVID and influenza AMB ordered to rule out viral pericarditis #Hypertension, chronic #Hypertensive urgency - resolved 188/105 (HR 88) --> 134/93, HR 69 Plan: - Amlodipine 10 mg daily (listed as home med) - Losartan 25 mg daily (listed as home med) - Holding carvedilol #T2DM A1c 6.8 Plan: - SSI #Hypothyroidism TSH 59.14, T4 0.17 Plan: - Levothyroxine 175 mg daily #Hyperlipidemia #Hx of VA - Continue Aspirin 81 mg daily, atorvastatin 40 mg daily (listed as home med) Health Maintenance: Dispo: Admit to tele for w/u acute hypercapneic respiratory failure, diverticulitis Diet: NPO Bowel Reg: n/a VTE ppx: heparin subQ GI ppx: n/a Pain mgmt: Tylenol, morphine 2 mg IV q6h PRN Code status: Full Patient seen and assessed with attending Dr. Kiel Lynne DO PGY-2 Internal Medicine - GME Attending Provider Attestation/Addendum I have examined the patient, reviewed labs and imaging findings, discussed the case with the resident(s), and reviewed entered orders. I agree with the plan of care as outlined in this note, with these additional summaries/recommendations: Patient seen at bedside. No acute overnight events. Patient was weaned from BiPAP this morning to high flow nasal cannula and satting between 94 to 96%. She is responding to questions appropriately and judgment intact. Patient requests food and we will start diet. Will continue to treat underlying cause and wean O2 requirements as tolerated. Patient's acute hypoxic and hypercapnic respiratory failure is multifactorial secondary to bacterial pneumonia and OHS/MELISSA patient denies a history of COPD. No wheezing has been noted on physical exam to date although difficult secondary to patient's body habitus. Continue HFNC, breathing treatments, and IV antibiotics. Patient also noted to have diverticulitis and continue IV antibiotics. Follow-up blood cultures. Bowel rest and pain management. Pericardial effusion noted on CT and echocardiogram obtained which showed fibrinogeneous indicating chronic effusion. Cardiology following and recommends outpatient follow-up. Nodular thickening of right adrenal gland noted and patient will need elective MRI outpatient for further workup and management. Patient has severely uncontrolled hypothyroidism likely secondary to medication noncompliance. TSH 59.14 and free T40.17. Insulin sliding scale for diabetes mellitus type 2 with Accu-Cheks. Target blood sugar of 140-180 while hospitalized. Patient updated on the plan and agreement. All questions answered to satisfaction. Please see residents note for additional details and management. Dr. Kiel MD
[2025-02-28 15:00] LABS: COVID-19 Antigen (In-House) Negative (Negative)
[2025-02-28 15:15] LABS: Influenza A Ag Negative; Influenza B Ag Negative
--- NOTE | 2025-02-28 16:16 | ESPR_ITS ---
Documentation for date of: 02/28/25 Subjective Subjective Interval history: no chest pain EKG no acute changes troponin negative Exam Vital Signs Temp Pulse Resp BP Pulse Ox O2 Del Method O2 Flow Rate 97.0 F 84 19 150/80 H 96 High Flow Nasal Cannula 30 02/28/25 12:00 02/28/25 14:47 02/28/25 14:47 02/28/25 12:00 02/28/25 14:47 02/28/25 12:00 02/28/25 14:47 FiO2 40 02/28/25 14:47 Routine HEENT Exam Head: Present normocephalic and atraumatic Eye: Present EOMI and PERRL ENT: Present mucous membranes moist Routine Neck Exam Neck: Present supple and trachea midline Routine Respiratory Exam Respiratory: Present chest non-tender, lungs clear, normal breath sounds and no resp distress Routine Cardiovascular Exam Cardiovascular: Present RRR Routine Abdominal Exam Abdominal: Present soft and normoactive bowel sounds Routine Extremities Exam Extremities: Present full ROM Routine Skin Exam Skin: Present intact, dry and warm Routine Neurological Exam Neurological: Present alert, oriented X3 and CN II-XII intact Routine Psychiatric Exam Psychiatric: Present normal affect and normal thought process Objective Labs 02/28/25 05:24 02/28/25 05:24 Labs: Laboratory Results - last 24 hr 02/28/25 02/28/25 02/28/25 05:24 08:42 14:27 WBC 9.9 RBC 3.49 L Hgb 11.4 L Hct 35.6 L MCV 102 H MCH 32.7 MCHC 32.0 RDW Std Deviation 53.4 H Plt Count 157 Neut % (Auto) 77 Lymph % (Auto) 16 [place] % (Auto) 5 Eos % (Auto) 1 Baso % (Auto) 0 Neut # (Auto) 7.7 Lymph # (Auto) 1.6 [place] # (Auto) 0.5 Eos # (Auto) 0.1 Baso # (Auto) 0.0 Immature Gran # (Auto) 0.04 H Absolute Nucleated RBC 0.00 Immature Gran % 0 Nucleated RBC % 0 Puncture Site Site Not Noted ABG pH 7.39 ABG pCO2 60 H D ABG pO2 79 L D ABG HCO3 36 H ABG O2 Saturation 96 ABG Base Excess 9 H FiO2 35 Sodium 142 Potassium 3.8 Chloride 100 Carbon Dioxide 33.4 H Anion Gap 9 BUN 11 Creatinine 1.0 Estim Creat Clear Calc 95.6 eGFR > 60 BUN/Creatinine Ratio 11 L Glucose 90 Calculated Osmolality 282 Calcium 9.0 Phosphorus 2.3 L Magnesium 2.3 Influenza A (Rapid) Negative Influenza B (Rapid) Negative SARS-CoV-2 Ag (Rapid) Negative ABG Interpretation ABG results: 02/26/25 02/26/25 02/26/25 02:53 04:39 06:13 ABG pH 7.07 L* 7.17 L* D 7.10 L* ABG pCO2 116 H* 98 H* D 117 H* D ABG pO2 96 140 H D 102 D ABG HCO3 34 H 36 H 36 H ABG O2 Saturation 95 99 H 96 ABG Base Excess 0 4 H 2 VBG pH VBG pCO2 VBG pO2 VBG Base Excess 02/26/25 02/26/25 02/26/25 08:33 11:37 11:39 ABG pH 7.21 L D 7.25 L ABG pCO2 84 H* D 78 H* ABG pO2 372 H D 223 H D ABG HCO3 33 H 34 H ABG O2 Saturation 100 H 100 H ABG Base Excess 2 4 H VBG pH 7.29 L VBG pCO2 61 H VBG pO2 134 H VBG Base Excess 1 02/26/25 02/26/25 02/27/25 14:20 19:23 02:24 ABG pH 7.29 L 7.30 L 7.38 ABG pCO2 71 H* 71 H* 61 H D ABG pO2 169 H D 191 H D 89 D ABG HCO3 34 H 35 H 36 H ABG O2 Saturation 100 H 100 H 98 ABG Base Excess 5 H 6 H 9 H VBG pH VBG pCO2 VBG pO2 VBG Base Excess 02/27/25 02/28/25 09:26 08:42 ABG pH 7.46 H 7.39 ABG pCO2 49 H D 60 H D ABG pO2 120 H D 79 L D ABG HCO3 35 H 36 H ABG O2 Saturation 100 H 96 ABG Base Excess 10 H 9 H VBG pH VBG pCO2 VBG pO2 VBG Base Excess Assessment & Plan A&P Narrative continue current management Time Spent With Patient Time: Total time spent is greater than 50% in coordination of care (as documented) at patient's floor/unit and/or counseling patient:
[2025-02-28] MEDS: INSULIN LISPRO (AdmeLOG) 1 UNIT/0.01 ML UNIT SC (17:32)
[2025-02-28] MEDS: ATORVASTATIN CALCIUM 20 MG TABLET 40 MG PO (20:13)
[2025-03-01] VITALS (16 sets, daily range): BP systolic 116–160; BP diastolic 66–94; PULSE 63–98; RESP 12–28; TEMP 36–36.5; O2SAT 94–98; BMI 62.8
[2025-03-01] MEDS: HEPARIN SOD INJ 5000 UNIT/ML VIAL SC (05:10)
[2025-03-01] MEDS: PIPER/TAZO 3.375 GM PREMIX 3.375 GM/50 ML BAG IV ×3 (05:10→21:11)
[2025-03-01] MEDS: LEVOTHYROXINE SODIUM 125 MCG, LEVOTHYROXINE SODIUM 50 MCG 175 MCG PO (05:10)
[2025-03-01 05:22] LABS: Basophils # (Auto) 0.0 Thou/mm3 (0.0-0.2); Basophils % (Auto) 0 % (0-2.5); Eosinophils # (Auto) 0.2 Thou/mm3 (0.0-0.5); Eosinophils % (Auto) 2 % (0-10); Hematocrit 35.5 % (36.0-46.0); Hemoglobin 11.5 g/dL (12.0-16.0); Immature Granulocytes Auto 0.06 Thou/mm3 (0.00-0.00); Lymphocytes # (Auto) 1.7 Thou/mm3 (1.0-4.8); Lymphocytes % (Auto) 16 % (10-50); Mean Corpuscular HGB Conc 32.4 g/dl (31.0-37.0); Mean Corpuscular Hemoglobin 32.5 pg (25.0-35.0); Mean Corpuscular Volume 100 fL (80-100); Monocytes # (Auto) 0.4 Thou/mm3 (0.0-0.8); Monocytes % (Auto) 4 % (0-12); Neutrophils # (Auto) 8.5 Thou/mm3 (1.8-7.7); Neutrophils % (Auto) 78 % (37-80); Nucleated Red Blood Cell # 0.00 Thou/mm3 (0.00-0.00); Nucleated Red Blood Cell % 0 /100 WBC (0); Platelet Count 179 Thou/mm3 (140-440); RDW Standard Deviation 51.0 fL (36.4-46.3); Red Blood Count 3.54 Miln/mm3 (4.00-5.20); White Blood Count 10.8 Thou/mm3 (3.6-11.0)
[2025-03-01 06:02] LABS: Anion Gap 8 (7-16); BUN/Creatinine Ratio 12 Ratio (12-20); Blood Urea Nitrogen 12 mg/dL (9-23); Calcium 9.1 mg/dL (8.3-10.6); Carbon Dioxide 32.6 mMol/L (20.0-31.0); Chloride 99 mMol/L (98-107); Creatinine (Component) 1.0 mg/dL (0.6-1.3); Estimated Creatinine Clearance 95.6 mL/min (>60); Glucose 120 mg/dL (74-106); Magnesium 2.1 mg/dL (1.6-2.6); Osmolality,Calculated 280 (275-295); Potassium 3.5 mMol/L (3.4-5.1); Sodium 140 mMol/L (136-145); eGFR > 60 See Note
[2025-03-01 06:04] LABS: Phosphorous 2.6 mg/dL (2.4-5.1)
[2025-03-01] MEDS: LOSARTAN POTASSIUM 25 MG TABLET PO (08:54)
[2025-03-01] MEDS: POTASSIUM CHL 10 mEq IVPB 10 MEQ/100 ML BAG 100 MEQ IV ×3 (08:54→13:55)
[2025-03-01] MEDS: ASPIRIN EC 81 MG TABEC PO (08:54)
--- NOTE | 2025-03-01 12:37 | ESPR_ITS ---
<Statement entered by Bright Clark MD - 03/01/25 17:47> Patient was seen and examined at bedside. I agree on the assessment and plan on this note as documented by resident Nilsa Hercules DO PGY1. 54-year-old female with past medical history of supersuper-obesity, BMI 62.9, class IV, hyperlipidemia, hypertension, type 2 diabetes mellitus, cholecystectomy, OR, hypothyroidism, periorbital cellulitis and anemia presented to [facility] ED on 02/25 with epigastric and abdominal pain, admitted for acute hypercapnic respiratory failure and diverticulitis management. Patient continues to require high levels of supplemental oxygen, currently on high flow nasal cannula, will continue BiPAP as needed while sleeping, difficult for patient to mobilize due to morbid obesity, had patient sit at the edge of the bed for 30 minutes today, directly supervised O2 saturation throughout, stable. Will continue IV Zosyn for diverticulitis, blood cultures negative. Patient has severe hypothyroidism, TSH 59.14, T40.17, was prescribed levothyroxine 300 mcg in the past, noncompliant with medication outpatient, will continue levothyroxine 175 mcg for now. Needs close outpatient follow-up with titration of medication to be adequate. Component of chronic pericardial effusion can be related to history of viral infection ~COVID versus hypothyroidism, cardiology is following. Adjusted DVT prophylaxis to BMI, Lovenox 60 mg subcutaneous twice daily. Will continue antihypertensive medication, atorvastatin and aspirin. Pulmonology service consulted today, appreciate recommendations. Patient will likely need close outpatient follow- up, outpatient sleep study, counseled patient on excessive calorie consumption and management of obesity. Case discussed with attending Dr. Edward Clark MD PGY-2 Documentation for date of: 03/01/25 Subjective Subjective Interval history: Patient seen and assessed in hospital bed off BiPAP and currently on high flow saturating 98+. Patient was on BiPAP overnight since 8 PM yesterday and satting 95%. Since patient is oxygenating well and mental status is improved we will continue on high flow but with low threshold to restarting BiPAP. Patient was accompanied by and son and grandchildren, and explained that the abdominal infection/diverticulitis is well taken care of and the chronic carbon dioxide retention is likely secondary to OHS, MELISSA, and possibly exacerbated by the dose of Versed the patient received before. Consulted on weight loss, and emphasized outpatient endocrine follow-up. Related to imaging finding of pericardial effusion, patient denies chest pain, and cardiology recommends symptomatic management. Viral panel came back negative. PT recommends homeheatlh PT upon dc to home for home safety (decrease risk of fall, increase MM strength, and improve mobility). Pt moved to be sitting on side of bed for half an hour. Chose a smaller mouthpiece for the BiPAP as the previous one was leaking air. Exam Vital Signs Temp Pulse Resp BP Pulse Ox O2 Del Method O2 Flow Rate 97.5 F 78 20 116/79 96 High Flow Nasal Cannula 30 03/01/25 08:00 03/01/25 12:36 03/01/25 12:36 03/01/25 08:54 03/01/25 12:36 03/01/25 08:00 03/01/25 12:36 FiO2 40 03/01/25 12:36 Narrative Exam General: No acute distress, morbidly obese Eye: PERRL, EOMI HENT: Normocephalic, atraumatic, normal hearing, moist oral mucosa, hoarse voice (chronic) Neck: Supple, non-tender, no JVD, no lymphadenopathy Lungs: Clear to auscultation bilaterally but difficult to hear breath sounds, non-labored respirations, symmetric chest rise, no use of accessory muscles, on HFNC Heart: Normal S1 and S2, no S3 or S4 appreciated. Normal rate and regular rhythm, no murmurs, rubs gallops. 2+ b/l edema Abdomen: Soft, nondistended. TTP of epigastric, LUQ and LLQ Musculoskeletal: Normal range of motion and strength, no tenderness or swelling Skin: Skin is warm, dry, no rashes or lesions. Venous stasis dermatitis b/l LE Neurologic: Alert, awake and oriented x3. CN II-XII grossly intact. Able to follow commands but somnolent. No focal neuro deficits. No signs of meningeal irritation noted. Psychiatric: Cooperative, appropriate mood and affect Objective Labs 03/02/25 04:59 03/02/25 04:59 Labs: Laboratory Results - last 24 hr 02/28/25 03/01/25 14:27 04:44 WBC 10.8 RBC 3.54 L Hgb 11.5 L Hct 35.5 L MCV 100 MCH 32.5 MCHC 32.4 RDW Std Deviation 51.0 H Plt Count 179 Neut % (Auto) 78 Lymph % (Auto) 16 [place] % (Auto) 4 Eos % (Auto) 2 Baso % (Auto) 0 Neut # (Auto) 8.5 H Lymph # (Auto) 1.7 [place] # (Auto) 0.4 Eos # (Auto) 0.2 Baso # (Auto) 0.0 Immature Gran # (Auto) 0.06 H Absolute Nucleated RBC 0.00 Immature Gran % 1 H Nucleated RBC % 0 Sodium 140 Potassium 3.5 Chloride 99 Carbon Dioxide 32.6 H Anion Gap 8 BUN 12 Creatinine 1.0 Estim Creat Clear Calc 95.6 eGFR > 60 BUN/Creatinine Ratio 12 Glucose 120 H Calculated Osmolality 280 Calcium 9.1 Phosphorus 2.6 Magnesium 2.1 Influenza A (Rapid) Negative Influenza B (Rapid) Negative SARS-CoV-2 Ag (Rapid) Negative ABG Interpretation ABG results: 02/26/25 02/26/25 02/26/25 02:53 04:39 06:13 ABG pH 7.07 L* 7.17 L* D 7.10 L* ABG pCO2 116 H* 98 H* D 117 H* D ABG pO2 96 140 H D 102 D ABG HCO3 34 H 36 H 36 H ABG O2 Saturation 95 99 H 96 ABG Base Excess 0 4 H 2 VBG pH VBG pCO2 VBG pO2 VBG Base Excess 02/26/25 02/26/25 02/26/25 08:33 11:37 11:39 ABG pH 7.21 L D 7.25 L ABG pCO2 84 H* D 78 H* ABG pO2 372 H D 223 H D ABG HCO3 33 H 34 H ABG O2 Saturation 100 H 100 H ABG Base Excess 2 4 H VBG pH 7.29 L VBG pCO2 61 H VBG pO2 134 H VBG Base Excess 1 02/26/25 02/26/25 02/27/25 14:20 19:23 02:24 ABG pH 7.29 L 7.30 L 7.38 ABG pCO2 71 H* 71 H* 61 H D ABG pO2 169 H D 191 H D 89 D ABG HCO3 34 H 35 H 36 H ABG O2 Saturation 100 H 100 H 98 ABG Base Excess 5 H 6 H 9 H VBG pH VBG pCO2 VBG pO2 VBG Base Excess 02/27/25 02/28/25 09:26 08:42 ABG pH 7.46 H 7.39 ABG pCO2 49 H D 60 H D ABG pO2 120 H D 79 L D ABG HCO3 35 H 36 H ABG O2 Saturation 100 H 96 ABG Base Excess 10 H 9 H VBG pH VBG pCO2 VBG pO2 VBG Base Excess Quality Measures Quality Measures VTE prophylaxis Assessment & Plan Assessment Current Active Medications: Generic Name Dose Route Start Last Admin Trade Name Freq PRN Reason Stop Dose Admin Acetaminophen 650 mg 02/26/25 01:25 Acetaminophen 325 Mg Tablet PO 03/28/25 01:24 Q6H PRN Fever >100.3 Acetaminophen 650 mg 02/26/25 01:25 Acetaminophen 325 Mg Tablet PO 03/28/25 01:24 Q6H PRN PAIN SCALE 1-3 (mild Albuterol/Ipratropium 3 ml 02/26/25 11:25 Albuterol/Ipratropium (Duoneb) Rt Christine 3 Ml Nebu INH 03/28/25 11:24 Q2HR PRN SHORTNESS OF BREATH OR WHEEZE Amlodipine Besylate 10 mg 02/26/25 09:00 03/01/25 08:54 Amlodipine Besylate 5 Mg Tablet PO 03/28/25 08:59 10 mg QDAY ÁNGEL Administration Artificial Tears 0 drop 02/27/25 13:36 Artificial Tears 225 Drop/15 Ml Btl BOTH EYES 03/29/25 13:35 PRN PRN TO KEEP EYES MOIST Aspirin 81 mg 02/26/25 09:00 03/01/25 08:54 Aspirin Ec 81 Mg Tabec PO 03/28/25 08:59 81 mg QDAY ÁNGEL Administration Atorvastatin Calcium 40 mg 02/26/25 21:00 02/28/25 20:13 Atorvastatin Calcium 20 Mg Tablet PO 03/28/25 20:59 40 mg HS ÁNGEL Administration Dextrose 50 ml 02/26/25 05:51 Dextrose 50%-Water Inj 50 Ml Syringe IV 03/28/25 05:50 Q15MIN PRN BG <50 OR BG <70 & pt unresponsive Dextrose 25 ml 02/26/25 05:51 02/26/25 13:11 Dextrose 50%-Water Inj 50 Ml Syringe IV 03/28/25 05:50 25 ml Q15MIN PRN Administration BG 50-70 responsive npo pt Enoxaparin Sodium 60 mg 03/01/25 21:00 Enoxaparin Sod Inj 60 Mg/0.6 Ml Syringe SC 03/15/25 20:59 BID ÁNGEL Glucagon 1 mg 02/26/25 05:51 Glucagon Inj 1 Mg Vial IM Q15MIN PRN BG <70, and no IV access Piperacillin/Tazobactam/Dextrose 3.375 gm in 50 mls @ 12.5 mls/hr 02/26/25 14:00 03/01/25 05:10 Zosyn IV 03/05/25 13:59 12.5 mls/hr Q8HR ÁNGEL Administration Protocol Insulin Human Lispro 0 unit 02/28/25 17:00 03/01/25 11:12 Insulin Lispro (Admelog) 1 Unit/0.01 Ml Unit SC 03/30/25 16:59 Not Given ACHS ÁNGEL Protocol Labetalol HCl 10 mg 02/26/25 08:49 Labetalol Inj 5 Mg/Ml Vial 20 Ml IVP 03/28/25 08:48 Q4H PRN sbp >160 Levothyroxine Sodium 125 mcg/ 175 mcg 02/27/25 06:00 03/01/25 05:10 Levothyroxine Sodium 50 mcg PO 03/29/25 05:59 175 mcg ACBR ÁNGEL Administration Losartan Potassium 25 mg 02/26/25 09:00 03/01/25 08:54 Losartan Potassium 25 Mg Tablet PO 03/28/25 08:59 25 mg QDAY ÁNGEL Administration Ondansetron HCl 4 mg 02/26/25 01:25 02/26/25 01:54 Ondansetron Inj 2 Mg/Ml Inj 2 Ml IVP 03/28/25 01:24 4 mg Q6H PRN Administration NAUSEA OR VOMITING Protocol Plan 54-year-old female with past medical history of morbid obesity, hyperlipidemia, hypertension, T2DM, cholecystectomy, OR, hypothyroidism, MRSA + periorbital cellulitis, anemia who presented to the ED on 02/25 with epigastric and left upper and lower quadrant abdominal pain x 3 days. Admitted for acute hypercapneic respiratory failure, diverticulitis. 03/01 workup of pericarditis with panels for influenza A, B and COVID came back negative.? In the setting of absent chest pain, and no acute changes on EKG, cardiology recommended symptomatic management only.? Patient continued to be on BiPAP when sleeping/nights for low oxygen (79) and elevated CO2 (60) and high flow NC 30 L/min while awake/days. PT recommended homeheatlh PT upon dc to home for home safety (decrease risk of fall, increase MM strength, and improve mobility). #Acute hypoxic hypercapnic respiratory failure Respiratory failure likely secondary to obesity hypoventilation syndrome due to MELISSA The patient's mentation has significantly improved since admission, likely in response to the initiation of BiPAP therapy. There is a marked improvement in hypercapnia as well. Most recent ABG shows pH 7.46, pCO2 49, pO2 120 Patient was trialed off BiPAP however oxygenation dropped to the 70s so BiPAP was back on nights/sleep time, and HF NC at other times. Plan: - Weaning off BiPAP, on high flow - Ambulate 3 times daily, incentive spirometry - Pulm consulted, Dr. Wolff, appreciate recs - NPO due to encephalopathy. - encouraged incentive spirometry #Diverticulosis #Sigmoid diverticulitis Patient is afebrile. Lactic acid improved from 1.3 to 0.7, and lipase is within normal limits. CT A/P without contrast showed colonic diverticulosis with abnormal small bowel loops, wall thickening, and inflammatory changes, suggesting acute diverticulitis of the sigmoid colon. CT A/P also revealed hepatocellular disease with irregular liver contour, a 19 mm uterine fundal mass, and mild nodular thickening of the adrenal glands. CTA A/P confirmed diverticulosis of the colon, thickening of the cecum and ascending colon, and inflammatory changes. No evidence of bowel obstruction, free fluid, free air, or abscess. Right adrenal nodule 2.2 cm noted. Given ceftriaxone 1 g IV, morphine 4 mg IV, Zofran 4 mg IV, 500 mL NS, metronidazole 500 mg IV. Blood ctx were negative at 48h point in 2/2 bottles. Plan: - Continue Zosyn 3.375 every 8 hours #Pericardial effusion, chronic #c/f pericarditis Pt denies chest pain, afebrile, hypertensive Seen on CTA a/p. No aortic dissection seen on CTA prelim read DDX: post-OR, hypothyroidism, viral, malignancy, inflammatory/autoimmune Echo done 02/26 showed pericardium appears normal. There is small to moderate circumferential pericardial effusion. No evidence of cardiac tamponade. Fribrogenous exudate on LV and RV velez indicating chronic effusion. Viral panel with influenza A, B, and COVID came back negative. Plan: - Cardiology consulted, Dr. Page - No need for pericardiocentesis at this time as there is no concern for tamponade - Consider NSAID therapy if patient develops chest pain #Hypertension, chronic #Hypertensive urgency - resolved 188/105 (HR 88) --> 134/93, HR 69 Plan: - Amlodipine 10 mg daily (listed as home med) - Losartan 25 mg daily (listed as home med) - Holding carvedilol #T2DM A1c 6.8 Plan: - SSI #Hypothyroidism TSH 59.14, T4 0.17 Plan: - Levothyroxine 175 mg daily #Hyperlipidemia #Hx of OR - Continue Aspirin 81 mg daily, atorvastatin 40 mg daily (listed as home med) Health Maintenance: Dispo: Admit to tele for w/u acute hypercapneic respiratory failure, diverticulitis Diet: NPO Bowel Reg: n/a VTE ppx: heparin subQ GI ppx: n/a Pain mgmt: Tylenol, morphine 2 mg IV q6h PRN Code status: Full This case was discussed with my attending physician, Dr. Dyson, and senior resident, Dr Clark. Nilsa Hercules, DO PGY I Attending Provider Attestation/Addendum I have examined the patient, reviewed labs and imaging findings, discussed the case with the resident(s), and reviewed entered orders. I agree with the plan of care as outlined in this note, with these additional summaries/recommendations: Patient and family seen at bedside. No acute overnight events. Patient was placed on BiPAP again overnight and she reports improved compliance with facemask. She overall reports she is starting to feel better. Patient was unable to be weaned from BiPAP for approximately 24 hours but was able to be transitioned to high flow nasal cannula yesterday. Will continue BiPAP as needed for when patient is sleeping. Patient will eventually need outpatient sleep study and pulmonary function testing. We will consult in-house pulmonology, recommendations appreciated. Patient's acute hypoxic and hypercapnic respiratory failure is multifactorial secondary to bacterial pneumonia and likely undiagnosed OHS/MELISSA. patient denies a history of COPD. No wheezing has been noted on physical exam to date although difficult secondary to patient's body habitus. Continue HFNC, breathing treatments, and IV antibiotics. Patient also noted to have diverticulitis and continue IV antibiotics. Blood cultures negative to date. Bowel rest and pain management. Pericardial effusion noted on CT and echocardiogram obtained which showed fibrinogeneous indicating chronic effusion. Cardiology following and recommends outpatient follow-up. Nodular thickening of right adrenal gland noted and patient will need elective MRI outpatient for further workup and management. Patient has severely uncontrolled hypothyroidism likely secondary to medication noncompliance. TSH 59.14 and free T4 0.17. Continue levothyroxine. Insulin sliding scale for diabetes mellitus type 2 with Accu-Cheks. Target blood sugar of 140-180 while hospitalized. Patient updated on the plan and agreement. All questions answered to satisfaction. Please see residents note for additional details and management. Dr. Kiel MD
[2025-03-01] MEDS: ATORVASTATIN CALCIUM 20 MG TABLET 40 MG PO (20:06)
[2025-03-01] MEDS: ENOXAPARIN SOD INJ 60 MG/0.6 ML SYRINGE SC (21:11)
[2025-03-02] VITALS (17 sets, daily range): BP systolic 136–162; BP diastolic 79–90; PULSE 52–88; RESP 12–99; TEMP 36.1–37; O2SAT 93–99; BMI 63.0
[2025-03-02] MEDS: PIPER/TAZO 3.375 GM PREMIX 3.375 GM/50 ML BAG IV ×3 (05:11→21:19)
[2025-03-02] MEDS: LEVOTHYROXINE SODIUM 125 MCG, LEVOTHYROXINE SODIUM 50 MCG 175 MCG PO (05:12)
[2025-03-02 05:41] LABS: Basophils # (Auto) 0.1 Thou/mm3 (0.0-0.2); Basophils % (Auto) 1 % (0-2.5); Eosinophils # (Auto) 0.2 Thou/mm3 (0.0-0.5); Eosinophils % (Auto) 2 % (0-10); Hematocrit 39.2 % (36.0-46.0); Hemoglobin 13.0 g/dL (12.0-16.0); Immature Granulocytes Auto 0.07 Thou/mm3 (0.00-0.00); Lymphocytes # (Auto) 2.1 Thou/mm3 (1.0-4.8); Lymphocytes % (Auto) 19 % (10-50); Mean Corpuscular HGB Conc 33.2 g/dl (31.0-37.0); Mean Corpuscular Hemoglobin 33.1 pg (25.0-35.0); Mean Corpuscular Volume 100 fL (80-100); Monocytes # (Auto) 0.5 Thou/mm3 (0.0-0.8); Monocytes % (Auto) 4 % (0-12); Neutrophils # (Auto) 8.4 Thou/mm3 (1.8-7.7); Neutrophils % (Auto) 74 % (37-80); Nucleated Red Blood Cell # 0.00 Thou/mm3 (0.00-0.00); Nucleated Red Blood Cell % 0 /100 WBC (0); Platelet Count 192 Thou/mm3 (140-440); RDW Standard Deviation 50.7 fL (36.4-46.3); Red Blood Count 3.93 Miln/mm3 (4.00-5.20); White Blood Count 11.3 Thou/mm3 (3.6-11.0)
[2025-03-02 06:08] LABS: Anion Gap 9 (7-16); BUN/Creatinine Ratio 8 Ratio (12-20); Blood Urea Nitrogen 8 mg/dL (9-23); Calcium 9.3 mg/dL (8.3-10.6); Carbon Dioxide 32.3 mMol/L (20.0-31.0); Chloride 99 mMol/L (98-107); Creatinine (Component) 1.0 mg/dL (0.6-1.3); Estimated Creatinine Clearance 91.5 mL/min (>60); Glucose 123 mg/dL (74-106); Magnesium 2.0 mg/dL (1.6-2.6); Osmolality,Calculated 278 (275-295); Phosphorous 2.7 mg/dL (2.4-5.1); Potassium 3.6 mMol/L (3.4-5.1); Sodium 140 mMol/L (136-145); eGFR > 60 See Note
[2025-03-02] MEDS: ENOXAPARIN SOD INJ 60 MG/0.6 ML SYRINGE SC ×2 (08:51→20:16)
[2025-03-02] MEDS: LOSARTAN POTASSIUM 25 MG TABLET PO (08:51)
[2025-03-02] MEDS: ASPIRIN EC 81 MG TABEC PO (08:52)
--- NOTE | 2025-03-02 09:49 | PC.SS ---
SS update: patient still on high level oxygen, pending Dr. Daigle recommendation.
--- NOTE | 2025-03-02 14:05 | PD.PUCONS ---
HPI Pulmonology Consult Data of Consult Requesting Physician: Edward Dyson MD Primary Care Provider: Physician No Primary/Family Consult Narrative History of present illness: Patient is a 54-year-old female with past medical history of morbid obesity, hypothyroidism, and metabolic syndrome who presented with abdominal pain. Admitted for treatment for diverticulitis. Pulmonology consulted for concern you need for positive airway pressure therapy given component of obstructive sleep apnea and obesity hypoventilation. Patient remains dependent on PAP therapy or high flow nasal cannula to maintain oxygenation. Patient is accompanied by her . Reported to have significant shortness of breath with minimal exertion throughout the house. She reports that she is able to get around within the home and able to do minor chores such as washing dishes otherwise no significant issues with leaving the household. Patient without any significant cough, chest pain, mucus production. She denies any significant smoking history or exposure. Patient without any occupational exposure note. Patient with significant snoring and witnessed apnea by her on multiple occasions. He has tried to motivate her to lose weight and be more active but she continues to have difficulty due to daytime fatigue and somnolence. Easily able to fall asleep even during my visit today. cc:: cc: Edward Dyson MD Review of Systems Review of Systems Narrative Review of Systems: Pertinent review of systems was completed with significant findings included in HPI above. Past Medical History Past Medical History Comments PMH COMMENT: Past medical history/past surgical history reviewed. No significant family history is contributory. Non-smoker. No significant alcohol or substance abuse history. Meds Home Medications and Allergies Home Medications ?Medication ?Instructions ?Recorded ?Confirmed ?Type metformin 500 mg tablet 500 mg PO BID 04/06/21 02/26/25 History amlodipine 10 mg tablet 10 mg PO DAILY 02/26/25 02/26/25 History cholecalciferol (vitamin D3) 125 5,000 unit PO .weekly 02/26/25 02/26/25 History mcg (5,000 unit) tablet ezetimibe 10 mg tablet 10 mg PO QDAY 02/26/25 02/26/25 History ferrous sulfate 325 mg (65 mg 325 mg PO .3 times per week 02/26/25 02/26/25 History iron) tablet furosemide 20 mg tablet 20 mg PO QDAY 02/26/25 02/26/25 History losartan 50 mg tablet 50 mg PO QDAY 02/26/25 02/26/25 History rosuvastatin 40 mg tablet 40 mg PO DAILY 02/26/25 02/26/25 History Allergies Allergy/AdvReac Type Severity Reaction Status Date / Time No Known Allergies Allergy Verified 02/25/25 14:29 Exam Vital Signs Temp Pulse Resp BP Pulse Ox O2 Del Method O2 Flow Rate 96.9 F 75 18 128/79 94 L Nasal Cannula 3 03/03/25 20:00 03/03/25 20:48 03/03/25 20:00 03/03/25 20:48 03/03/25 20:00 03/03/25 20:00 03/03/25 20:00 FiO2 40 03/03/25 13:30 Narrative Exam General: No acute distress, morbidly obese Eye: PERRL, EOMI, leaving left eye closed HENT: Normocephalic, atraumatic, wearing full facemask appropriately Neck: Supple, non-tender, no JVD Lungs: No significant accessory muscle use/labored breathing, distant breath sounds no definitive crackles or rhonchi. Limited exam due to habitus. Heart: S1/S2 present, regular rate and rhythm Abdomen: Soft, nondistended. Mild epigastric tenderness. Musculoskeletal: Normal range of motion and strength, no tenderness or swelling Skin: No focal lesions Neurologic: Grossly intact Psychiatric: Cooperative, appropriate mood and affect, easily becomes somnolent though no difficulty arousing with verbal stimuli alone Physical Exam Completion Physical Exam Complete?: Yes Results - [employer] Labs 03/09/25 04:40 03/09/25 04:40 Labs: Short CBC 03/03/25 Range/Units 05:10 WBC 12.6 H (3.6-11.0) Thou/mm3 Hgb 12.5 (12.0-16.0) g/dL Hct 37.9 (36.0-46.0) % Plt Count 201 (140-440) Thou/mm3 BMP 03/03/25 05:10 Sodium 141 Potassium 3.4 Chloride 99 Carbon Dioxide 32.9 H BUN 9 Creatinine 0.9 Glucose 118 H Calcium 9.4 Liver Function 03/03/25 Range/Units 05:10 Total Bilirubin 0.7 (0.3-1.2) mg/dL AST 14 (0-34) U/L ALT < 7 L (10-49) U/L Alkaline Phosphatase 48 (46-116) U/L Albumin 3.8 (3.5-5.0) gm/dL ABG Interpretation ABG results: 02/26/25 02/26/25 02/26/25 02:53 04:39 06:13 ABG pH 7.07 L* 7.17 L* D 7.10 L* ABG pCO2 116 H* 98 H* D 117 H* D ABG pO2 96 140 H D 102 D ABG HCO3 34 H 36 H 36 H ABG O2 Saturation 95 99 H 96 ABG Base Excess 0 4 H 2 VBG pH VBG pCO2 VBG pO2 VBG Base Excess 02/26/25 02/26/25 02/26/25 08:33 11:37 11:39 ABG pH 7.21 L D 7.25 L ABG pCO2 84 H* D 78 H* ABG pO2 372 H D 223 H D ABG HCO3 33 H 34 H ABG O2 Saturation 100 H 100 H ABG Base Excess 2 4 H VBG pH 7.29 L VBG pCO2 61 H VBG pO2 134 H VBG Base Excess 1 02/26/25 02/26/25 02/27/25 14:20 19:23 02:24 ABG pH 7.29 L 7.30 L 7.38 ABG pCO2 71 H* 71 H* 61 H D ABG pO2 169 H D 191 H D 89 D ABG HCO3 34 H 35 H 36 H ABG O2 Saturation 100 H 100 H 98 ABG Base Excess 5 H 6 H 9 H VBG pH VBG pCO2 VBG pO2 VBG Base Excess 02/27/25 02/28/25 09:26 08:42 ABG pH 7.46 H 7.39 ABG pCO2 49 H D 60 H D ABG pO2 120 H D 79 L D ABG HCO3 35 H 36 H ABG O2 Saturation 100 H 96 ABG Base Excess 10 H 9 H VBG pH VBG pCO2 VBG pO2 VBG Base Excess Assessment & Plan Additional Assessment Additional Assessment: MELISSA/obesity hypoventilation syndrome Patient with multiple hallmarks of underlying apnea including potential central component. Patient with significant obstructive component due to habitus. Patient will benefit from outpatient therapy with PAP therapy though she has been unable to get to a sleep center that we should try to arrange this If unable to arrange for outpatient evaluation, patient would benefit from noninvasive positive pressure ventilation with trilogy of the device Patient's best bet for ongoing therapy would be [facility] to [facility] facility where PAP therapy can be continued Trial of her current settings of 22/10 remain appropriate with adequate tidal volumes. She does have episodes of apnea in between which suggest that there is a central component as well Backup rate can be placed to ensure ongoing ventilation Ultimately patient will need to significant weight loss and rehabilitation to increase functional capacity Counseling patient and extensively at bedside about significant risks of long-term failure to treat her apnea including risk of stroke, [place], and arrhythmia such as atrial fibrillation Thank you for allowing me to participate in the care of this patient, I remain available should any questions arise. Provider Notation Provider Notation: Although this document has been carefully reviewed, there may still be some phonetic and other typographical errors. These errors are purely grammatical due to imperfections in the software program and should not be construed in any way to compromise the substance of the patient's medical care during this visit. Thank you for the opportunity and privilege in assisting you with this patient's care and management.
--- NOTE | 2025-03-02 15:15 | PC.SS ---
Rounding: on [place] O2, pending PT, [facility] Representative consult, per Team pt will need trilogy upon DC
--- NOTE | 2025-03-02 16:52 | ESPR_ITS ---
<Statement entered by Bright Clark MD - 03/03/25 06:02> Patient was seen and examined at bedside. I agree on the assessment and plan on this note as documented by resident Nilsa Herclues DO PGY1. 54-year-old female with super super morbid obesity, BMI 62.9, class IV, hyperlipidemia, hypertension, type 2 diabetes mellitus, cholecystectomy, [place], hypothyroidism, periorbital cellulitis and anemia admitted for management of acute hypoxic and hypercapnic respiratory failure, community-acquired pneumonia, diverticulitis. Patient continues to require high flow nasal cannula, was seen by pulmonology today at bedside pulmonology recommended to continue current BiPAP settings, stressed on the importance of obtaining BiPAP on discharge, changed the goal SpO2 88-92, will continue to titrate down high flow nasal cannula, HFNC titrated down to 15 L with FiO2 30%, continue to wean off as tolerated. Stressed upon the importance of continuing levothyroxine and adjusting the dose outpatient. Patient needs close outpatient follow-up, anticipate discharge as patient's oxygen requirement improves, will discuss with social media senior associate regarding discharge with CPAP/BiPAP Case discussed with attending Dr. Edward Clark MD PGY-2 Documentation for date of: 03/02/25 Subjective Subjective Interval history: No acute events took place overnight. Patient seen and assessed in hospital bed off BiPAP and currently on high flow saturating 99.? Patient was on BiPAP overnight since 4AM this morning when she woke up. Since patient is oxygenating well and mental status is improved we will continue on high flow but with low threshold to restarting BiPAP.? Patient continues to be in abdominal discomfort and there is tenderness to palpation of the left lower quadrant. Denies nausea, vomiting, fever, or chills. BP as high as 160/81, satting 99% on HF NC (25 L). CBC unremarkable, CMP carbon dioxide 32.3 consistent with metabolic compensation. Exam Vital Signs Temp Pulse Resp BP Pulse Ox O2 Del Method O2 Flow Rate 97.1 F 83 13 162/80 H 93 L High Flow Nasal Cannula 03/02/25 16:00 03/02/25 16:00 03/02/25 16:00 03/02/25 16:00 03/02/25 16:00 03/02/25 16:03/02/25 06:36 FiO2 30 03/02/25 10:10 Narrative Exam General: No acute distress, morbidly obese Eye: PERRL, EOMI HENT: Normocephalic, atraumatic, normal hearing, moist oral mucosa, hoarse voice (chronic) Neck: Supple, non-tender, no JVD, no lymphadenopathy Lungs: Clear to auscultation bilaterally but difficult to hear breath sounds, non-labored respirations, symmetric chest rise, no use of accessory muscles, on HFNC Heart: Normal S1 and S2, no S3 or S4 appreciated. Normal rate and regular rhythm, no murmurs, rubs gallops. 2+ b/l edema Abdomen: Soft, nondistended. TTP of epigastric, LUQ and LLQ Musculoskeletal: Normal range of motion and strength, no tenderness or swelling Skin: Skin is warm, dry, no rashes or lesions. Venous stasis dermatitis b/l LE Neurologic: Alert, awake and oriented x3. CN II-XII grossly intact. Able to follow commands but somnolent. No focal neuro deficits. No signs of meningeal irritation noted. Psychiatric: Cooperative, appropriate mood and affect Objective Labs 03/03/25 05:10 03/03/25 05:10 Labs: Laboratory Results - last 24 hr 03/02/25 04:59 WBC 11.3 H RBC 3.93 L Hgb 13.0 Hct 39.2 MCV 100 MCH 33.1 MCHC 33.2 RDW Std Deviation 50.7 H Plt Count 192 Neut % (Auto) 74 Lymph % (Auto) 19 [place] % (Auto) 4 Eos % (Auto) 2 Baso % (Auto) 1 Neut # (Auto) 8.4 H Lymph # (Auto) 2.1 [place] # (Auto) 0.5 Eos # (Auto) 0.2 Baso # (Auto) 0.1 Immature Gran # (Auto) 0.07 H Absolute Nucleated RBC 0.00 Immature Gran % 1 H Nucleated RBC % 0 Sodium 140 Potassium 3.6 Chloride 99 Carbon Dioxide 32.3 H Anion Gap 9 BUN 8 L Creatinine 1.0 Estim Creat Clear Calc 91.5 eGFR > 60 BUN/Creatinine Ratio 8 L Glucose 123 H Calculated Osmolality 278 Calcium 9.3 Phosphorus 2.7 Magnesium 2.0 ABG Interpretation ABG results: 02/26/25 02/26/25 02/26/25 02:53 04:39 06:13 ABG pH 7.07 L* 7.17 L* D 7.10 L* ABG pCO2 116 H* 98 H* D 117 H* D ABG pO2 96 140 H D 102 D ABG HCO3 34 H 36 H 36 H ABG O2 Saturation 95 99 H 96 ABG Base Excess 0 4 H 2 VBG pH VBG pCO2 VBG pO2 VBG Base Excess 02/26/25 02/26/25 02/26/25 08:33 11:37 11:39 ABG pH 7.21 L D 7.25 L ABG pCO2 84 H* D 78 H* ABG pO2 372 H D 223 H D ABG HCO3 33 H 34 H ABG O2 Saturation 100 H 100 H ABG Base Excess 2 4 H VBG pH 7.29 L VBG pCO2 61 H VBG pO2 134 H VBG Base Excess 1 02/26/25 02/26/25 02/27/25 14:20 19:23 02:24 ABG pH 7.29 L 7.30 L 7.38 ABG pCO2 71 H* 71 H* 61 H D ABG pO2 169 H D 191 H D 89 D ABG HCO3 34 H 35 H 36 H ABG O2 Saturation 100 H 100 H 98 ABG Base Excess 5 H 6 H 9 H VBG pH VBG pCO2 VBG pO2 VBG Base Excess 02/27/25 02/28/25 09:26 08:42 ABG pH 7.46 H 7.39 ABG pCO2 49 H D 60 H D ABG pO2 120 H D 79 L D ABG HCO3 35 H 36 H ABG O2 Saturation 100 H 96 ABG Base Excess 10 H 9 H VBG pH VBG pCO2 VBG pO2 VBG Base Excess Quality Measures Quality Measures VTE prophylaxis Assessment & Plan Assessment Current Active Medications: Generic Name Dose Route Start Last Admin Trade Name Freq PRN Reason Stop Dose Admin Acetaminophen 650 mg 02/26/25 01:25 Acetaminophen 325 Mg Tablet PO 03/28/25 01:24 Q6H PRN Fever >100.3 Acetaminophen 650 mg 02/26/25 01:25 Acetaminophen 325 Mg Tablet PO 03/28/25 01:24 Q6H PRN PAIN SCALE 1-3 (mild Albuterol/Ipratropium 3 ml 02/26/25 11:25 Albuterol/Ipratropium (Duoneb) Rt Christine 3 Ml Nebu INH 03/28/25 11:24 Q2HR PRN SHORTNESS OF BREATH OR WHEEZE Amlodipine Besylate 10 mg 02/26/25 09:00 03/02/25 08:51 Amlodipine Besylate 5 Mg Tablet PO 03/28/25 08:59 10 mg QDAY ÁNGEL Administration Artificial Tears 0 drop 02/27/25 13:36 Artificial Tears 225 Drop/15 Ml Btl BOTH EYES 03/29/25 13:35 PRN PRN TO KEEP EYES MOIST Aspirin 81 mg 02/26/25 09:00 03/02/25 08:52 Aspirin Ec 81 Mg Tabec PO 03/28/25 08:59 81 mg QDAY ÁNGEL Administration Atorvastatin Calcium 40 mg 02/26/25 21:00 03/01/25 20:06 Atorvastatin Calcium 20 Mg Tablet PO 03/28/25 20:59 40 mg HS ÁNGEL Administration Carvedilol 3.125 mg 03/02/25 21:00 Carvedilol 3.125 Mg Tablet PO 04/01/25 20:59 BID ÁNGEL Protocol Dextrose 50 ml 02/26/25 05:51 Dextrose 50%-Water Inj 50 Ml Syringe IV 03/28/25 05:50 Q15MIN PRN BG <50 OR BG <70 & pt unresponsive Dextrose 25 ml 02/26/25 05:51 02/26/25 13:11 Dextrose 50%-Water Inj 50 Ml Syringe IV 03/28/25 05:50 25 ml Q15MIN PRN Administration BG 50-70 responsive npo pt Enoxaparin Sodium 60 mg 03/01/25 21:00 03/02/25 08:51 Enoxaparin Sod Inj 60 Mg/0.6 Ml Syringe SC 03/15/25 20:59 60 mg BID ÁNGEL Administration Glucagon 1 mg 02/26/25 05:51 Glucagon Inj 1 Mg Vial IM Q15MIN PRN BG <70, and no IV access Piperacillin/Tazobactam/Dextrose 3.375 gm in 50 mls @ 12.5 mls/hr 02/26/25 14:00 03/02/25 13:10 Zosyn IV 03/05/25 13:59 12.5 mls/hr Q8HR ÁNGEL Administration Protocol Insulin Human Lispro 0 unit 02/28/25 17:00 03/02/25 11:56 Insulin Lispro (Admelog) 1 Unit/0.01 Ml Unit SC 03/30/25 16:59 Not Given ACHS ÁNGEL Protocol Levothyroxine Sodium 125 mcg/ 175 mcg 02/27/25 06:00 03/02/25 05:12 Levothyroxine Sodium 50 mcg PO 03/29/25 05:59 175 mcg ACBR ÁNGEL Administration Losartan Potassium 25 mg 02/26/25 09:00 03/02/25 08:51 Losartan Potassium 25 Mg Tablet PO 03/28/25 08:59 25 mg QDAY ÁNGEL Administration Ondansetron HCl 4 mg 02/26/25 01:25 02/26/25 01:54 Ondansetron Inj 2 Mg/Ml Inj 2 Ml IVP 03/28/25 01:24 4 mg Q6H PRN Administration NAUSEA OR VOMITING Protocol Plan 54-year-old female with past medical history of morbid obesity, hyperlipidemia, hypertension, T2DM, cholecystectomy, [place], hypothyroidism, MRSA + periorbital cellulitis, anemia who presented to the ED on 02/25 with epigastric and left upper and lower quadrant abdominal pain x 3 days. Admitted for acute hypercapneic respiratory failure, diverticulitis. 03/01 workup of pericarditis with panels for influenza A, B and COVID came back negative.? In the setting of absent chest pain, and no acute changes on EKG, cardiology recommended symptomatic management only.? Patient continued to be on BiPAP when sleeping/nights for low oxygen (79) and elevated CO2 (60) and high flow NC 30 L/min while awake/days. PT recommended homeheatlh PT upon dc to home for home safety (decrease risk of fall, increase MM strength, and improve mobility). #Acute hypoxic hypercapnic respiratory failure #Obesity Hypoventilation Syndrome #MELISSA Respiratory failure likely secondary to obesity hypoventilation syndrome due to MELISSA The patient's mentation has significantly improved since admission, likely in response to the initiation of BiPAP therapy. There is a marked improvement in hypercapnia as well. Most recent ABG shows pH 7.46, pCO2 49, pO2 120 Patient was trialed off BiPAP however oxygenation dropped to the 70s so BiPAP was back on nights/sleep time, and HF NC at other times. Plan: - Weaning off HFNC, with goal O2 sat >88% - Ambulate 3 times daily, incentive spirometry - Pulm consulted, Dr. Wolff, appreciate recs - NPO due to encephalopathy. - encouraged incentive spirometry #Diverticulosis #Sigmoid diverticulitis Patient is afebrile. Lactic acid improved from 1.3 to 0.7, and lipase is within normal limits. CT A/P without contrast showed colonic diverticulosis with abnormal small bowel loops, wall thickening, and inflammatory changes, suggesting acute diverticulitis of the sigmoid colon. CT A/P also revealed hepatocellular disease with irregular liver contour, a 19 mm uterine fundal mass, and mild nodular thickening of the adrenal glands. CTA A/P confirmed diverticulosis of the colon, thickening of the cecum and ascending colon, and inflammatory changes. No evidence of bowel obstruction, free fluid, free air, or abscess. Right adrenal nodule 2.2 cm noted. Given ceftriaxone 1 g IV, morphine 4 mg IV, Zofran 4 mg IV, 500 mL NS, metronidazole 500 mg IV. Blood ctx were negative at 48h point in 2/2 bottles. Plan: - Continue Zosyn 3.375 every 8 hours #Pericardial effusion, chronic #c/f pericarditis Pt denies chest pain, afebrile, hypertensive Seen on CTA a/p. No aortic dissection seen on CTA prelim read DDX: post-WA, hypothyroidism, viral, malignancy, inflammatory/autoimmune Echo done 02/26 showed pericardium appears normal. There is small to moderate circumferential pericardial effusion. No evidence of cardiac tamponade. Fribrogenous exudate on LV and RV velez indicating chronic effusion. Viral panel with influenza A, B, and COVID came back negative. Plan: - Cardiology consulted, Dr. Page - No need for pericardiocentesis at this time as there is no concern for tamponade - Consider NSAID therapy if patient develops chest pain #Hypertension, chronic #Hypertensive urgency - resolved 188/105 (HR 88) --> 134/93, HR 69 Plan: - Amlodipine 10 mg daily (listed as home med) - Losartan 25 mg daily (home dose 50mg daily) - Resumed carvedilol PO 3.125mg bid #T2DM A1c 6.8 Plan: - SSI #Nodular Thickening of Rt adrenal gland findings of CT imaging 02/26/2025 Recommend outpatient follow-up with evaluation of labs for metanephrines, free cortisol, renin/aldosterone levels #Hypothyroidism TSH 59.14, T4 0.17 Plan: - Levothyroxine 175 mcg daily - Recommend outpatient endocrine follow-up #Hyperlipidemia #Hx of [place] - Continue Aspirin 81 mg daily, atorvastatin 40 mg daily (listed as home med) Health Maintenance: Dispo: Admit to tele for w/u acute hypercapneic respiratory failure, diverticulitis Diet: NPO Bowel Reg: n/a VTE ppx: heparin subQ GI ppx: n/a Pain mgmt: Tylenol, morphine 2 mg IV q6h PRN Code status: Full This case was discussed with my attending physician, Dr. Dyson, and senior resident, Dr Clark. Nilsa Hercules, DO PGY I Attending Provider Attestation/Addendum I have examined the patient, reviewed labs and imaging findings, discussed the case with the resident(s), and reviewed entered orders. I agree with the plan of care as outlined in this note, with these additional summaries/recommendations: Patient seen at bedside. No acute overnight events. Patient was seen by pulmonology. Pulmonology recommends targeting O2 saturation of 88% and continue BiPAP/CPAP when sleeping. Recommends continued physical therapy and mobilization. Avoid sedating medications. Patient will need home BiPAP/CPAP when medically cleared for discharge. Outpatient sleep study. Patient requiring high flow nasal cannula when awake and we will continue to attempt to titrate down to nasal cannula. Continue HFNC, breathing treatments, and IV antibiotics. Patient also noted to have diverticulitis and continue IV antibiotics. Blood cultures negative to date. Bowel rest and pain management. Pericardial effusion noted on CT and echocardiogram obtained which showed fibrinogeneous indicating chronic effusion. Cardiology following and recommends outpatient follow-up. Nodular thickening of right adrenal gland noted and patient will need elective MRI outpatient for further workup and management. Patient has severely uncontrolled hypothyroidism likely secondary to medication noncompliance. TSH 59.14 and free T4 0.17. Continue levothyroxine. Insulin sliding scale for diabetes mellitus type 2 with Accu-Cheks. Target blood sugar of 140-180 while hospitalized. Patient updated on the plan and agreement. All questions answered to satisfaction. Please see residents note for additional details and management. Dr. Kiel MD
--- NOTE | 2025-03-02 17:25 | PC.NURSE ---
md conn notified of current bp of 162/80-84HR per md will put in a one time dose of coreg shortly.
[2025-03-02] MEDS: ATORVASTATIN CALCIUM 20 MG TABLET 40 MG PO (20:16)
[2025-03-03] VITALS (15 sets, daily range): BP systolic 127–163; BP diastolic 71–92; PULSE 64–85; RESP 12–96; TEMP 36.1–36.6; O2SAT 93–99; BMI 63.1; BMI 13.0
[2025-03-03] MEDS: LEVOTHYROXINE SODIUM 125 MCG, LEVOTHYROXINE SODIUM 50 MCG 175 MCG PO (05:20)
[2025-03-03] MEDS: PIPER/TAZO 3.375 GM PREMIX 3.375 GM/50 ML BAG IV (05:20)
[2025-03-03 05:45] LABS: Basophils # (Auto) 0.1 Thou/mm3 (0.0-0.2); Basophils % (Auto) 1 % (0-2.5); Eosinophils # (Auto) 0.3 Thou/mm3 (0.0-0.5); Eosinophils % (Auto) 3 % (0-10); Hematocrit 37.9 % (36.0-46.0); Hemoglobin 12.5 g/dL (12.0-16.0); Immature Granulocytes Auto 0.09 Thou/mm3 (0.00-0.00); Lymphocytes # (Auto) 2.0 Thou/mm3 (1.0-4.8); Lymphocytes % (Auto) 16 % (10-50); Mean Corpuscular HGB Conc 33.0 g/dl (31.0-37.0); Mean Corpuscular Hemoglobin 32.7 pg (25.0-35.0); Mean Corpuscular Volume 99 fL (80-100); Monocytes # (Auto) 0.6 Thou/mm3 (0.0-0.8); Monocytes % (Auto) 5 % (0-12); Neutrophils # (Auto) 9.5 Thou/mm3 (1.8-7.7); Neutrophils % (Auto) 76 % (37-80); Nucleated Red Blood Cell # 0.00 Thou/mm3 (0.00-0.00); Nucleated Red Blood Cell % 0 /100 WBC (0); Platelet Count 201 Thou/mm3 (140-440); RDW Standard Deviation 49.3 fL (36.4-46.3); Red Blood Count 3.82 Miln/mm3 (4.00-5.20); White Blood Count 12.6 Thou/mm3 (3.6-11.0)
[2025-03-03 06:25] LABS: Alanine Aminotransferase < 7 U/L (10-49); Albumin, Serum 3.8 gm/dL (3.5-5.0); Albumin/Globulin Ratio 1.5 (1.2-2.2); Alkaline Phosphatase 48 U/L (46-116); Anion Gap 9 (7-16); Aspartate Amino Transferase 14 U/L (0-34); BUN/Creatinine Ratio 10 Ratio (12-20); Bilirubin,Total 0.7 mg/dL (0.3-1.2); Blood Urea Nitrogen 9 mg/dL (9-23); Calcium 9.4 mg/dL (8.3-10.6); Calcium (Corrected) 9.6 mg/dL (8.5-10.1); Carbon Dioxide 32.9 mMol/L (20.0-31.0); Chloride 99 mMol/L (98-107); Creatinine (Component) 0.9 mg/dL (0.6-1.3); Estimated Creatinine Clearance 101.9 mL/min (>60); Globulin 2.5 gm/dL (2.3-3.5); Glucose 118 mg/dL (74-106); Magnesium 1.9 mg/dL (1.6-2.6); Osmolality,Calculated 280 (275-295); Phosphorous 2.9 mg/dL (2.4-5.1); Potassium 3.4 mMol/L (3.4-5.1); Sodium 141 mMol/L (136-145); Total Protein 6.3 gm/dL (5.7-8.2); eGFR > 60 See Note
[2025-03-03] MEDS: LOSARTAN POTASSIUM 25 MG TABLET PO (08:37)
[2025-03-03] MEDS: ENOXAPARIN SOD INJ 60 MG/0.6 ML SYRINGE SC ×2 (08:37→20:48)
[2025-03-03] MEDS: ASPIRIN EC 81 MG TABEC PO (08:38)
--- NOTE | 2025-03-03 08:46 | PC.SS ---
Follow up note: On high flow O2. On IV antibiotic. Pt will return home with . Pt will require Trilogy upon d.c.
[2025-03-03] MEDS: CIPROFLOXACIN/D5w 400 MG IVPB 400 MG/200 ML BAG 200 MG IV ×2 (12:17→20:47)
[2025-03-03] MEDS: metroNIDAZOLE/NS 500 MG IVPB 500 MG/100 ML BAG 200 MG IV ×3 (12:18→21:27)
--- NOTE | 2025-03-03 16:55 | ESPR_ITS ---
<Statement entered by Bright Clark MD - 03/03/25 20:53> Patient was seen and examined at bedside. I agree on the assessment and plan on this note as documented by resident Nilsa Hercules DO PGY1. 54-year-old female with past medical history as below, currently patient's hospital course is prolonged with significant hypoxia requiring high flow nasal cannula, goal SpO2 change to greater than 88 will try to wean off of high flow, patient will work with physical therapy today. Will continue to encourage mobilization, antibiotic therapy de-escalated to ciprofloxacin and Flagyl for diverticulitis/community-acquired pneumonia management. Patient's daughter called and updated regarding current condition also informed regarding nodular thickening of the right adrenal gland and outpatient workup. Also stressed the importance of compliance with thyroid medication and possible referral to endocrinology for optimal management. Case discussed with attending Dr. Edward Clark MD PGY-2 Documentation for date of: 03/03/25 Subjective Subjective Interval history: Patient seen and assessed in hospital bed off BiPAP and currently on HF NC and saturating 93%. No acute events took place overnight. ? Patient was on BiPAP overnight, and transitioned to HFNC since 4AM this morning when she woke up. denies SOB, chest pain, dyspnea. Abdominal discomfort has gone away virtually, and patient able to generate BM without issues. Denies constipation, diarrhea, melena, or hematochezia, nausea, vomiting, fever, or chills. Exam Vital Signs Temp Pulse Resp BP Pulse Ox O2 Del Method O2 Flow Rate 97.1 F 73 18 145/83 H 95 Nasal Cannula 15 03/03/25 12:00 03/03/25 16:00 03/03/25 13:30 03/03/25 12:00 03/03/25 13:30 03/03/25 12:00 03/03/25 13:30 FiO2 40 03/03/25 13:30 Narrative Exam General: No acute distress, morbidly obese Eye: PERRL, EOMI HENT: Normocephalic, atraumatic, normal hearing, moist oral mucosa, hoarse voice (chronic) Neck: Supple, non-tender, no JVD, no lymphadenopathy Lungs: Clear to auscultation bilaterally but difficult to hear breath sounds, non-labored respirations, symmetric chest rise, no use of accessory muscles, on HFNC Heart: Normal S1 and S2, no S3 or S4 appreciated. Normal rate and regular rhythm, no murmurs, rubs gallops. 2+ b/l edema Abdomen: Soft, nondistended. TTP of LLQ. Musculoskeletal: Normal range of motion and strength, no tenderness or swelling Skin: Skin is warm, dry, no rashes or lesions. Venous stasis dermatitis b/l LE Neurologic: Alert, awake and oriented x3. CN II-XII grossly intact. Able to follow commands but somnolent. No focal neuro deficits. No signs of meningeal irritation noted. Psychiatric: Cooperative, appropriate mood and affect Objective Labs 03/09/25 04:40 03/09/25 04:40 Labs: Laboratory Results - last 24 hr 03/03/25 05:10 WBC 12.6 H RBC 3.82 L Hgb 12.5 Hct 37.9 MCV 99 MCH 32.7 MCHC 33.0 RDW Std Deviation 49.3 H Plt Count 201 Neut % (Auto) 76 Lymph % (Auto) 16 Mcdonald % (Auto) 5 Eos % (Auto) 3 Baso % (Auto) 1 Neut # (Auto) 9.5 H Lymph # (Auto) 2.0 Mcdonald # (Auto) 0.6 Eos # (Auto) 0.3 Baso # (Auto) 0.1 Immature Gran # (Auto) 0.09 H Absolute Nucleated RBC 0.00 Immature Gran % 1 H Nucleated RBC % 0 Sodium 141 Potassium 3.4 Chloride 99 Carbon Dioxide 32.9 H Anion Gap 9 BUN 9 Creatinine 0.9 Estim Creat Clear Calc 101.9 eGFR > 60 BUN/Creatinine Ratio 10 L Glucose 118 H Calculated Osmolality 280 Calcium 9.4 Corrected Calcium 9.6 Phosphorus 2.9 Magnesium 1.9 Total Bilirubin 0.7 AST 14 ALT < 7 L Alkaline Phosphatase 48 Total Protein 6.3 Albumin 3.8 Globulin 2.5 Albumin/Globulin Ratio 1.5 ABG Interpretation ABG results: 02/26/25 02/26/25 02/26/25 02:53 04:39 06:13 ABG pH 7.07 L* 7.17 L* D 7.10 L* ABG pCO2 116 H* 98 H* D 117 H* D ABG pO2 96 140 H D 102 D ABG HCO3 34 H 36 H 36 H ABG O2 Saturation 95 99 H 96 ABG Base Excess 0 4 H 2 VBG pH VBG pCO2 VBG pO2 VBG Base Excess 02/26/25 02/26/25 02/26/25 08:33 11:37 11:39 ABG pH 7.21 L D 7.25 L ABG pCO2 84 H* D 78 H* ABG pO2 372 H D 223 H D ABG HCO3 33 H 34 H ABG O2 Saturation 100 H 100 H ABG Base Excess 2 4 H VBG pH 7.29 L VBG pCO2 61 H VBG pO2 134 H VBG Base Excess 1 02/26/25 02/26/25 02/27/25 14:20 19:23 02:24 ABG pH 7.29 L 7.30 L 7.38 ABG pCO2 71 H* 71 H* 61 H D ABG pO2 169 H D 191 H D 89 D ABG HCO3 34 H 35 H 36 H ABG O2 Saturation 100 H 100 H 98 ABG Base Excess 5 H 6 H 9 H VBG pH VBG pCO2 VBG pO2 VBG Base Excess 02/27/25 02/28/25 09:26 08:42 ABG pH 7.46 H 7.39 ABG pCO2 49 H D 60 H D ABG pO2 120 H D 79 L D ABG HCO3 35 H 36 H ABG O2 Saturation 100 H 96 ABG Base Excess 10 H 9 H VBG pH VBG pCO2 VBG pO2 VBG Base Excess Quality Measures Quality Measures VTE prophylaxis Assessment & Plan Assessment Current Active Medications: Generic Name Dose Route Start Last Admin Trade Name Freq PRN Reason Stop Dose Admin Acetaminophen 650 mg 02/26/25 01:25 Acetaminophen 325 Mg Tablet PO 03/28/25 01:24 Q6H PRN Fever >100.3 Acetaminophen 650 mg 02/26/25 01:25 Acetaminophen 325 Mg Tablet PO 03/28/25 01:24 Q6H PRN PAIN SCALE 1-3 (mild Albuterol/Ipratropium 3 ml 02/26/25 11:25 Albuterol/Ipratropium (Duoneb) Rt Christine 3 Ml Nebu INH 03/28/25 11:24 Q2HR PRN SHORTNESS OF BREATH OR WHEEZE Amlodipine Besylate 10 mg 02/26/25 09:00 03/03/25 08:38 Amlodipine Besylate 5 Mg Tablet PO 03/28/25 08:59 10 mg QDAY ÁNGEL Administration Artificial Tears 0 drop 02/27/25 13:36 Artificial Tears 225 Drop/15 Ml Btl BOTH EYES 03/29/25 13:35 PRN PRN TO KEEP EYES MOIST Aspirin 81 mg 02/26/25 09:00 03/03/25 08:38 Aspirin Ec 81 Mg Tabec PO 03/28/25 08:59 81 mg QDAY ÁNGEL Administration Atorvastatin Calcium 40 mg 02/26/25 21:00 03/02/25 20:16 Atorvastatin Calcium 20 Mg Tablet PO 03/28/25 20:59 40 mg HS ÁNGEL Administration Carvedilol 3.125 mg 03/02/25 21:00 Carvedilol 3.125 Mg Tablet PO 04/01/25 20:59 BID ÁNGEL Protocol Dextrose 50 ml 02/26/25 05:51 Dextrose 50%-Water Inj 50 Ml Syringe IV 03/28/25 05:50 Q15MIN PRN BG <50 OR BG <70 & pt unresponsive Dextrose 25 ml 02/26/25 05:51 02/26/25 13:11 Dextrose 50%-Water Inj 50 Ml Syringe IV 03/28/25 05:50 25 ml Q15MIN PRN Administration BG 50-70 responsive npo pt Enoxaparin Sodium 60 mg 03/01/25 21:00 03/03/25 08:37 Enoxaparin Sod Inj 60 Mg/0.6 Ml Syringe SC 03/15/25 20:59 60 mg BID ÁNGEL Administration Glucagon 1 mg 02/26/25 05:51 Glucagon Inj 1 Mg Vial IM Q15MIN PRN BG <70, and no IV access Metronidazole 500 mg in 100 mls @ 200 mls/hr 03/03/25 10:01 03/03/25 13:54 Flagyl 500 Mg Iv IV 03/04/25 23:55 200 mls/hr Q8HR ÁNGEL Administration Ciprofloxacin/Dextrose 400 mg in 200 mls @ 200 mls/hr 03/03/25 10:01 03/03/25 12:17 Cipro Ivpb IV 03/04/25 23:55 200 mls/hr Q12HR ÁNGEL Administration Insulin Human Lispro 0 unit 02/28/25 17:00 03/03/25 12:18 Insulin Lispro (Admelog) 1 Unit/0.01 Ml Unit SC 03/30/25 16:59 Not Given ACHS ÁNGEL Protocol Levothyroxine Sodium 125 mcg/ 175 mcg 02/27/25 06:00 03/03/25 05:20 Levothyroxine Sodium 50 mcg PO 03/29/25 05:59 175 mcg ACBR ÁNGEL Administration Losartan Potassium 25 mg 02/26/25 09:00 03/03/25 08:37 Losartan Potassium 25 Mg Tablet PO 03/28/25 08:59 25 mg QDAY ÁNGEL Administration Ondansetron HCl 4 mg 02/26/25 01:25 02/26/25 01:54 Ondansetron Inj 2 Mg/Ml Inj 2 Ml IVP 03/28/25 01:24 4 mg Q6H PRN Administration NAUSEA OR VOMITING Protocol Plan 54-year-old female with past medical history of morbid obesity, hyperlipidemia, hypertension, T2DM, cholecystectomy, [place], hypothyroidism, MRSA + periorbital cellulitis, anemia who presented to the ED on 02/25 with epigastric and left upper and lower quadrant abdominal pain x 3 days. Admitted for acute hypercapneic respiratory failure, diverticulitis. #Acute hypoxic hypercapnic respiratory failure #Obesity Hypoventilation Syndrome (OHS) #Obstructive Sleep Apnea (MELISSA) Respiratory failure likely secondary to obesity hypoventilation syndrome due to MELISSA The patient's mentation has significantly improved since admission, likely in response to the initiation of BiPAP therapy. There is a marked improvement in hypercapnia as well. Most recent ABG shows pH 7.46, pCO2 49, pO2 120 Patient was trialed off BiPAP however oxygenation dropped to the 70s so BiPAP was back on nights/sleep time, and HF NC at other times. Plan: - Weaning off HFNC and titrating down to nasal canula, with goal O2 sat >88%, as recommended by pulmonology - BiPAP/CPAP when sleeping - encourage incentive spirometry - DuoNeb RT Q2h PRN - Ambulate 3 times daily, physical therapy and mobilization. - Avoid sedating medications. - Pulm consulted, Dr. Wolff, appreciate recs - Patient will need home BiPAP/CPAP upon discharge. - Outpatient sleep study. #Diverticulosis #Sigmoid diverticulitis Patient is afebrile. Lactic acid improved from 1.3 to 0.7, and lipase is within normal limits. CT A/P without contrast showed colonic diverticulosis with abnormal small bowel loops, wall thickening, and inflammatory changes, suggesting acute diverticulitis of the sigmoid colon. CT A/P also revealed hepatocellular disease with irregular liver contour, a 19 mm uterine fundal mass, and mild nodular thickening of the adrenal glands. CTA A/P confirmed diverticulosis of the colon, thickening of the cecum and ascending colon, and inflammatory changes. No evidence of bowel obstruction, free fluid, free air, or abscess. Right adrenal nodule 2.2 cm noted. Given ceftriaxone 1 g IV, morphine 4 mg IV, Zofran 4 mg IV, 500 mL NS, metronidazole 500 mg IV. ? Blood ctx were negative at 48h point in 2/2 bottles. ? Pt completed 5 day course of Zosyn 3.375g TID 03/02/2025 Plan: - Ciprofloxacin IV 400 mg twice daily (03/03 - ) - Flagyl IV 500 mg 3 times daily (03/03 - ) - Bowel rest and pain management. #Pericardial effusion, chronic #c/f pericarditis Pt denies chest pain, afebrile, hypertensive Seen on CTA a/p. No aortic dissection seen on CTA prelim read DDX: post-WA, hypothyroidism, viral, malignancy, inflammatory/autoimmune Echo done 02/26 showed pericardium appears normal. There is small to moderate circumferential pericardial effusion. No evidence of cardiac tamponade. Fribrogenous exudate on LV and RV velez indicating chronic effusion. Viral panel with influenza A, B, and COVID came back negative. Plan: - Cardiology consulted, Dr. Page - No need for pericardiocentesis at this time as there is no concern for tamponade - Consider NSAID therapy if patient develops chest pain #Hypertension, chronic #Hypertensive urgency - resolved 188/105 (HR 88) --> 134/93, HR 69 Plan: - Amlodipine 10 mg daily (listed as home med) - Losartan 25 mg daily (home dose 50mg daily) - Resumed carvedilol PO 3.125mg bid #T2DM A1c 6.8 Plan: - Target blood sugar of 140-180 while hospitalized. - SSI #Nodular Thickening of Rt adrenal gland findings of CT imaging 02/26/2025 - Recommend outpatient follow-up with evaluation of labs for metanephrines, free cortisol, renin/aldosterone levels - elective MRI outpatient for further workup and management. #Hypothyroidism Patient has severely uncontrolled hypothyroidism likely secondary to medication noncompliance. TSH 59.14, T4 0.17 Plan: - Levothyroxine 175 mcg daily - Recommend outpatient endocrine follow-up #Hyperlipidemia #Hx of WA - Continue Aspirin 81 mg daily, atorvastatin 40 mg daily (listed as home med) Health Maintenance: Dispo: Admit to tele for w/u acute hypercapneic respiratory failure, diverticulitis. PT recommended homeheatlh PT upon dc to home for home safety (decrease risk of fall, increase MM strength, and improve mobility). Diet: Special diet VTE ppx: Lovenox 60mg bid Pain mgmt: Tylenol, morphine 2 mg IV q6h PRN Code status: Full This case was discussed with my attending physician, Dr. Dyson, and senior resident, Dr Clark. Nilsa Hercules, DO PGY I Attending Provider Attestation/Addendum I have examined the patient, reviewed labs and imaging findings, discussed the case with the resident(s), and reviewed entered orders. I agree with the plan of care as outlined in this note, with these additional summaries/recommendations: Patient seen at bedside. No acute overnight events. Patient was seen by pulmonology. Pulmonology recommends targeting O2 saturation of 88% and continue BiPAP/CPAP when sleeping. Recommends continued physical therapy and mobilization. Avoid sedating medications. Patient will need home BiPAP/CPAP when medically cleared for discharge. Outpatient sleep study. Patient requiring high flow nasal cannula when awake and we will continue to attempt to titrate down to nasal cannula. Overall 02 requirements continue to improve. Continue HFNC, breathing treatments, and IV antibiotics. Patient also noted to have diverticulitis and continue IV antibiotics. Blood cultures negative to date. Descalate abx today 03/03. Pain management as needed. Pericardial effusion noted on CT and echocardiogram obtained which showed fibrinogeneous indicating chronic effusion. Cardiology following and recommends outpatient follow-up. Nodular thickening of right adrenal gland noted and patient will need elective MRI outpatient for further workup and management as well as renin/aldosterone, cortisol, and metanephrines blood tests with primary care provider. Patient has severely uncontrolled hypothyroidism likely secondary to medication noncompliance. TSH 59.14 and free T4 0.17. Continue levothyroxine. Insulin sliding scale for diabetes mellitus type 2 with Accu-Cheks. Target blood sugar of 140-180 while hospitalized. Patient updated on the plan and agreement. All questions answered to satisfaction. Please see residents note for additional details and management. Dr. Kiel MD
[2025-03-03] MEDS: ATORVASTATIN CALCIUM 20 MG TABLET 40 MG PO (20:48)
[2025-03-04] VITALS (14 sets, daily range): BP systolic 122–154; BP diastolic 69–86; PULSE 60–82; RESP 12–25; TEMP 36.1–36.3; O2SAT 92–98
[2025-03-04] MEDS: LEVOTHYROXINE SODIUM 125 MCG, LEVOTHYROXINE SODIUM 50 MCG 175 MCG PO (05:04)
[2025-03-04] MEDS: metroNIDAZOLE/NS 500 MG IVPB 500 MG/100 ML BAG 200 MG IV ×3 (05:04→21:54)
[2025-03-04 05:45] LABS: Basophils # (Auto) 0.1 Thou/mm3 (0.0-0.2); Basophils % (Auto) 0 % (0-2.5); Eosinophils # (Auto) 0.3 Thou/mm3 (0.0-0.5); Eosinophils % (Auto) 3 % (0-10); Hematocrit 35.1 % (36.0-46.0); Hemoglobin 11.4 g/dL (12.0-16.0); Immature Granulocytes Auto 0.09 Thou/mm3 (0.00-0.00); Lymphocytes # (Auto) 1.8 Thou/mm3 (1.0-4.8); Lymphocytes % (Auto) 15 % (10-50); Mean Corpuscular HGB Conc 32.5 g/dl (31.0-37.0); Mean Corpuscular Hemoglobin 32.3 pg (25.0-35.0); Mean Corpuscular Volume 99 fL (80-100); Monocytes # (Auto) 0.6 Thou/mm3 (0.0-0.8); Monocytes % (Auto) 4 % (0-12); Neutrophils # (Auto) 9.7 Thou/mm3 (1.8-7.7); Neutrophils % (Auto) 77 % (37-80); Nucleated Red Blood Cell # 0.00 Thou/mm3 (0.00-0.00); Nucleated Red Blood Cell % 0 /100 WBC (0); Platelet Count 205 Thou/mm3 (140-440); RDW Standard Deviation 49.9 fL (36.4-46.3); Red Blood Count 3.53 Miln/mm3 (4.00-5.20); White Blood Count 12.5 Thou/mm3 (3.6-11.0)
[2025-03-04 06:20] LABS: Alanine Aminotransferase < 7 U/L (10-49); Albumin, Serum 3.6 gm/dL (3.5-5.0); Albumin/Globulin Ratio 1.6 (1.2-2.2); Alkaline Phosphatase 42 U/L (46-116); Anion Gap 9 (7-16); Aspartate Amino Transferase 14 U/L (0-34); BUN/Creatinine Ratio 10 Ratio (12-20); Bilirubin,Total 0.5 mg/dL (0.3-1.2); Blood Urea Nitrogen 9 mg/dL (9-23); Calcium 9.2 mg/dL (8.3-10.6); Calcium (Corrected) 9.5 mg/dL (8.5-10.1); Carbon Dioxide 33.0 mMol/L (20.0-31.0); Chloride 100 mMol/L (98-107); Creatinine (Component) 0.9 mg/dL (0.6-1.3); Estimated Creatinine Clearance 101.9 mL/min (>60); Globulin 2.2 gm/dL (2.3-3.5); Glucose 123 mg/dL (74-106); Magnesium 1.7 mg/dL (1.6-2.6); Osmolality,Calculated 282 (275-295); Phosphorous 3.0 mg/dL (2.4-5.1); Potassium 3.2 mMol/L (3.4-5.1); Sodium 142 mMol/L (136-145); Total Protein 5.8 gm/dL (5.7-8.2); eGFR > 60 See Note
[2025-03-04] MEDS: Magnesium Sulfate 2 GM Ivpb 2 GM/50 ML BAG IV (08:53)
[2025-03-04] MEDS: ENOXAPARIN SOD INJ 60 MG/0.6 ML SYRINGE SC ×2 (08:53→20:15)
[2025-03-04] MEDS: CIPROFLOXACIN/D5w 400 MG IVPB 400 MG/200 ML BAG 200 MG IV ×2 (08:53→20:16)
[2025-03-04] MEDS: ASPIRIN EC 81 MG TABEC PO (08:54)
[2025-03-04] MEDS: LOSARTAN POTASSIUM 25 MG TABLET PO (08:54)
--- NOTE | 2025-03-04 08:58 | PC.SS ---
SS has sent DME order for Trilogy using [facility].
--- NOTE | 2025-03-04 10:06 | PC.SS ---
SS met with bedside nurse, Rosanne to explain pt is requiring O2 testing to order home O2 and Trilogy Machine. SS has spoke to Liza from [employer] and they are not contracted with patient's health insurance. SS spoke to Beata from [email or web address] who explained they are contracted with patient's health insurance.
--- NOTE | 2025-03-04 10:39 | PC.LAC ---
O2 PORTABILITY TEST WAS CONDUCTED WITH PT IN BED AT REST. Room air SpO2% at rest was 88%. Room air SpO2% with exercise was at 83%. Recovery test SpO2%on O2 with exercise was at 86%. Notable distress without oxygen noted.
--- NOTE | 2025-03-04 11:29 | PC.SS ---
Addendum entered by Nahed Recinos 03/04/25 12:09: SS has met with pt who is agreeable for SS to schedule a follow up appointment with PCP. Patient's choice is [facility]. SS spoke to Mare from [facility] and scheduled pt an appointment for Mar 12, 2025 at 1:[address] Grady from [facility] address: [address] [place] [address]. [id number] phone# [phone] Addendum entered by Nahed Recinos 03/04/25 12:04: SS also faxed DME order for Trilogy Machine and continuos home O2 to patient's health insurance, [facility]. Original Note: SS has faxed DME order for Trilogy Machine and continuos home O2 to [facility]. SS was informed on [facility] is not contracted with patient's health insurance.
[2025-03-04] MEDS: INSULIN LISPRO (AdmeLOG) 1 UNIT/0.01 ML UNIT SC (11:40)
--- NOTE | 2025-03-04 14:49 | PC.SS ---
Addendum entered by Nahed Recinos 03/04/25 15:36: SS has sent PASRR assessment to [facility] on [facility]. Addendum entered by Nahed Recinos 03/04/25 15:14: SS has sent updated inquiry to to [facility] using [facility]. [facility] and has informed him pt will be d/c to SNF and he cancelled DME order for Trilogy and home O2. Alka from [facility] is aware pt is requiring Bipap Machine and bipap settings have been sent in the inquiry on [employer]. Original Note: SS received call from Alka at [facility] who explained their representatives did an onsite with pt and pt is now requesting SNF and has chosen their facility. SS met with pt to verify dc plan to home with Trilogy and home O2 or d/c to SNF. Patient's choice is now to go to SNF, [facility]. Pt is aware Trilogy and home O2 will be cancelled. Jean-Pierre from [facility] are aware pt will be ready for d/c tomorrow and insurance authorization is required.
--- NOTE | 2025-03-04 15:19 | PC.CC ---
PASRR Level 1 completed and downloaded. Level 2 not required.
--- NOTE | 2025-03-04 15:34 | PD.RESPRO ---
Documentation for date of: 03/04/25 Subjective Subjective Interval history: No overnight events. Patient seen and examined at bedside, resting comfortably. Patient titrated down to 1 L LPM via nasal cannula. Maintains good saturation 92%. Goal to get patient up to bed 3 times daily. Durand catheter exchanged for PureWick. Possible discharge to SNF for further rehab. Exam Vital Signs Temp Pulse Resp BP Pulse Ox O2 Del Method O2 Flow Rate 97.3 F 70 19 130/70 93 L Nasal Cannula 1 03/04/25 11:57 03/04/25 11:57 03/04/25 11:57 03/04/25 11:57 03/04/25 11:57 03/04/25 11:57 03/04/25 11:57 FiO2 30 03/04/25 08:00 Narrative Exam General: No acute distress, morbidly obese Eye: PERRL, EOMI HENT: Normocephalic, atraumatic, normal hearing, moist oral mucosa, hoarse voice (chronic) Neck: Supple, non-tender, no JVD, no lymphadenopathy Lungs: Clear to auscultation bilaterally but difficult to hear breath sounds, non-labored respirations, symmetric chest rise, no use of accessory muscles Heart: Normal S1 and S2, no S3 or S4 appreciated. Normal rate and regular rhythm, no murmurs, rubs gallops. 1+ b/l edema Abdomen: Soft, nondistended. No tenderness Musculoskeletal: Normal range of motion and strength, no tenderness or swelling Skin: Skin is warm, dry, no rashes or lesions. Venous stasis dermatitis b/l LE Neurologic: Alert, awake and oriented x3. CN II-XII grossly intact. Able to follow commands but somnolent. No focal neuro deficits. No signs of meningeal irritation noted. Psychiatric: Cooperative, appropriate mood and affect Objective Labs 03/04/25 05:05 03/04/25 05:05 Labs: Laboratory Results - last 24 hr 03/04/25 05:05 WBC 12.5 H RBC 3.53 L Hgb 11.4 L Hct 35.1 L MCV 99 MCH 32.3 MCHC 32.5 RDW Std Deviation 49.9 H Plt Count 205 Neut % (Auto) 77 Lymph % (Auto) 15 [place] % (Auto) 4 Eos % (Auto) 3 Baso % (Auto) 0 Neut # (Auto) 9.7 H Lymph # (Auto) 1.8 [place] # (Auto) 0.6 Eos # (Auto) 0.3 Baso # (Auto) 0.1 Immature Gran # (Auto) 0.09 H Absolute Nucleated RBC 0.00 Immature Gran % 1 H Nucleated RBC % 0 Sodium 142 Potassium 3.2 L Chloride 100 Carbon Dioxide 33.0 H Anion Gap 9 BUN 9 Creatinine 0.9 Estim Creat Clear Calc 101.9 eGFR > 60 BUN/Creatinine Ratio 10 L Glucose 123 H Calculated Osmolality 282 Calcium 9.2 Corrected Calcium 9.5 Phosphorus 3.0 Magnesium 1.7 Total Bilirubin 0.5 AST 14 ALT < 7 L Alkaline Phosphatase 42 L Total Protein 5.8 Albumin 3.6 Globulin 2.2 L Albumin/Globulin Ratio 1.6 ABG Interpretation ABG results: 02/26/25 02/26/25 02/26/25 02:53 04:39 06:13 ABG pH 7.07 L* 7.17 L* D 7.10 L* ABG pCO2 116 H* 98 H* D 117 H* D ABG pO2 96 140 H D 102 D ABG HCO3 34 H 36 H 36 H ABG O2 Saturation 95 99 H 96 ABG Base Excess 0 4 H 2 VBG pH VBG pCO2 VBG pO2 VBG Base Excess 02/26/25 02/26/25 02/26/25 08:33 11:37 11:39 ABG pH 7.21 L D 7.25 L ABG pCO2 84 H* D 78 H* ABG pO2 372 H D 223 H D ABG HCO3 33 H 34 H ABG O2 Saturation 100 H 100 H ABG Base Excess 2 4 H VBG pH 7.29 L VBG pCO2 61 H VBG pO2 134 H VBG Base Excess 1 02/26/25 02/26/25 02/27/25 14:20 19:23 02:24 ABG pH 7.29 L 7.30 L 7.38 ABG pCO2 71 H* 71 H* 61 H D ABG pO2 169 H D 191 H D 89 D ABG HCO3 34 H 35 H 36 H ABG O2 Saturation 100 H 100 H 98 ABG Base Excess 5 H 6 H 9 H VBG pH VBG pCO2 VBG pO2 VBG Base Excess 02/27/25 02/28/25 09:26 08:42 ABG pH 7.46 H 7.39 ABG pCO2 49 H D 60 H D ABG pO2 120 H D 79 L D ABG HCO3 35 H 36 H ABG O2 Saturation 100 H 96 ABG Base Excess 10 H 9 H VBG pH VBG pCO2 VBG pO2 VBG Base Excess Quality Measures Quality Measures VTE prophylaxis Assessment & Plan Assessment Current Active Medications: Generic Name Dose Route Start Last Admin Trade Name Freq PRN Reason Stop Dose Admin Acetaminophen 650 mg 02/26/25 01:25 Acetaminophen 325 Mg Tablet PO 03/28/25 01:24 Q6H PRN Fever >100.3 Acetaminophen 650 mg 02/26/25 01:25 Acetaminophen 325 Mg Tablet PO 03/28/25 01:24 Q6H PRN PAIN SCALE 1-3 (mild Albuterol/Ipratropium 3 ml 02/26/25 11:25 Albuterol/Ipratropium (Duoneb) Rt Christine 3 Ml Nebu INH 03/28/25 11:24 Q2HR PRN SHORTNESS OF BREATH OR WHEEZE Amlodipine Besylate 10 mg 02/26/25 09:00 03/04/25 08:54 Amlodipine Besylate 5 Mg Tablet PO 03/28/25 08:59 10 mg QDAY ÁNGEL Administration Artificial Tears 0 drop 02/27/25 13:36 Artificial Tears 225 Drop/15 Ml Btl BOTH EYES 03/29/25 13:35 PRN PRN TO KEEP EYES MOIST Aspirin 81 mg 02/26/25 09:00 03/04/25 08:54 Aspirin Ec 81 Mg Tabec PO 03/28/25 08:59 81 mg QDAY ÁNGEL Administration Atorvastatin Calcium 40 mg 02/26/25 21:00 03/03/25 20:48 Atorvastatin Calcium 20 Mg Tablet PO 03/28/25 20:59 40 mg HS ÁNGEL Administration Carvedilol 3.125 mg 03/02/25 21:00 03/04/25 08:54 Carvedilol 3.125 Mg Tablet PO 04/01/25 20:59 3.125 mg BID ÁNGEL Administration Protocol Dextrose 50 ml 02/26/25 05:51 Dextrose 50%-Water Inj 50 Ml Syringe IV 03/28/25 05:50 Q15MIN PRN BG <50 OR BG <70 & pt unresponsive Dextrose 25 ml 02/26/25 05:51 02/26/25 13:11 Dextrose 50%-Water Inj 50 Ml Syringe IV 03/28/25 05:50 25 ml Q15MIN PRN Administration BG 50-70 responsive npo pt Enoxaparin Sodium 60 mg 03/01/25 21:00 03/04/25 08:53 Enoxaparin Sod Inj 60 Mg/0.6 Ml Syringe SC 03/15/25 20:59 60 mg BID ÁNGEL Administration Glucagon 1 mg 02/26/25 05:51 Glucagon Inj 1 Mg Vial IM Q15MIN PRN BG <70, and no IV access Metronidazole 500 mg in 100 mls @ 200 mls/hr 03/03/25 10:01 03/04/25 13:42 Flagyl 500 Mg Iv IV 03/04/25 23:55 200 mls/hr Q8HR ÁNGEL Administration Ciprofloxacin/Dextrose 400 mg in 200 mls @ 200 mls/hr 03/03/25 10:01 03/04/25 08:53 Cipro Ivpb IV 03/04/25 23:55 200 mls/hr Q12HR ÁNGEL Administration Insulin Human Lispro 0 unit 02/28/25 17:00 03/04/25 11:40 Insulin Lispro (Admelog) 1 Unit/0.01 Ml Unit SC 03/30/25 16:59 1 unit ACHS ÁNGEL Administration Protocol Levothyroxine Sodium 125 mcg/ 175 mcg 02/27/25 06:00 03/04/25 05:04 Levothyroxine Sodium 50 mcg PO 03/29/25 05:59 175 mcg ACBR ÁNGEL Administration Losartan Potassium 25 mg 02/26/25 09:00 03/04/25 08:54 Losartan Potassium 25 Mg Tablet PO 03/28/25 08:59 25 mg QDAY ÁNGEL Administration Ondansetron HCl 4 mg 02/26/25 01:25 02/26/25 01:54 Ondansetron Inj 2 Mg/Ml Inj 2 Ml IVP 03/28/25 01:24 4 mg Q6H PRN Administration NAUSEA OR VOMITING Protocol Plan 54-year-old female with past medical history of morbid obesity, hyperlipidemia, hypertension, T2DM, cholecystectomy, [place], hypothyroidism, MRSA + periorbital cellulitis, anemia who presented to the ED on 02/25 with epigastric and left upper and lower quadrant abdominal pain x 3 days. Admitted for acute hypercapneic respiratory failure, diverticulitis. #Acute hypoxic hypercapnic respiratory failure (resolving) #Obesity Hypoventilation Syndrome (OHS) #Obstructive Sleep Apnea (MELISSA) Respiratory failure likely secondary to obesity hypoventilation syndrome due to MELISSA The patient's mentation has significantly improved since admission, likely in response to the initiation of BiPAP therapy. There is a marked improvement in hypercapnia as well. Most recent ABG shows pH 7.46, pCO2 49, pO2 120 Patient was trialed off BiPAP however oxygenation dropped to the 70s so BiPAP was back on nights/sleep time, and HF NC at other times. Plan: - Weaned off of HFNC - BiPAP/CPAP when sleeping - encourage incentive spirometry - DuoNeb RT Q2h PRN - Ambulate 3 times daily, physical therapy and mobilization. - Avoid sedating medications. - Pulm consulted, Dr. Wolff, appreciate recs - Patient will need home BiPAP/CPAP upon discharge. - Outpatient sleep study. - Up to chair 3 times daily as tolerated - Possible discharge to SNF for further rehabilitation #Diverticulosis #Sigmoid diverticulitis Patient is afebrile. Lactic acid improved from 1.3 to 0.7, and lipase is within normal limits. CT A/P without contrast showed colonic diverticulosis with abnormal small bowel loops, wall thickening, and inflammatory changes, suggesting acute diverticulitis of the sigmoid colon. CT A/P also revealed hepatocellular disease with irregular liver contour, a 19 mm uterine fundal mass, and mild nodular thickening of the adrenal glands. CTA A/P confirmed diverticulosis of the colon, thickening of the cecum and ascending colon, and inflammatory changes. No evidence of bowel obstruction, free fluid, free air, or abscess. Right adrenal nodule 2.2 cm noted. Given ceftriaxone 1 g IV, morphine 4 mg IV, Zofran 4 mg IV, 500 mL NS, metronidazole 500 mg IV. ? Blood ctx were negative at 48h point in /2 bottles. ? Pt completed 5 day course of Zosyn 3.375g TID 03/02/2025 Plan: - Ciprofloxacin IV 400 mg twice daily (03/03 -03/04) - Flagyl IV 500 mg 3 times daily (03/03 -03/04) - Bowel rest and pain management. #Pericardial effusion, chronic #c/f pericarditis Pt denies chest pain, afebrile, hypertensive Seen on CTA a/p. No aortic dissection seen on CTA prelim read DDX: post-KS, hypothyroidism, viral, malignancy, inflammatory/autoimmune Echo done 02/26 showed pericardium appears normal. There is small to moderate circumferential pericardial effusion. No evidence of cardiac tamponade. Fribrogenous exudate on LV and RV velez indicating chronic effusion. Viral panel with influenza A, B, and COVID came back negative. Plan: - Cardiology consulted, Dr. Page - No need for pericardiocentesis at this time as there is no concern for tamponade - Consider NSAID therapy if patient develops chest pain #Hypertension, chronic #Hypertensive urgency - resolved 188/105 (HR 88) --> 134/93, HR 69 Plan: - Amlodipine 10 mg daily (listed as home med) - Losartan 25 mg daily (home dose 50mg daily) - Resumed carvedilol PO 3.125mg bid #T2DM A1c 6.8 Plan: - Target blood sugar of 140-180 while hospitalized. - SSI #Nodular Thickening of Rt adrenal gland findings of CT imaging 02/26/2025 - Recommend outpatient follow-up with evaluation of labs for metanephrines, free cortisol, renin/aldosterone levels - elective MRI outpatient for further workup and management. #Hypothyroidism Patient has severely uncontrolled hypothyroidism likely secondary to medication noncompliance. TSH 59.14, T4 0.17 Plan: - Levothyroxine 175 mcg daily - Recommend outpatient endocrine follow-up #Hyperlipidemia #Hx of KS - Continue Aspirin 81 mg daily, atorvastatin 40 mg daily (listed as home med) Health Maintenance: Dispo: Admit to tele for w/u acute hypercapneic respiratory failure, diverticulitis. PT recommended homeheatlh PT upon dc to home for home safety (decrease risk of fall, increase MM strength, and improve mobility). Diet: Special diet VTE ppx: Lovenox 60mg bid Pain mgmt: Tylenol, morphine 2 mg IV q6h PRN Code status: Full Plan of care discussed with attending Dr. Mathew. Rigo Muse MD PGY?2 Attending Provider Attestation/Addendum I have discussed and was present for the essential components of the history, physical examination, diagnosis, and treatment plan with the resident. I agree with the patient's care as documented by the resident and amended herein by me. Merritt Mathew DO. Although this document has been carefully reviewed, there may still be some phonetic and other typographical errors. These errors are purely grammatical due to imperfections in the software program and should not be construed in any way to compromise the substance of the patient's medical care during this visit.
[2025-03-04] MEDS: ATORVASTATIN CALCIUM 20 MG TABLET 40 MG PO (20:15)
[2025-03-05] VITALS (19 sets, daily range): BP systolic 127–152; BP diastolic 67–84; PULSE 21–84; RESP 17–26; TEMP 36.1–36.6; O2SAT 94–98; BMI 13.0
--- NOTE | 2025-03-05 02:50 | PC.NURSE ---
Pt transferred from Tele room 264 to room 370, pt is alert and oriented, on Bipap at night for MELISSA. Pt is not on resp distress noted. Pt will connected to [employer].
[2025-03-05] MEDS: LEVOTHYROXINE SODIUM 125 MCG, LEVOTHYROXINE SODIUM 50 MCG 175 MCG PO (05:04)
[2025-03-05 06:08] LABS: Basophils # (Auto) 0.0 Thou/mm3 (0.0-0.2); Basophils % (Auto) 0 % (0-2.5); Eosinophils # (Auto) 0.4 Thou/mm3 (0.0-0.5); Eosinophils % (Auto) 3 % (0-10); Hematocrit 35.3 % (36.0-46.0); Hemoglobin 11.7 g/dL (12.0-16.0); Immature Granulocytes Auto 0.12 Thou/mm3 (0.00-0.00); Lymphocytes # (Auto) 1.9 Thou/mm3 (1.0-4.8); Lymphocytes % (Auto) 14 % (10-50); Mean Corpuscular HGB Conc 33.1 g/dl (31.0-37.0); Mean Corpuscular Hemoglobin 32.8 pg (25.0-35.0); Mean Corpuscular Volume 99 fL (80-100); Monocytes # (Auto) 0.6 Thou/mm3 (0.0-0.8); Monocytes % (Auto) 5 % (0-12); Neutrophils # (Auto) 10.7 Thou/mm3 (1.8-7.7); Neutrophils % (Auto) 77 % (37-80); Nucleated Red Blood Cell # 0.00 Thou/mm3 (0.00-0.00); Nucleated Red Blood Cell % 0 /100 WBC (0); Platelet Count 189 Thou/mm3 (140-440); RDW Standard Deviation 50.0 fL (36.4-46.3); Red Blood Count 3.57 Miln/mm3 (4.00-5.20); White Blood Count 13.8 Thou/mm3 (3.6-11.0)
[2025-03-05 06:46] LABS: Alanine Aminotransferase < 7 U/L (10-49); Albumin, Serum 3.9 gm/dL (3.5-5.0); Albumin/Globulin Ratio 1.7 (1.2-2.2); Alkaline Phosphatase 43 U/L (46-116); Anion Gap 7 (7-16); Aspartate Amino Transferase 17 U/L (0-34); BUN/Creatinine Ratio 9 Ratio (12-20); Bilirubin,Total 0.6 mg/dL (0.3-1.2); Blood Urea Nitrogen 7 mg/dL (9-23); Calcium 9.5 mg/dL (8.3-10.6); Calcium (Corrected) 9.6 mg/dL (8.5-10.1); Carbon Dioxide 34.1 mMol/L (20.0-31.0); Chloride 101 mMol/L (98-107); Creatinine (Component) 0.8 mg/dL (0.6-1.3); Estimated Creatinine Clearance 114.6 mL/min (>60); Globulin 2.3 gm/dL (2.3-3.5); Glucose 105 mg/dL (74-106); Magnesium 1.7 mg/dL (1.6-2.6); Osmolality,Calculated 281 (275-295); Phosphorous 2.9 mg/dL (2.4-5.1); Potassium 3.4 mMol/L (3.4-5.1); Sodium 142 mMol/L (136-145); Total Protein 6.2 gm/dL (5.7-8.2); eGFR > 60 See Note
[2025-03-05] MEDS: ENOXAPARIN SOD INJ 60 MG/0.6 ML SYRINGE SC ×2 (08:34→20:47)
[2025-03-05] MEDS: ASPIRIN EC 81 MG TABEC PO (08:36)
[2025-03-05] MEDS: LOSARTAN POTASSIUM 25 MG TABLET PO (08:36)
--- NOTE | 2025-03-05 09:48 | PC.SS ---
Addendum entered by Nahed Recinos 03/05/25 12:15: SS has re sent PT notes to [facility] using [facility]. Original Note: Follow up note: SS has sent updated Bipap setting to [facility] using [facility]. SS has communicated with Alka from [facility] and is aware pt is ready for d/c.
--- NOTE | 2025-03-05 15:03 | PD.RESDS ---
Planned Discharge Date 03/05/25 DS: Providers Provider Date of admission: 02/26/25 05:21 Primary care physician: Physician No Primary/Family Admitting Provider: Humberto Coombs MD Attending Provider on Admission: Connor Mathew DO Consults: 02/26/25 11:44 Consult to Cardiology Stat Comment: Consulting Provider: Monie Jiménez 02/26/25 14:35 Referral Registered Dietitian Routine Comment: [facility] Referral - Knowledge Deficit Routine Comment: Positive screening for knowledge deficit needs. [facility] Referral - Nutrition Routine Comment: Positive screening for nutrition needs. 02/27/25 13:37 Consult to Pulmonology Stat Comment: On BiPap, difficulty weaning off Consulting Provider: Tadeo Guerin 02/28/25 08:09 Referral Physical Therapy Routine Comment: Physician Instructions: 03/01/25 12:28 Consult to Pulmonology Routine Comment: MELISSA/OHS, Hypoxia Consulting Provider: Mayank Chatman I Attending Provider on DC: Nilsa Hercules DO Discharging Provider: Nilsa Hercules DO Hospital Course Hospital Course Hospital course: No overnight events. Patient seen and examined at bedside, resting comfortably. Patient titrated down to 1 L LPM via nasal cannula. Maintains good saturation 92%. Goal to get patient up to bed 3 times daily. Durand catheter exchanged for PureWick. Possible discharge to SNF for further rehab. Time Spent with Patient Time attestation: Total time spent providing and/or coordinating discharge services: Exam Vital Signs Temp Pulse Resp BP Pulse Ox O2 Del Method O2 Flow Rate 97.7 F 21 L 22 H 127/76 96 Nasal Cannula 3 03/05/25 11:35 03/05/25 11:35 03/05/25 11:35 03/05/25 11:35 03/05/25 11:35 03/05/25 11:35 03/05/25 11:35 FiO2 30 03/05/25 08:00 Discharge Plan Plan Patient Disposition: Xfer Skilled Nsg Fac (SNF) Patient condition on transfer: Stable Care Plan Goals: You have been started on the following medications: - Synthroid 175 mcg once daily - aspirin 81 mg once daily Please continue all other medications as previously prescribed. Please follow up with your primary care doctor in 7-10 days. Please seek referral to [facility] for evaluation of nodular thickening right adrenal gland. Please return to ED if you develop new or worsening symptoms. You are to be sent on BiPAP with the following settings: BiAP: 24 breath/min, IPAP 22, EPAP 10, FiO2 30%. To be used at night. Prescriptions/Referrals Prescriptions/Med Rec: New levothyroxine 175 mcg Tablet 175 mcg PO ACBR 30 Days Qty: 30 2RF aspirin 81 mg Tablet,Delayed Release (Dr/Ec) 81 mg PO QDAY 30 Days Qty: 30 2RF Continued carvedilol 3.125 mg Tablet 3.125 mg PO BID Qty: 60 0RF acetaminophen [Mapap (acetaminophen)] 325 mg Tablet 650 mg PO Q6H PRN (Reason: Fever >101.5) Qty: 20 0RF metformin 500 mg Tablet 500 mg PO BID ferrous sulfate 325 mg (65 mg iron) tablet 325 mg PO .3 times per week Patient Comments: TAKE 1 TABLET BY MOUTH 3 TIMES A WEEK furosemide 20 mg tablet 20 mg PO QDAY Patient Comments: TAKE 1 TABLET BY MOUTH EVERY DAY FOR 90 DAYS cholecalciferol (vitamin D3) 125 mcg (5,000 unit) tablet 5,000 unit PO .weekly ezetimibe 10 mg tablet 10 mg PO QDAY Patient Comments: TAKE 1 TABLET BY MOUTH EVERY DAY FOR 90 DAYS losartan 50 mg tablet 50 mg PO QDAY Patient Comments: TAKE 1 TABLET BY MOUTH EVERY DAY rosuvastatin 40 mg tablet 40 mg PO DAILY Patient Comments: TAKE 1 TABLET BY MOUTH EVERY DAY FOR 90 DAYS amlodipine 10 mg tablet 10 mg PO DAILY Patient Comments: TAKE 1 TABLET BY MOUTH EVERY DAY FOR 90 DAYS Referrals: No Primary/Family,Physician [Primary Care Provider] Patient/Caregiver Discharge Instructions Discharge Activity: activity as tolerated Education Materials: What Is a BPAP?, Using a BPAP Print Language: Indian Stand Alone Forms: [facility] Award Info., Patient Portal Info Letter Discharge Order Discharge Orders: Discharge (Routine); Ordered 03/05/25 Ordered By: Rigo Muse MD Attestestation Attestation I have discussed and was present for the essential components of the discharge history, physical examination, diagnosis, and discharge treatment plan with the resident. I agree with the patient's discharge care as documented by the resident and amended herein by me. Merritt Mathew DO. Patient stable to discharge to SNF, should return to the emergency department for any worsening or persistent symptoms. See resident note above for additional details in regards to hospital admission. Although this document has been carefully reviewed, there may still be some phonetic and other typographical errors. These errors are purely grammatical due to imperfections in the software program and should not be construed in any way to compromise the substance of the patient's medical care during this visit.
[2025-03-05] MEDS: INSULIN LISPRO (AdmeLOG) 1 UNIT/0.01 ML UNIT SC (17:18)
--- NOTE | 2025-03-05 19:00 | PC.NURSE ---
Per Hannah RN, per has a DC order but SNF cant accept pt DT high setting on BiPAP.
[2025-03-05 19:07] LABS: Base Excess, Venous 9 (-3-3); O2 Saturation, Venous 86 % (96-97); PCO2, Venous 54 mmHg (36-56); PO2, Venous 49 mmHg (15-58); pH, Venous 7.42 (7.33-7.66)
[2025-03-05] MEDS: ATORVASTATIN CALCIUM 20 MG TABLET 40 MG PO (20:46)
--- NOTE | 2025-03-05 21:12 | ESPR_ITS ---
<Statement entered by Bright Clark MD - 03/06/25 16:56> Patient was seen and examined at bedside. I agree on the assessment and plan on this note as documented by resident Nilsa Hercules DO PGY1. 54-year-old female with past medical history as below seen at bedside, BiPAP settings adjusted, IPAP 18, EPAP 9, respiratory rate 24, FiO2 0.3, VBG obtained after shows pCO2 54, patient tolerating settings well. Setting adjusted for senior care placement to [facility], pending placement otherwise stable completed antibiotic treatment. Case discussed with attending Dr. Connor Fitzgerald MD PGY-2 Documentation for date of: 03/05/25 Subjective Subjective Interval history: Patient seen and examined at bedside, resting comfortably. No acute events took place overnight. Patient titrated down to 1 L LPM via nasal cannula. Maintains good saturation 92%. PT patient seen awake, saturating 94% on 3 L via NC. She denies shortness of breath, chest pain, fever, or abdominal pain. Pending discharge to SNF for further rehab. SNF facility would not receive the patient as current BiPAP settings were deemed too high. Exam Vital Signs Temp Pulse Resp BP Pulse Ox O2 Del Method O2 Flow Rate 97.5 F 73 20 152/84 H 97 Nasal Cannula 3 03/05/25 16:00 03/05/25 20:47 03/05/25 19:24 03/05/25 20:47 03/05/25 19:24 03/05/25 16:00 03/05/25 19:24 FiO2 30 03/05/25 19:17 Narrative Exam General: No acute distress, morbidly obese Eye: PERRL, EOMI HENT: Normocephalic, atraumatic, normal hearing, moist oral mucosa, hoarse voice (chronic) Neck: Supple, non-tender, no JVD, no lymphadenopathy Lungs: Clear to auscultation bilaterally but difficult to hear breath sounds, non-labored respirations, symmetric chest rise, no use of accessory muscles Heart: Normal S1 and S2, no S3 or S4 appreciated. Normal rate and regular rhythm, no murmurs, rubs gallops. 1+ b/l edema Abdomen: Soft, nondistended. No tenderness to palpation. Musculoskeletal: Normal range of motion and strength, no tenderness or swelling Skin: Skin is warm, dry, no rashes or lesions. Venous stasis dermatitis b/l LE Neurologic: Alert, awake and oriented x3. CN II-XII grossly intact. Able to follow commands but somnolent. No focal neuro deficits. No signs of meningeal irritation noted. Psychiatric: Cooperative, appropriate mood and affect Objective Labs 03/06/25 05:44 03/06/25 05:44 Labs: Laboratory Results - last 24 hr 03/05/25 03/05/25 05:46 18:42 WBC 13.8 H RBC 3.57 L Hgb 11.7 L Hct 35.3 L MCV 99 MCH 32.8 MCHC 33.1 RDW Std Deviation 50.0 H Plt Count 189 Neut % (Auto) 77 Lymph % (Auto) 14 [place] % (Auto) 5 Eos % (Auto) 3 Baso % (Auto) 0 Neut # (Auto) 10.7 H Lymph # (Auto) 1.9 [place] # (Auto) 0.6 Eos # (Auto) 0.4 Baso # (Auto) 0.0 Immature Gran # (Auto) 0.12 H Absolute Nucleated RBC 0.00 Immature Gran % 1 H Nucleated RBC % 0 VBG pH 7.42 VBG pCO2 54 VBG pO2 49 VBG O2 Sat (K[place]winder) 86 L VBG Base Excess 9 H Sodium 142 Potassium 3.4 Chloride 101 Carbon Dioxide 34.1 H Anion Gap 7 BUN 7 L Creatinine 0.8 Estim Creat Clear Calc 114.6 eGFR > 60 BUN/Creatinine Ratio 9 L Glucose 105 Calculated Osmolality 281 Calcium 9.5 Corrected Calcium 9.6 Phosphorus 2.9 Magnesium 1.7 Total Bilirubin 0.6 AST 17 ALT < 7 L Alkaline Phosphatase 43 L Total Protein 6.2 Albumin 3.9 Globulin 2.3 Albumin/Globulin Ratio 1.7 ABG Interpretation ABG results: 02/26/25 02/26/25 02/26/25 02:53 04:39 06:13 ABG pH 7.07 L* 7.17 L* D 7.10 L* ABG pCO2 116 H* 98 H* D 117 H* D ABG pO2 96 140 H D 102 D ABG HCO3 34 H 36 H 36 H ABG O2 Saturation 95 99 H 96 ABG Base Excess 0 4 H 2 VBG pH VBG pCO2 VBG pO2 VBG Base Excess 10/02/26/25 02/26/25 08:33 11:37 11:39 ABG pH 7.21 L D 7.25 L ABG pCO2 84 H* D 78 H* ABG pO2 372 H D 223 H D ABG HCO3 33 H 34 H ABG O2 Saturation 100 H 100 H ABG Base Excess 2 4 H VBG pH 7.29 L VBG pCO2 61 H VBG pO2 134 H VBG Base Excess 1 02/26/25 02/26/25 02/27/25 14:20 19:23 02:24 ABG pH 7.29 L 7.30 L 7.38 ABG pCO2 71 H* 71 H* 61 H D ABG pO2 169 H D 191 H D 89 D ABG HCO3 34 H 35 H 36 H ABG O2 Saturation 100 H 100 H 98 ABG Base Excess 5 H 6 H 9 H VBG pH VBG pCO2 VBG pO2 VBG Base Excess 02/27/25 02/28/25 03/05/25 09:26 08:42 18:42 ABG pH 7.46 H 7.39 ABG pCO2 49 H D 60 H D ABG pO2 120 H D 79 L D ABG HCO3 35 H 36 H ABG O2 Saturation 100 H 96 ABG Base Excess 10 H 9 H VBG pH 7.42 VBG pCO2 54 VBG pO2 49 VBG Base Excess 9 H Quality Measures Quality Measures VTE prophylaxis Assessment & Plan Assessment Current Active Medications: Generic Name Dose Route Start Last Admin Trade Name Freq PRN Reason Stop Dose Admin Acetaminophen 650 mg 02/26/25 01:25 Acetaminophen 325 Mg Tablet PO 03/28/25 01:24 Q6H PRN Fever >100.3 Acetaminophen 650 mg 02/26/25 01:25 Acetaminophen 325 Mg Tablet PO 03/28/25 01:24 Q6H PRN PAIN SCALE 1-3 (mild Albuterol/Ipratropium 3 ml 02/26/25 11:25 Albuterol/Ipratropium (Duoneb) Rt Christine 3 Ml Nebu INH 03/28/25 11:24 Q2HR PRN SHORTNESS OF BREATH OR WHEEZE Amlodipine Besylate 10 mg 02/26/25 09:00 03/05/25 08:36 Amlodipine Besylate 5 Mg Tablet PO 03/28/25 08:59 10 mg QDAY ÁNGEL Administration Artificial Tears 0 drop 02/27/25 13:36 Artificial Tears 225 Drop/15 Ml Btl BOTH EYES 03/29/25 13:35 PRN PRN TO KEEP EYES MOIST Aspirin 81 mg 02/26/25 09:00 03/05/25 08:36 Aspirin Ec 81 Mg Tabec PO 03/28/25 08:59 81 mg QDAY ÁNGEL Administration Atorvastatin Calcium 40 mg 02/26/25 21:00 03/05/25 20:46 Atorvastatin Calcium 20 Mg Tablet PO 03/28/25 20:59 40 mg HS ÁNGEL Administration Carvedilol 3.125 mg 03/02/25 21:00 03/05/25 20:47 Carvedilol 3.125 Mg Tablet PO 04/01/25 20:59 3.125 mg BID ÁNGEL Administration Protocol Dextrose 50 ml 02/26/25 05:51 Dextrose 50%-Water Inj 50 Ml Syringe IV 03/28/25 05:50 Q15MIN PRN BG <50 OR BG <70 & pt unresponsive Dextrose 25 ml 02/26/25 05:51 02/26/25 13:11 Dextrose 50%-Water Inj 50 Ml Syringe IV 03/28/25 05:50 25 ml Q15MIN PRN Administration BG 50-70 responsive npo pt Enoxaparin Sodium 60 mg 03/01/25 21:00 03/05/25 20:47 Enoxaparin Sod Inj 60 Mg/0.6 Ml Syringe SC 03/15/25 20:59 60 mg BID ÁNGEL Administration Glucagon 1 mg 02/26/25 05:51 Glucagon Inj 1 Mg Vial IM Q15MIN PRN BG <70, and no IV access Insulin Human Lispro 0 unit 02/28/25 17:00 03/05/25 20:16 Insulin Lispro (Admelog) 1 Unit/0.01 Ml Unit SC 03/30/25 16:59 Not Given ACHS ÁNGEL Protocol Levothyroxine Sodium 125 mcg/ 175 mcg 02/27/25 06:00 03/05/25 05:04 Levothyroxine Sodium 50 mcg PO 03/29/25 05:59 175 mcg ACBR ÁNGEL Administration Losartan Potassium 25 mg 02/26/25 09:00 03/05/25 08:36 Losartan Potassium 25 Mg Tablet PO 03/28/25 08:59 25 mg QDAY ÁNGEL Administration Ondansetron HCl 4 mg 02/26/25 01:25 02/26/25 01:54 Ondansetron Inj 2 Mg/Ml Inj 2 Ml IVP 03/28/25 01:24 4 mg Q6H PRN Administration NAUSEA OR VOMITING Protocol Plan 54-year-old female with past medical history of morbid obesity, hyperlipidemia, hypertension, T2DM, cholecystectomy, VA, hypothyroidism, MRSA + periorbital cellulitis, anemia who presented to the ED on 02/25 with epigastric and left upper and lower quadrant abdominal pain x 3 days. Admitted for acute hypercapneic respiratory failure, diverticulitis. #Acute hypoxic hypercapnic respiratory failure (resolving) #Obesity Hypoventilation Syndrome (OHS) #Obstructive Sleep Apnea (MELISSA) Respiratory failure likely secondary to obesity hypoventilation syndrome due to MELISSA The patient's mentation has significantly improved since admission, likely in response to the initiation of BiPAP therapy. There is a marked improvement in hypercapnia as well. Most recent ABG shows pH 7.46, pCO2 49, pO2 120 Patient was trialed off BiPAP however oxygenation dropped to the 70s so BiPAP was back on nights/sleep time, and HF NC at other times. Plan: - Weaned off of HFNC - BiPAP/CPAP when sleeping - encourage incentive spirometry - DuoNeb RT Q2h PRN - Ambulate 3 times daily, physical therapy and mobilization. - Avoid sedating medications. - Pulm consulted, Dr. Wolff, appreciate recs - Patient will need home BiPAP/CPAP upon discharge. - Outpatient sleep study. - Up to chair 3 times daily as tolerated - Possible discharge to SNF for further rehabilitation #Diverticulosis #Sigmoid diverticulitis, resolved Patient is afebrile. Lactic acid improved from 1.3 to 0.7, and lipase is within normal limits. CT A/P without contrast showed colonic diverticulosis with abnormal small bowel loops, wall thickening, and inflammatory changes, suggesting acute diverticulitis of the sigmoid colon. CT A/P also revealed hepatocellular disease with irregular liver contour, a 19 mm uterine fundal mass, and mild nodular thickening of the adrenal glands. CTA A/P confirmed diverticulosis of the colon, thickening of the cecum and ascending colon, and inflammatory changes. No evidence of bowel obstruction, free fluid, free air, or abscess. Right adrenal nodule 2.2 cm noted. Given ceftriaxone 1 g IV, morphine 4 mg IV, Zofran 4 mg IV, 500 mL NS, metronidazole 500 mg IV. ? Blood ctx were negative at 48h point in 2/2 bottles. ? Pt completed 5 day course of Zosyn 3.375g TID 03/02/2025 - Ciprofloxacin IV 400 mg twice daily (03/03 -03/04) -complete - Flagyl IV 500 mg 3 times daily (03/03 -03/04) -complete - Bowel rest and pain management. #Pericardial effusion, chronic #c/f pericarditis Pt denies chest pain, afebrile, hypertensive Seen on CTA a/p. No aortic dissection seen on CTA prelim read DDX: post-VA, hypothyroidism, viral, malignancy, inflammatory/autoimmune Echo done 02/26 showed pericardium appears normal. There is small to moderate circumferential pericardial effusion. No evidence of cardiac tamponade. Fribrogenous exudate on LV and RV velez indicating chronic effusion. Viral panel with influenza A, B, and COVID came back negative. Plan: - Cardiology consulted, Dr. Page - No need for pericardiocentesis at this time as there is no concern for tamponade - Consider NSAID therapy if patient develops chest pain #Hypertension, chronic #Hypertensive urgency - resolved 188/105 (HR 88) --> 134/93, HR 69 Plan: - Amlodipine 10 mg daily (listed as home med) - Losartan 25 mg daily (home dose 50mg daily) - Resumed carvedilol PO 3.125mg bid #T2DM A1c 6.8 Plan: - Target blood sugar of 140-180 while hospitalized. - SSI #Nodular Thickening of Rt adrenal gland findings of CT imaging 02/26/2025 - Recommend outpatient follow-up with evaluation of labs for metanephrines, free cortisol, renin/aldosterone levels - elective MRI outpatient for further workup and management. #Hypothyroidism Patient has severely uncontrolled hypothyroidism likely secondary to medication noncompliance. TSH 59.14, T4 0.17 Plan: - Levothyroxine 175 mcg daily - Recommend outpatient endocrine follow-up #Hyperlipidemia #Hx of VA - Continue Aspirin 81 mg daily, atorvastatin 40 mg daily (listed as home med) Health Maintenance: Dispo: Admit to tele for w/u acute hypercapneic respiratory failure, diverticulitis. PT recommended homeheatlh PT upon dc to home for home safety (decrease risk of fall, increase MM strength, and improve mobility). Diet: Special diet VTE ppx: Lovenox 60mg bid Pain mgmt: Tylenol, morphine 2 mg IV q6h PRN Code status: Full This case was discussed with my attending physician, Dr. Mathew, and senior resident, Dr Clark. Nilsa Hercules DO PGY I Attending Provider Attestation/Addendum I have discussed and was present for the essential components of the history, physical examination, diagnosis, and treatment plan with the resident. I agree with the patient's care as documented by the resident and amended herein by me. Merritt Mathew DO. Although this document has been carefully reviewed, there may still be some phonetic and other typographical errors. These errors are purely grammatical due to imperfections in the software program and should not be construed in any way to compromise the substance of the patient's medical care during this visit.
[2025-03-06] VITALS (16 sets, daily range): BP systolic 113–139; BP diastolic 64–85; PULSE 63–97; RESP 19–26; TEMP 36.2–36.4; O2SAT 94–98; BMI 63.2
[2025-03-06] MEDS: LEVOTHYROXINE SODIUM 125 MCG, LEVOTHYROXINE SODIUM 50 MCG 175 MCG PO (05:07)
[2025-03-06 06:26] LABS: Basophils # (Auto) 0.1 Thou/mm3 (0.0-0.2); Basophils % (Auto) 0 % (0-2.5); Eosinophils # (Auto) 0.4 Thou/mm3 (0.0-0.5); Eosinophils % (Auto) 3 % (0-10); Hematocrit 34.6 % (36.0-46.0); Hemoglobin 11.6 g/dL (12.0-16.0); Immature Granulocytes Auto 0.10 Thou/mm3 (0.00-0.00); Lymphocytes # (Auto) 2.1 Thou/mm3 (1.0-4.8); Lymphocytes % (Auto) 15 % (10-50); Mean Corpuscular HGB Conc 33.5 g/dl (31.0-37.0); Mean Corpuscular Hemoglobin 33.6 pg (25.0-35.0); Mean Corpuscular Volume 100 fL (80-100); Monocytes # (Auto) 0.7 Thou/mm3 (0.0-0.8); Monocytes % (Auto) 5 % (0-12); Neutrophils # (Auto) 10.3 Thou/mm3 (1.8-7.7); Neutrophils % (Auto) 76 % (37-80); Nucleated Red Blood Cell # 0.00 Thou/mm3 (0.00-0.00); Nucleated Red Blood Cell % 0 /100 WBC (0); Platelet Count 201 Thou/mm3 (140-440); RDW Standard Deviation 51.8 fL (36.4-46.3); Red Blood Count 3.45 Miln/mm3 (4.00-5.20); White Blood Count 13.6 Thou/mm3 (3.6-11.0)
[2025-03-06 06:57] LABS: Alanine Aminotransferase 8 U/L (10-49); Albumin, Serum 3.9 gm/dL (3.5-5.0); Albumin/Globulin Ratio 1.4 (1.2-2.2); Alkaline Phosphatase 45 U/L (46-116); Anion Gap 8 (7-16); Aspartate Amino Transferase 13 U/L (0-34); BUN/Creatinine Ratio 9 Ratio (12-20); Bilirubin,Total 0.6 mg/dL (0.3-1.2); Blood Urea Nitrogen 7 mg/dL (9-23); Calcium 9.5 mg/dL (8.3-10.6); Calcium (Corrected) 9.6 mg/dL (8.5-10.1); Carbon Dioxide 33.8 mMol/L (20.0-31.0); Chloride 100 mMol/L (98-107); Creatinine (Component) 0.8 mg/dL (0.6-1.3); Estimated Creatinine Clearance 114.9 mL/min (>60); Globulin 2.7 gm/dL (2.3-3.5); Glucose 108 mg/dL (74-106); Magnesium 1.7 mg/dL (1.6-2.6); Osmolality,Calculated 282 (275-295); Phosphorous 3.0 mg/dL (2.4-5.1); Potassium 3.8 mMol/L (3.4-5.1); Sodium 142 mMol/L (136-145); Total Protein 6.6 gm/dL (5.7-8.2); eGFR > 60 See Note
[2025-03-06] MEDS: Magnesium Sulfate 2 GM Ivpb 2 GM/50 ML BAG IV (08:46)
[2025-03-06] MEDS: ASPIRIN EC 81 MG TABEC PO (09:43)
[2025-03-06] MEDS: LOSARTAN POTASSIUM 25 MG TABLET PO (09:43)
[2025-03-06] MEDS: ENOXAPARIN SOD INJ 60 MG/0.6 ML SYRINGE SC ×2 (09:43→20:35)
--- NOTE | 2025-03-06 11:29 | PC.SS ---
Addendum entered by Nahed Recinos 03/06/25 15:24: SS has sent d/c orders which included bipap settings to [facility] using [facility]. Original Note: SS spoke to Alka from [facility] who has received updated Bipap settings. Alka is aware resident physicians are agreeable to speak with their respiratory manufacturer's representative if needed. Per Alka, they have received insurance authorization and will after 14 days. Pt is aware.
--- NOTE | 2025-03-06 16:58 | ESPR_ITS ---
<Statement entered by Rigo Muse MD - 03/07/25 16:23> Patient seen and examined at bedside. I discussed and supervised with the international accounting manager physician who took care of this patient. I personally saw and examined the patient. I agree with most of the assessment and plan. Plan of care discussed with attending Dr. Mathew. Rigo Muse MD PGY-2 Documentation for date of: 03/06/25 Subjective Subjective Interval history: Patient seen and examined at bedside, resting comfortably. No acute events took place overnight. Patient satting 97% on 3 L via NC. She denies shortness of breath, chest pain, fever, or abdominal pain. Pending discharge to SNF for further rehab. SNF facility would not receive the patient as current BiPAP settings were deemed too high with BiPAP setting expiratory pressure at 9. Patient able to generate BM. CBC WBC 13.6, CMP carbon dioxide 34 K+ 3.8 and Mg 1.7, both repleted Exam Vital Signs Temp Pulse Resp BP Pulse Ox O2 Del Method O2 Flow Rate 97.6 F 93 20 113/69 96 Nasal Cannula 3 03/06/25 11:12 03/06/25 14:22 03/06/25 14:22 03/06/25 11:12 03/06/25 14:22 03/06/25 11:12 03/06/25 14:22 FiO2 2 03/06/25 07:26 Narrative Exam General: No acute distress, morbidly obese Eye: PERRL, EOMI HENT: Normocephalic, atraumatic, normal hearing, moist oral mucosa, hoarse voice (chronic) Neck: Supple, non-tender, no JVD, no lymphadenopathy Lungs: Clear to auscultation bilaterally but difficult to hear breath sounds, non-labored respirations, symmetric chest rise, no use of accessory muscles Heart: Normal S1 and S2, no S3 or S4 appreciated. Normal rate and regular rhythm, no murmurs, rubs gallops. 1+ b/l edema Abdomen: Soft, nondistended. Mild TTP of LLQ Musculoskeletal: Normal range of motion and strength, no tenderness or swelling Skin: Skin is warm, dry, no rashes or lesions. Venous stasis dermatitis b/l LE Neurologic: Alert, awake and oriented x3. CN II-XII grossly intact. Able to follow commands. No focal neuro deficits. No signs of meningeal irritation noted. Psychiatric: Cooperative, appropriate mood and affect Objective Labs 03/07/25 05:29 03/07/25 05:29 Labs: Laboratory Results - last 24 hr 03/05/25 03/06/25 18:42 05:44 WBC 13.6 H RBC 3.45 L Hgb 11.6 L Hct 34.6 L MCV 100 MCH 33.6 MCHC 33.5 RDW Std Deviation 51.8 H Plt Count 201 Neut % (Auto) 76 Lymph % (Auto) 15 Marion % (Auto) 5 Eos % (Auto) 3 Baso % (Auto) 0 Neut # (Auto) 10.3 H Lymph # (Auto) 2.1 Marion # (Auto) 0.7 Eos # (Auto) 0.4 Baso # (Auto) 0.1 Immature Gran # (Auto) 0.10 H Absolute Nucleated RBC 0.00 Immature Gran % 1 H Nucleated RBC % 0 VBG pH 7.42 VBG pCO2 54 VBG pO2 49 VBG O2 Sat (Kulwinder) 86 L VBG Base Excess 9 H Sodium 142 Potassium 3.8 Chloride 100 Carbon Dioxide 33.8 H Anion Gap 8 BUN 7 L Creatinine 0.8 Estim Creat Clear Calc 114.9 eGFR > 60 BUN/Creatinine Ratio 9 L Glucose 108 H Calculated Osmolality 282 Calcium 9.5 Corrected Calcium 9.6 Phosphorus 3.0 Magnesium 1.7 Total Bilirubin 0.6 AST 13 ALT 8 L Alkaline Phosphatase 45 L Total Protein 6.6 Albumin 3.9 Globulin 2.7 Albumin/Globulin Ratio 1.4 ABG Interpretation ABG results: 02/26/25 02/26/25 02/26/25 02:53 04:39 06:13 ABG pH 7.07 L* 7.17 L* D 7.10 L* ABG pCO2 116 H* 98 H* D 117 H* D ABG pO2 96 140 H D 102 D ABG HCO3 34 H 36 H 36 H ABG O2 Saturation 95 99 H 96 ABG Base Excess 0 4 H 2 VBG pH VBG pCO2 VBG pO2 VBG Base Excess 02/26/25 02/26/25 02/26/25 08:33 11:37 11:39 ABG pH 7.21 L D 7.25 L ABG pCO2 84 H* D 78 H* ABG pO2 372 H D 223 H D ABG HCO3 33 H 34 H ABG O2 Saturation 100 H 100 H ABG Base Excess 2 4 H VBG pH 7.29 L VBG pCO2 61 H VBG pO2 134 H VBG Base Excess 1 02/26/25 02/26/25 02/27/25 14:20 19:23 02:24 ABG pH 7.29 L 7.30 L 7.38 ABG pCO2 71 H* 71 H* 61 H D ABG pO2 169 H D 191 H D 89 D ABG HCO3 34 H 35 H 36 H ABG O2 Saturation 100 H 100 H 98 ABG Base Excess 5 H 6 H 9 H VBG pH VBG pCO2 VBG pO2 VBG Base Excess 02/27/25 02/28/25 03/05/25 09:26 08:42 18:42 ABG pH 7.46 H 7.39 ABG pCO2 49 H D 60 H D ABG pO2 120 H D 79 L D ABG HCO3 35 H 36 H ABG O2 Saturation 100 H 96 ABG Base Excess 10 H 9 H VBG pH 7.42 VBG pCO2 54 VBG pO2 49 VBG Base Excess 9 H Quality Measures Quality Measures VTE prophylaxis Assessment & Plan Assessment Current Active Medications: Generic Name Dose Route Start Last Admin Trade Name Freq PRN Reason Stop Dose Admin Acetaminophen 650 mg 02/26/25 01:25 Acetaminophen 325 Mg Tablet PO 03/28/25 01:24 Q6H PRN Fever >100.3 Acetaminophen 650 mg 02/26/25 01:25 Acetaminophen 325 Mg Tablet PO 03/28/25 01:24 Q6H PRN PAIN SCALE 1-3 (mild Albuterol/Ipratropium 3 ml 02/26/25 11:25 Albuterol/Ipratropium (Duoneb) Rt Christine 3 Ml Nebu INH 03/28/25 11:24 Q2HR PRN SHORTNESS OF BREATH OR WHEEZE Amlodipine Besylate 10 mg 02/26/25 09:00 03/06/25 09:41 Amlodipine Besylate 5 Mg Tablet PO 03/28/25 08:59 10 mg QDAY ÁNGEL Administration Artificial Tears 0 drop 02/27/25 13:36 Artificial Tears 225 Drop/15 Ml Btl BOTH EYES 03/29/25 13:35 PRN PRN TO KEEP EYES MOIST Aspirin 81 mg 02/26/25 09:00 03/06/25 09:43 Aspirin Ec 81 Mg Tabec PO 03/28/25 08:59 81 mg QDAY ÁNGEL Administration Atorvastatin Calcium 40 mg 02/26/25 21:00 03/05/25 20:46 Atorvastatin Calcium 20 Mg Tablet PO 03/28/25 20:59 40 mg HS ÁNGEL Administration Carvedilol 3.125 mg 03/02/25 21:00 03/06/25 09:42 Carvedilol 3.125 Mg Tablet PO 04/01/25 20:59 3.125 mg BID ÁNGEL Administration Protocol Dextrose 50 ml 02/26/25 05:51 Dextrose 50%-Water Inj 50 Ml Syringe IV 03/28/25 05:50 Q15MIN PRN BG <50 OR BG <70 & pt unresponsive Dextrose 25 ml 02/26/25 05:51 02/26/25 13:11 Dextrose 50%-Water Inj 50 Ml Syringe IV 03/28/25 05:50 25 ml Q15MIN PRN Administration BG 50-70 responsive npo pt Enoxaparin Sodium 60 mg 03/01/25 21:00 03/06/25 09:43 Enoxaparin Sod Inj 60 Mg/0.6 Ml Syringe SC 03/15/25 20:59 60 mg BID ÁNGEL Administration Glucagon 1 mg 02/26/25 05:51 Glucagon Inj 1 Mg Vial IM Q15MIN PRN BG <70, and no IV access Insulin Human Lispro 0 unit 02/28/25 17:00 03/06/25 16:38 Insulin Lispro (Admelog) 1 Unit/0.01 Ml Unit SC 03/30/25 16:59 Not Given ACHS ÁNGEL Protocol Levothyroxine Sodium 125 mcg/ 175 mcg 02/27/25 06:00 03/06/25 05:07 Levothyroxine Sodium 50 mcg PO 03/29/25 05:59 175 mcg ACBR ÁNGEL Administration Losartan Potassium 25 mg 02/26/25 09:00 03/06/25 09:43 Losartan Potassium 25 Mg Tablet PO 03/28/25 08:59 25 mg QDAY ÁNGEL Administration Ondansetron HCl 4 mg 02/26/25 01:25 02/26/25 01:54 Ondansetron Inj 2 Mg/Ml Inj 2 Ml IVP 03/28/25 01:24 4 mg Q6H PRN Administration NAUSEA OR VOMITING Protocol Potassium Chloride 20 meq 03/06/25 17:30 03/06/25 16:40 Potassium Chloride 20 Meq Tabcr PO 04/05/25 17:29 20 meq BIDWM ÁNGEL Administration Plan 54-year-old female with past medical history of morbid obesity, hyperlipidemia, hypertension, T2DM, cholecystectomy, AL, hypothyroidism, MRSA + periorbital cellulitis, anemia who presented to the ED on 02/25 with epigastric and left upper and lower quadrant abdominal pain x 3 days. Admitted for acute hypercapneic respiratory failure, diverticulitis. 03/06: Patient is on BiPAP when sleeping. BiPAP setting: rate 24 bpm, FiO2 30%, inspiratory pressure 18, expiratory pressure 9, and satting 97% #Acute hypoxic hypercapnic respiratory failure (resolving) #Obesity Hypoventilation Syndrome (OHS) #Obstructive Sleep Apnea (MELISSA) Respiratory failure likely secondary to obesity hypoventilation syndrome due to MELISSA The patient's mentation has significantly improved since admission, likely in response to the initiation of BiPAP therapy. There is a marked improvement in hypercapnia as well. Most recent ABG shows pH 7.46, pCO2 49, pO2 120 Patient was trialed off BiPAP however oxygenation dropped to the 70s so BiPAP was back on nights/sleep time, and HF NC at other times. VBG pH 7.42, pCO2 54, pO2 49 WNL Plan: - Weaned off of HFNC - BiPAP/CPAP when sleeping - encourage incentive spirometry - DuoNeb RT Q2h PRN - Ambulate 3 times daily, physical therapy and mobilization. - Avoid sedating medications. - Pulm consulted, Dr. Wolff, appreciate recs - Patient will need home BiPAP/CPAP upon discharge. - Outpatient sleep study. - Up to chair 3 times daily as tolerated - Possible discharge to SNF for further rehabilitation #Diverticulosis #Sigmoid diverticulitis, resolved Patient is afebrile. Lactic acid improved from 1.3 to 0.7, and lipase is within normal limits. CT A/P without contrast showed colonic diverticulosis with abnormal small bowel loops, wall thickening, and inflammatory changes, suggesting acute diverticulitis of the sigmoid colon. CT A/P also revealed hepatocellular disease with irregular liver contour, a 19 mm uterine fundal mass, and mild nodular thickening of the adrenal glands. CTA A/P confirmed diverticulosis of the colon, thickening of the cecum and ascending colon, and inflammatory changes. No evidence of bowel obstruction, free fluid, free air, or abscess. Right adrenal nodule 2.2 cm noted. Given ceftriaxone 1 g IV, morphine 4 mg IV, Zofran 4 mg IV, 500 mL NS, metronidazole 500 mg IV. ? Blood ctx were negative at 48h point in 2/2 bottles. ? Pt completed 5 day course of Zosyn 3.375g TID 03/02/2025 - Ciprofloxacin IV 400 mg twice daily (03/03 -03/04) -complete - Flagyl IV 500 mg 3 times daily (03/03 -03/04) -complete - Bowel rest and pain management. #Pericardial effusion, chronic #c/f pericarditis Pt denies chest pain, afebrile, hypertensive Seen on CTA a/p. No aortic dissection seen on CTA prelim read DDX: post-AL, hypothyroidism, viral, malignancy, inflammatory/autoimmune Echo done 02/26 showed pericardium appears normal. There is small to moderate circumferential pericardial effusion. No evidence of cardiac tamponade. Fribrogenous exudate on LV and RV velez indicating chronic effusion. Viral panel with influenza A, B, and COVID came back negative. Plan: - Cardiology consulted, Dr. Page - No need for pericardiocentesis at this time as there is no concern for tamponade - Consider NSAID therapy if patient develops chest pain #Hypertension, chronic #Hypertensive urgency - resolved 188/105 (HR 88) --> 134/93, HR 69 Plan: - Amlodipine 10 mg daily (listed as home med) - Losartan 25 mg daily (home dose 50mg daily) - Resumed carvedilol PO 3.125mg bid #T2DM A1c 6.8 Plan: - Target blood sugar of 140-180 while hospitalized. - SSI #Nodular Thickening of Rt adrenal gland findings of CT imaging 02/26/2025 - Recommend outpatient follow-up with evaluation of labs for metanephrines, free cortisol, renin/aldosterone levels - elective MRI outpatient for further workup and management. #Hypothyroidism Patient has severely uncontrolled hypothyroidism likely secondary to medication noncompliance. TSH 59.14, T4 0.17 Plan: - Levothyroxine 175 mcg daily - Recommend outpatient endocrine follow-up #Hyperlipidemia #Hx of AL - Continue Aspirin 81 mg daily, atorvastatin 40 mg daily (listed as home med) Health Maintenance: Dispo: Admit to tele for w/u acute hypercapneic respiratory failure, diverticulitis. PT recommended homeheatlh PT upon dc to home for home safety (decrease risk of fall, increase MM strength, and improve mobility). Diet: Special diet VTE ppx: Lovenox 60mg bid Pain mgmt: Tylenol, morphine 2 mg IV q6h PRN Code status: Full This case was discussed with my attending physician, Dr. Mathew, and senior resident, Dr Muse. Nilsa Hercules DO PGY I Attending Provider Attestation/Addendum I have discussed and was present for the essential components of the history, physical examination, diagnosis, and treatment plan with the resident. I agree with the patient's care as documented by the resident and amended herein by me. Merritt Mathew DO. Although this document has been carefully reviewed, there may still be some phonetic and other typographical errors. These errors are purely grammatical due to imperfections in the software program and should not be construed in any way to compromise the substance of the patient's medical care during this visit.
[2025-03-06] MEDS: ATORVASTATIN CALCIUM 20 MG TABLET 40 MG PO (20:32)
[2025-03-07] VITALS (16 sets, daily range): BP systolic 110–166; BP diastolic 65–94; PULSE 64–84; RESP 17–24; TEMP 36.1–37.1; O2SAT 93–98; BMI 60.8
[2025-03-07] MEDS: LEVOTHYROXINE SODIUM 125 MCG, LEVOTHYROXINE SODIUM 50 MCG 175 MCG PO (05:11)
[2025-03-07 06:10] LABS: Basophils # (Auto) 0.1 Thou/mm3 (0.0-0.2); Basophils % (Auto) 0 % (0-2.5); Eosinophils # (Auto) 0.3 Thou/mm3 (0.0-0.5); Eosinophils % (Auto) 3 % (0-10); Hematocrit 34.4 % (36.0-46.0); Hemoglobin 10.9 g/dL (12.0-16.0); Immature Granulocytes Auto 0.08 Thou/mm3 (0.00-0.00); Lymphocytes # (Auto) 2.0 Thou/mm3 (1.0-4.8); Lymphocytes % (Auto) 16 % (10-50); Mean Corpuscular HGB Conc 31.7 g/dl (31.0-37.0); Mean Corpuscular Hemoglobin 32.5 pg (25.0-35.0); Mean Corpuscular Volume 103 fL (80-100); Monocytes # (Auto) 0.6 Thou/mm3 (0.0-0.8); Monocytes % (Auto) 4 % (0-12); Neutrophils # (Auto) 9.9 Thou/mm3 (1.8-7.7); Neutrophils % (Auto) 76 % (37-80); Nucleated Red Blood Cell # 0.00 Thou/mm3 (0.00-0.00); Nucleated Red Blood Cell % 0 /100 WBC (0); Platelet Count 236 Thou/mm3 (140-440); RDW Standard Deviation 52.9 fL (36.4-46.3); Red Blood Count 3.35 Miln/mm3 (4.00-5.20); White Blood Count 12.9 Thou/mm3 (3.6-11.0)
[2025-03-07 06:33] LABS: Alanine Aminotransferase 9 U/L (10-49); Albumin, Serum 3.9 gm/dL (3.5-5.0); Albumin/Globulin Ratio 1.7 (1.2-2.2); Alkaline Phosphatase 48 U/L (46-116); Anion Gap 6 (7-16); Aspartate Amino Transferase 22 U/L (0-34); BUN/Creatinine Ratio 12 Ratio (12-20); Bilirubin,Total 0.6 mg/dL (0.3-1.2); Blood Urea Nitrogen 11 mg/dL (9-23); Calcium 8.9 mg/dL (8.3-10.6); Calcium (Corrected) 9.0 mg/dL (8.5-10.1); Carbon Dioxide 34.6 mMol/L (20.0-31.0); Chloride 101 mMol/L (98-107); Creatinine (Component) 0.9 mg/dL (0.6-1.3); Estimated Creatinine Clearance 99.4 mL/min (>60); Globulin 2.3 gm/dL (2.3-3.5); Glucose 108 mg/dL (74-106); Magnesium 2.0 mg/dL (1.6-2.6); Osmolality,Calculated 283 (275-295); Phosphorous 2.9 mg/dL (2.4-5.1); Potassium 3.8 mMol/L (3.4-5.1); Sodium 142 mMol/L (136-145); Total Protein 6.2 gm/dL (5.7-8.2); eGFR > 60 See Note
[2025-03-07] MEDS: LOSARTAN POTASSIUM 25 MG TABLET PO (08:57)
[2025-03-07] MEDS: ENOXAPARIN SOD INJ 60 MG/0.6 ML SYRINGE SC (08:58)
--- NOTE | 2025-03-07 08:58 | PC.SS ---
Follow up note: SS spoke to Alka from [facility] who explained insurance authorization has been obtained and they are waiting for the arrival of [employer].
[2025-03-07] MEDS: ASPIRIN EC 81 MG TABEC PO (09:13)
[2025-03-07 15:58] LABS: Collection Type, Urine Clean Catch
[2025-03-07 16:16] LABS: Bilirubin,Urine Negative (Negative); Blood,Urine 3+ (Negative); Glucose, Urine Negative (Negative); Ketones,Urine Negative (Negative); Leukocyte Esterase,Urine Positive (Negative); Nitrite,Urine Negative (Negative); PH,Urine 6.0 (5.0-7.0); Protein,Urine 1+ (Neg - Trace); RBC,Urine 2318 /hpf (0-3); Specific Gravity,Urine 1.018 (1.001-1.035); Squamous Epithelial Cell,Urine 10 /hpf (0-5); Urobilinogen,Urine Negative mg/dL (0.0-1.0); WBC,Urine 27 /hpf (0-5)
[2025-03-07 16:19] LABS: Clarity,Urine Hazy (Clear/Hazy); Color,Urine Lt Yellow (Lt Yel-Yel)
--- NOTE | 2025-03-07 16:21 | ESPR_ITS ---
<Statement entered by Rigo Muse MD - 03/08/25 07:10> Patient seen and examined at bedside. I discussed and supervised with the project internship physician who took care of this patient. I personally saw and examined the patient. I agree with most of the assessment and plan. Plan of care discussed with attending Dr. Mathew. Rigo Muse MD PGY-2 Documentation for date of: 03/07/25 Subjective Subjective Interval history: Patient seen and examined at bedside, resting comfortably. No acute events took place overnight. Patient satting 96% on 2 L via NC. She denies shortness of breath, chest pain, fever, or abdominal pain. Pending discharge to SNF for further rehab. Patient able to generate BM. Patient was noted to have deep purple urine output collected in [place] suction bucket. Patient states the new color to the urine developed after catheter was removed. Noted also hyperpigmented 3 to 5 mm in diameter circular isolated lesions on the inside of the lower lip, which are not sore to the patient. Exam Vital Signs Temp Pulse Resp BP Pulse Ox O2 Del Method O2 Flow Rate 97.9 F 84 22 H 110/79 96 Nasal Cannula 2 03/07/25 11:12 03/07/25 11:15 03/07/25 11:15 03/07/25 11:12 03/07/25 11:15 03/07/25 11:12 03/07/25 11:15 FiO2 30 03/07/25 04:00 Narrative Exam General: No acute distress, morbidly obese Eye: PERRL, EOMI HENT: Normocephalic, atraumatic, normal hearing, moist oral mucosa, hoarse voice (chronic). 3 to 5 mm in diameter circular isolated papules on the inside of the lower lip. Neck: Supple, non-tender, no JVD, no lymphadenopathy Lungs: Clear to auscultation bilaterally but difficult to hear breath sounds, non-labored respirations, symmetric chest rise, no use of accessory muscles Heart: Normal S1 and S2, no S3 or S4 appreciated. Normal rate and regular rhythm, no murmurs, rubs gallops. 1+ b/l edema. Abdomen: Soft, nondistended. Mild TTP of LLQ Musculoskeletal: Normal range of motion and strength, no tenderness or swelling Skin: Skin is warm, dry, no rashes or lesions. Venous stasis dermatitis b/l LE Neurologic: Alert, awake and oriented x3. CN II-XII grossly intact. Able to follow commands. No focal neuro deficits. No signs of meningeal irritation noted. Psychiatric: Cooperative, appropriate mood and affect Objective Labs 03/08/25 05:48 03/08/25 05:48 Labs: Laboratory Results - last 24 hr 03/07/25 03/07/25 05:29 14:15 WBC 12.9 H RBC 3.35 L Hgb 10.9 L Hct 34.4 L MCV 103 H MCH 32.5 MCHC 31.7 RDW Std Deviation 52.9 H Plt Count 236 D Neut % (Auto) 76 Lymph % (Auto) 16 [place] % (Auto) 4 Eos % (Auto) 3 Baso % (Auto) 0 Neut # (Auto) 9.9 H Lymph # (Auto) 2.0 [place] # (Auto) 0.6 Eos # (Auto) 0.3 Baso # (Auto) 0.1 Immature Gran # (Auto) 0.08 H Absolute Nucleated RBC 0.00 Immature Gran % 1 H Nucleated RBC % 0 Sodium 142 Potassium 3.8 Chloride 101 Carbon Dioxide 34.6 H Anion Gap 6 L BUN 11 Creatinine 0.9 Estim Creat Clear Calc 99.4 eGFR > 60 BUN/Creatinine Ratio 12 Glucose 108 H Calculated Osmolality 283 Calcium 8.9 Corrected Calcium 9.0 Phosphorus 2.9 Magnesium 2.0 Total Bilirubin 0.6 AST 22 ALT 9 L Alkaline Phosphatase 48 Total Protein 6.2 Albumin 3.9 Globulin 2.3 Albumin/Globulin Ratio 1.7 Ur Collection Type Clean Catch Urine Color Lt Yellow Urine Clarity Hazy Urine pH 6.0 Ur Specific [place] 1.018 Urine Protein 1+ A Urine Glucose (UA) Negative Urine Ketones Negative Urine Blood 3+ A Urine Nitrite Negative Urine Bilirubin Negative Urine Urobilinogen (Auto) Negative Ur Leukocyte Esterase Positive Urine RBC 2318 H Urine WBC 27 H Ur Squamous Epith Cells 10 H Urine Bacteria None ABG Interpretation ABG results: 02/26/25 02/26/25 02/26/25 02:53 04:39 06:13 ABG pH 7.07 L* 7.17 L* D 7.10 L* ABG pCO2 116 H* 98 H* D 117 H* D ABG pO2 96 140 H D 102 D ABG HCO3 34 H 36 H 36 H ABG O2 Saturation 95 99 H 96 ABG Base Excess 0 4 H 2 VBG pH VBG pCO2 VBG pO2 VBG Base Excess 02/26/25 02/26/25 02/26/25 08:33 11:37 11:39 ABG pH 7.21 L D 7.25 L ABG pCO2 84 H* D 78 H* ABG pO2 372 H D 223 H D ABG HCO3 33 H 34 H ABG O2 Saturation 100 H 100 H ABG Base Excess 2 4 H VBG pH 7.29 L VBG pCO2 61 H VBG pO2 134 H VBG Base Excess 1 02/26/25 02/26/25 02/27/25 14:20 19:23 02:24 ABG pH 7.29 L 7.30 L 7.38 ABG pCO2 71 H* 71 H* 61 H D ABG pO2 169 H D 191 H D 89 D ABG HCO3 34 H 35 H 36 H ABG O2 Saturation 100 H 100 H 98 ABG Base Excess 5 H 6 H 9 H VBG pH VBG pCO2 VBG pO2 VBG Base Excess 02/27/25 02/28/25 03/05/25 09:26 08:42 18:42 ABG pH 7.46 H 7.39 ABG pCO2 49 H D 60 H D ABG pO2 120 H D 79 L D ABG HCO3 35 H 36 H ABG O2 Saturation 100 H 96 ABG Base Excess 10 H 9 H VBG pH 7.42 VBG pCO2 54 VBG pO2 49 VBG Base Excess 9 H Quality Measures Quality Measures VTE prophylaxis Assessment & Plan Assessment Current Active Medications: Generic Name Dose Route Start Last Admin Trade Name Freq PRN Reason Stop Dose Admin Acetaminophen 650 mg 02/26/25 01:25 Acetaminophen 325 Mg Tablet PO 03/28/25 01:24 Q6H PRN Fever >100.3 Acetaminophen 650 mg 02/26/25 01:25 Acetaminophen 325 Mg Tablet PO 03/28/25 01:24 Q6H PRN PAIN SCALE 1-3 (mild Albuterol/Ipratropium 3 ml 02/26/25 11:25 Albuterol/Ipratropium (Duoneb) Rt Christine 3 Ml Nebu INH 03/28/25 11:24 Q2HR PRN SHORTNESS OF BREATH OR WHEEZE Amlodipine Besylate 10 mg 02/26/25 09:00 03/07/25 09:12 Amlodipine Besylate 5 Mg Tablet PO 03/28/25 08:59 10 mg QDAY ÁNGEL Administration Artificial Tears 0 drop 02/27/25 13:36 Artificial Tears 225 Drop/15 Ml Btl BOTH EYES 03/29/25 13:35 PRN PRN TO KEEP EYES MOIST Aspirin 81 mg 02/26/25 09:00 03/07/25 09:13 Aspirin Ec 81 Mg Tabec PO 03/28/25 08:59 81 mg On Hold: 03/07/25 12:00 QDAY ÁNGEL Administration Atorvastatin Calcium 40 mg 02/26/25 21:00 03/06/25 20:32 Atorvastatin Calcium 20 Mg Tablet PO 03/28/25 20:59 40 mg HS ÁNGEL Administration Carvedilol 3.125 mg 03/02/25 21:00 03/07/25 08:58 Carvedilol 3.125 Mg Tablet PO 04/01/25 20:59 3.125 mg BID ÁNGEL Administration Protocol Dextrose 50 ml 02/26/25 05:51 Dextrose 50%-Water Inj 50 Ml Syringe IV 03/28/25 05:50 Q15MIN PRN BG <50 OR BG <70 & pt unresponsive Dextrose 25 ml 02/26/25 05:51 02/26/25 13:11 Dextrose 50%-Water Inj 50 Ml Syringe IV 03/28/25 05:50 25 ml Q15MIN PRN Administration BG 50-70 responsive npo pt Enoxaparin Sodium 60 mg 03/01/25 21:00 03/07/25 08:58 Enoxaparin Sod Inj 60 Mg/0.6 Ml Syringe SC 03/15/25 20:59 60 mg On Hold: 03/07/25 12:01 BID ÁNGEL Administration Glucagon 1 mg 02/26/25 05:51 Glucagon Inj 1 Mg Vial IM Q15MIN PRN BG <70, and no IV access Insulin Human Lispro 0 unit 02/28/25 17:00 03/07/25 11:46 Insulin Lispro (Admelog) 1 Unit/0.01 Ml Unit SC 03/30/25 16:59 Not Given ACHS ÁNGEL Protocol Levothyroxine Sodium 125 mcg/ 175 mcg 02/27/25 06:00 03/07/25 05:11 Levothyroxine Sodium 50 mcg PO 03/29/25 05:59 175 mcg ACBR ÁNGEL Administration Losartan Potassium 25 mg 02/26/25 09:00 03/07/25 08:57 Losartan Potassium 25 Mg Tablet PO 03/28/25 08:59 25 mg QDAY ÁNGEL Administration Ondansetron HCl 4 mg 02/26/25 01:25 02/26/25 01:54 Ondansetron Inj 2 Mg/Ml Inj 2 Ml IVP 03/28/25 01:24 4 mg Q6H PRN Administration NAUSEA OR VOMITING Protocol Potassium Chloride 20 meq 03/06/25 17:30 03/07/25 08:58 Potassium Chloride 20 Meq Tabcr PO 04/05/25 17:29 20 meq BIDWM ÁNGEL Administration Plan 54-year-old female with past medical history of morbid obesity, hyperlipidemia, hypertension, T2DM, cholecystectomy, [place], hypothyroidism, MRSA + periorbital cellulitis, anemia who presented to the ED on 02/25 with epigastric and left upper and lower quadrant abdominal pain x 3 days. Admitted for acute hypercapneic respiratory failure, diverticulitis. 03/06: Patient is on BiPAP when sleeping. BiPAP setting: rate 24 bpm, FiO2 30%, inspiratory pressure 18, expiratory pressure 9, and satting 97%. Her stay was complicated by the finding of deep purple discoloration of the urine concerning for hematuria. UA showed 2318 U RBC, positive leukocyte esterase, findings likely 2/2 traumatic U catheter removal. Held aspirin and Lovenox. #Acute hypoxic hypercapnic respiratory failure (resolving) #Obesity Hypoventilation Syndrome (OHS) #Obstructive Sleep Apnea (MELISSA) Respiratory failure likely secondary to obesity hypoventilation syndrome due to MELISSA The patient's mentation has significantly improved since admission, likely in response to the initiation of BiPAP therapy. There is a marked improvement in hypercapnia as well. Most recent ABG shows pH 7.46, pCO2 49, pO2 120 Patient was trialed off BiPAP however oxygenation dropped to the 70s so BiPAP was back on nights/sleep time, and HF NC at other times. VBG pH 7.42, pCO2 54, pO2 49 WNL Plan: - Weaned off of HFNC - BiPAP/CPAP when sleeping - encourage incentive spirometry - DuoNeb RT Q2h PRN - Ambulate 3 times daily, physical therapy and mobilization. - Avoid sedating medications. - Pulm consulted, Dr. Wolff, appreciate recs - Patient will need home BiPAP/CPAP upon discharge. - Outpatient sleep study. - Up to chair 3 times daily as tolerated - Possible discharge to SNF for further rehabilitation #Hematuria On 03/07, patient noted to have deep purple discoloration to her urine collected inside suction bucket. Likely due to traumatic U catheter removal. UA showed RBC 2318 and positive leukocyte esterase. -Held aspirin and Lovenox #Diverticulosis #Sigmoid diverticulitis, resolved Patient is afebrile. Lactic acid improved from 1.3 to 0.7, and lipase is within normal limits. CT A/P without contrast showed colonic diverticulosis with abnormal small bowel loops, wall thickening, and inflammatory changes, suggesting acute diverticulitis of the sigmoid colon. CT A/P also revealed hepatocellular disease with irregular liver contour, a 19 mm uterine fundal mass, and mild nodular thickening of the adrenal glands. CTA A/P confirmed diverticulosis of the colon, thickening of the cecum and ascending colon, and inflammatory changes. No evidence of bowel obstruction, free fluid, free air, or abscess. Right adrenal nodule 2.2 cm noted. Given ceftriaxone 1 g IV, morphine 4 mg IV, Zofran 4 mg IV, 500 mL NS, metronidazole 500 mg IV. ? Blood ctx were negative at 48h point in / bottles. ? Pt completed 5 day course of Zosyn 3.375g TID 03/02/2025 - Ciprofloxacin IV 400 mg twice daily (03/03 -03/04) -complete - Flagyl IV 500 mg 3 times daily (03/03 -03/04) -complete - Bowel rest and pain management. #Pericardial effusion, chronic #c/f pericarditis Pt denies chest pain, afebrile, hypertensive Seen on CTA a/p. No aortic dissection seen on CTA prelim read DDX: post-IN, hypothyroidism, viral, malignancy, inflammatory/autoimmune Echo done 02/26 showed pericardium appears normal. There is small to moderate circumferential pericardial effusion. No evidence of cardiac tamponade. Fribrogenous exudate on LV and RV velez indicating chronic effusion. Viral panel with influenza A, B, and COVID came back negative. Plan: - Cardiology consulted, Dr. Page - No need for pericardiocentesis at this time as there is no concern for tamponade - Consider NSAID therapy if patient develops chest pain #Hypertension, chronic #Hypertensive urgency - resolved 188/105 (HR 88) --> 134/93, HR 69 Plan: - Amlodipine 10 mg daily (listed as home med) - Losartan 25 mg daily (home dose 50mg daily) - Resumed carvedilol PO 3.125mg bid #T2DM A1c 6.8 Plan: - Target blood sugar of 140-180 while hospitalized. - SSI #Nodular Thickening of Rt adrenal gland findings of CT imaging 02/26/2025 - Recommend outpatient follow-up with evaluation of labs for metanephrines, free cortisol, renin/aldosterone levels - elective MRI outpatient for further workup and management. #Hypothyroidism Patient has severely uncontrolled hypothyroidism likely secondary to medication noncompliance. TSH 59.14, T4 0.17 Plan: - Levothyroxine 175 mcg daily - Recommend outpatient endocrine follow-up #Hyperlipidemia #Hx of [place] - atorvastatin 40 mg daily (listed as home med) - Held aspirin 81 mg ISO hematuria Health Maintenance: Dispo: Admit to tele for w/u acute hypercapneic respiratory failure, diverticulitis. PT recommended homeheatlh PT upon dc to home for home safety (decrease risk of fall, increase MM strength, and improve mobility). Monitoring recent development of hematuria. Diet: Special diet VTE ppx: SCD Pain mgmt: Tylenol, morphine 2 mg IV q6h PRN Code status: Full This case was discussed with my attending physician, Dr. Mathew, and senior resident, Dr Muse. Nilsa Hercules DO PGY I Attending Provider Attestation/Addendum I have discussed and was present for the essential components of the history, physical examination, diagnosis, and treatment plan with the resident. I agree with the patient's care as documented by the resident and amended herein by me. Merritt Mathew DO. Although this document has been carefully reviewed, there may still be some phonetic and other typographical errors. These errors are purely grammatical due to imperfections in the software program and should not be construed in any way to compromise the substance of the patient's medical care during this visit. Patient seen and evaluated this AM. No acute events overnight, the patient's urine had a very dark purple tinge to it, patient likely bled secondary to [place] catheter insertion/removal. Will hold the patient tonight make sure her urine clears prior to sending to SNF for rehab.
[2025-03-07] MEDS: ATORVASTATIN CALCIUM 20 MG TABLET 40 MG PO (23:10)
[2025-03-08] VITALS (13 sets, daily range): BP systolic 118–141; BP diastolic 66–84; PULSE 61–83; RESP 9–27; TEMP 36.1–36.6; O2SAT 93–99; BMI 60.8
--- NOTE | 2025-03-08 04:30 | PC.NURSE ---
removed bipap per pt request and applied O2 inh on at 3L/min/nc.
--- NOTE | 2025-03-08 06:00 | PC.NURSE ---
still having hematuria
[2025-03-08 06:15] LABS: Basophils # (Auto) 0.1 Thou/mm3 (0.0-0.2); Basophils % (Auto) 0 % (0-2.5); Eosinophils # (Auto) 0.4 Thou/mm3 (0.0-0.5); Eosinophils % (Auto) 3 % (0-10); Hematocrit 33.6 % (36.0-46.0); Hemoglobin 10.9 g/dL (12.0-16.0); Immature Granulocytes Auto 0.09 Thou/mm3 (0.00-0.00); Lymphocytes # (Auto) 2.5 Thou/mm3 (1.0-4.8); Lymphocytes % (Auto) 18 % (10-50); Mean Corpuscular HGB Conc 32.4 g/dl (31.0-37.0); Mean Corpuscular Hemoglobin 32.4 pg (25.0-35.0); Mean Corpuscular Volume 100 fL (80-100); Monocytes # (Auto) 0.7 Thou/mm3 (0.0-0.8); Monocytes % (Auto) 5 % (0-12); Neutrophils # (Auto) 10.0 Thou/mm3 (1.8-7.7); Neutrophils % (Auto) 73 % (37-80); Nucleated Red Blood Cell # 0.00 Thou/mm3 (0.00-0.00); Nucleated Red Blood Cell % 0 /100 WBC (0); Platelet Count 229 Thou/mm3 (140-440); RDW Standard Deviation 51.2 fL (36.4-46.3); Red Blood Count 3.36 Miln/mm3 (4.00-5.20); White Blood Count 13.7 Thou/mm3 (3.6-11.0)
[2025-03-08] MEDS: LEVOTHYROXINE SODIUM 125 MCG, LEVOTHYROXINE SODIUM 50 MCG 175 MCG PO (06:37)
[2025-03-08 06:40] LABS: Alanine Aminotransferase 12 U/L (10-49); Albumin, Serum 4.1 gm/dL (3.5-5.0); Albumin/Globulin Ratio 1.7 (1.2-2.2); Alkaline Phosphatase 48 U/L (46-116); Anion Gap 7 (7-16); Aspartate Amino Transferase 31 U/L (0-34); BUN/Creatinine Ratio 14 Ratio (12-20); Bilirubin,Total 0.7 mg/dL (0.3-1.2); Blood Urea Nitrogen 11 mg/dL (9-23); Calcium 9.3 mg/dL (8.3-10.6); Calcium (Corrected) 9.3 mg/dL (8.5-10.1); Carbon Dioxide 34.2 mMol/L (20.0-31.0); Chloride 100 mMol/L (98-107); Creatinine (Component) 0.8 mg/dL (0.6-1.3); Estimated Creatinine Clearance 111.9 mL/min (>60); Globulin 2.4 gm/dL (2.3-3.5); Glucose 104 mg/dL (74-106); Magnesium 1.9 mg/dL (1.6-2.6); Osmolality,Calculated 280 (275-295); Phosphorous 2.7 mg/dL (2.4-5.1); Potassium 4.4 mMol/L (3.4-5.1); Sodium 141 mMol/L (136-145); Total Protein 6.5 gm/dL (5.7-8.2); eGFR > 60 See Note
[2025-03-08] MEDS: LOSARTAN POTASSIUM 25 MG TABLET PO (08:21)
--- NOTE | 2025-03-08 13:21 | PC.SS ---
Addendum entered by Ada Rodriguez 03/08/25 13:32: Informed by [facility] BIPAP has not been recieved and will inform SS if it arrives 03/09/25. Informed RN Mandish of discharge cancellation. [facility] transportation [phone] contacted and reservation [phone] cancelled. Original Note: Informed by Dr. Mathew patient can discharge today. Informed covering MARK Bui patient will be discharging and transportation will be arranged. [facility] is to confirm receipt of [facility] and inform SS. [facility] was contact [phone], res #[phone] provided.
[2025-03-08] MEDS: INSULIN LISPRO (AdmeLOG) 1 UNIT/0.01 ML UNIT SC ×2 (16:46→21:29)
--- NOTE | 2025-03-08 16:58 | ESPR_ITS ---
<Statement entered by Rigo Muse MD - 03/08/25 17:25> Patient seen and examined at bedside. I discussed and supervised with the digital marketing intern physician who took care of this patient. I personally saw and examined the patient. I agree with most of the assessment and plan. Hematuria present but clearing. Patient ready for discharge, pending SNF placement with BiPAP settings. Plan of care discussed with attending Dr. Mathew. Rigo Muse MD PGY-2 Documentation for date of: 03/08/25 Subjective Subjective Interval history: Patient seen and examined at bedside, resting comfortably. No acute events took place overnight. Patient satting 97% on 3 L via NC. She denies shortness of breath, chest pain, fever, or abdominal pain. Pending discharge to SNF for further rehab. Patient able to generate BM. 150 mL liter of orange urine collected in suction bucket, with discoloration that is much barrel filler than the day before. Patient states the new color to the urine developed after catheter was removed. Noted also hyperpigmented 3 to 5 mm in diameter circular isolated lesions on the inside of the lower lip, which are not sore to the patient, likely to be canker sores. Exam Vital Signs Temp Pulse Resp BP Pulse Ox O2 Del Method O2 Flow Rate 97.8 F 73 18 141/66 H 97 Nasal Cannula 3 03/08/25 15:41 03/08/25 15:41 03/08/25 15:41 03/08/25 15:41 03/08/25 15:41 03/08/25 15:41 03/08/25 15:41 FiO2 30 03/08/25 01:50 Narrative Exam General: No acute distress, morbidly obese Eye: PERRL, EOMI HENT: Normocephalic, atraumatic, normal hearing, moist oral mucosa, hoarse voice (chronic). 3 to 5 mm in diameter circular isolated papules on the inside of the lower lip. Neck: Supple, non-tender, no JVD, no lymphadenopathy Lungs: Clear to auscultation bilaterally but difficult to hear breath sounds, non-labored respirations, symmetric chest rise, no use of accessory muscles Heart: Normal S1 and S2, no S3 or S4 appreciated. Normal rate and regular rhythm, no murmurs, rubs gallops. 1+ b/l edema. NSR. Abdomen: Soft, nondistended. Mild TTP of LLQ Musculoskeletal: Normal range of motion and strength, no tenderness or swelling Skin: Skin is warm, dry, no rashes or lesions. Venous stasis dermatitis b/l LE Neurologic: Alert, awake and oriented x3. CN II-XII grossly intact. Able to follow commands. No focal neuro deficits. No signs of meningeal irritation noted. Psychiatric: Cooperative, appropriate mood and affect Objective Labs 03/08/25 05:48 03/08/25 05:48 Labs: Laboratory Results - last 24 hr 03/08/25 05:48 WBC 13.7 H RBC 3.36 L Hgb 10.9 L Hct 33.6 L MCV 100 MCH 32.4 MCHC 32.4 RDW Std Deviation 51.2 H Plt Count 229 Neut % (Auto) 73 Lymph % (Auto) 18 Reynolds % (Auto) 5 Eos % (Auto) 3 Baso % (Auto) 0 Neut # (Auto) 10.0 H Lymph # (Auto) 2.5 Reynolds # (Auto) 0.7 Eos # (Auto) 0.4 Baso # (Auto) 0.1 Immature Gran # (Auto) 0.09 H Absolute Nucleated RBC 0.00 Immature Gran % 1 H Nucleated RBC % 0 Sodium 141 Potassium 4.4 D Chloride 100 Carbon Dioxide 34.2 H Anion Gap 7 BUN 11 Creatinine 0.8 Estim Creat Clear Calc 111.9 eGFR > 60 BUN/Creatinine Ratio 14 Glucose 104 Calculated Osmolality 280 Calcium 9.3 Corrected Calcium 9.3 Phosphorus 2.7 Magnesium 1.9 Total Bilirubin 0.7 AST 31 ALT 12 Alkaline Phosphatase 48 Total Protein 6.5 Albumin 4.1 Globulin 2.4 Albumin/Globulin Ratio 1.7 ABG Interpretation ABG results: 02/26/25 02/26/25 02/26/25 02:53 04:39 06:13 ABG pH 7.07 L* 7.17 L* D 7.10 L* ABG pCO2 116 H* 98 H* D 117 H* D ABG pO2 96 140 H D 102 D ABG HCO3 34 H 36 H 36 H ABG O2 Saturation 95 99 H 96 ABG Base Excess 0 4 H 2 VBG pH VBG pCO2 VBG pO2 VBG Base Excess 02/26/25 02/26/25 02/26/25 08:33 11:37 11:39 ABG pH 7.21 L D 7.25 L ABG pCO2 84 H* D 78 H* ABG pO2 372 H D 223 H D ABG HCO3 33 H 34 H ABG O2 Saturation 100 H 100 H ABG Base Excess 2 4 H VBG pH 7.29 L VBG pCO2 61 H VBG pO2 134 H VBG Base Excess 1 02/26/25 02/26/25 02/27/25 14:20 19:23 02:24 ABG pH 7.29 L 7.30 L 7.38 ABG pCO2 71 H* 71 H* 61 H D ABG pO2 169 H D 191 H D 89 D ABG HCO3 34 H 35 H 36 H ABG O2 Saturation 100 H 100 H 98 ABG Base Excess 5 H 6 H 9 H VBG pH VBG pCO2 VBG pO2 VBG Base Excess 02/27/25 02/28/25 03/05/25 09:26 08:42 18:42 ABG pH 7.46 H 7.39 ABG pCO2 49 H D 60 H D ABG pO2 120 H D 79 L D ABG HCO3 35 H 36 H ABG O2 Saturation 100 H 96 ABG Base Excess 10 H 9 H VBG pH 7.42 VBG pCO2 54 VBG pO2 49 VBG Base Excess 9 H Quality Measures Quality Measures VTE prophylaxis Assessment & Plan Assessment Current Active Medications: Generic Name Dose Route Start Last Admin Trade Name Freq PRN Reason Stop Dose Admin Acetaminophen 650 mg 02/26/25 01:25 Acetaminophen 325 Mg Tablet PO 03/28/25 01:24 Q6H PRN Fever >100.3 Acetaminophen 650 mg 02/26/25 01:25 Acetaminophen 325 Mg Tablet PO 03/28/25 01:24 Q6H PRN PAIN SCALE 1-3 (mild Albuterol/Ipratropium 3 ml 02/26/25 11:25 Albuterol/Ipratropium (Duoneb) Rt Christine 3 Ml Nebu INH 03/28/25 11:24 Q2HR PRN SHORTNESS OF BREATH OR WHEEZE Amlodipine Besylate 10 mg 02/26/25 09:00 03/08/25 08:21 Amlodipine Besylate 5 Mg Tablet PO 03/28/25 08:59 10 mg QDAY ÁNGEL Administration Artificial Tears 0 drop 02/27/25 13:36 Artificial Tears 225 Drop/15 Ml Btl BOTH EYES 03/29/25 13:35 PRN PRN TO KEEP EYES MOIST Aspirin 81 mg 02/26/25 09:00 03/07/25 09:13 Aspirin Ec 81 Mg Tabec PO 03/28/25 08:59 81 mg On Hold: 03/07/25 12:00 QDAY ÁNGEL Administration Atorvastatin Calcium 40 mg 02/26/25 21:00 03/07/25 23:10 Atorvastatin Calcium 20 Mg Tablet PO 03/28/25 20:59 40 mg HS ÁNGEL Administration Carvedilol 3.125 mg 03/02/25 21:00 03/08/25 08:21 Carvedilol 3.125 Mg Tablet PO 04/01/25 20:59 3.125 mg BID ÁNGEL Administration Protocol Dextrose 50 ml 02/26/25 05:51 Dextrose 50%-Water Inj 50 Ml Syringe IV 03/28/25 05:50 Q15MIN PRN BG <50 OR BG <70 & pt unresponsive Dextrose 25 ml 02/26/25 05:51 02/26/25 13:11 Dextrose 50%-Water Inj 50 Ml Syringe IV 03/28/25 05:50 25 ml Q15MIN PRN Administration BG 50-70 responsive npo pt Enoxaparin Sodium 60 mg 03/01/25 21:00 03/07/25 08:58 Enoxaparin Sod Inj 60 Mg/0.6 Ml Syringe SC 03/15/25 20:59 60 mg On Hold: 03/07/25 12:01 BID ÁNGEL Administration Glucagon 1 mg 02/26/25 05:51 Glucagon Inj 1 Mg Vial IM Q15MIN PRN BG <70, and no IV access Insulin Human Lispro 0 unit 02/28/25 17:00 03/08/25 16:46 Insulin Lispro (Admelog) 1 Unit/0.01 Ml Unit SC 03/30/25 16:59 1 unit ACHS ÁNGEL Administration Protocol Levothyroxine Sodium 125 mcg/ 175 mcg 02/27/25 06:00 03/08/25 06:37 Levothyroxine Sodium 50 mcg PO 03/29/25 05:59 175 mcg ACBR ÁNGEL Administration Losartan Potassium 25 mg 02/26/25 09:00 03/08/25 08:21 Losartan Potassium 25 Mg Tablet PO 03/28/25 08:59 25 mg QDAY ÁNGEL Administration Ondansetron HCl 4 mg 02/26/25 01:25 02/26/25 01:54 Ondansetron Inj 2 Mg/Ml Inj 2 Ml IVP 03/28/25 01:24 4 mg Q6H PRN Administration NAUSEA OR VOMITING Protocol Potassium Chloride 20 meq 03/06/25 17:30 03/08/25 16:46 Potassium Chloride 20 Meq Tabcr PO 04/05/25 17:29 20 meq BIDWM ÁNGEL Administration Plan 54-year-old female with past medical history of morbid obesity, hyperlipidemia, hypertension, T2DM, cholecystectomy, DE, hypothyroidism, MRSA + periorbital cellulitis, anemia who presented to the ED on 02/25 with epigastric and left upper and lower quadrant abdominal pain x 3 days. Admitted for acute hypercapneic respiratory failure, diverticulitis. #Acute hypoxic hypercapnic respiratory failure (resolving) #Obesity Hypoventilation Syndrome (OHS) #Obstructive Sleep Apnea (MELISSA) Respiratory failure likely secondary to obesity hypoventilation syndrome due to MELISSA The patient's mentation has significantly improved since admission, likely in response to the initiation of BiPAP therapy. There is a marked improvement in hypercapnia as well. Most recent ABG shows pH 7.46, pCO2 49, pO2 120 Patient was trialed off BiPAP however oxygenation dropped to the 70s so BiPAP was back on nights/sleep time, and HF NC at other times. VBG pH 7.42, pCO2 54, pO2 49 WNL Plan: - Weaned off of HFNC - BiPAP/CPAP when sleeping - encourage incentive spirometry - DuoNeb RT Q2h PRN - Ambulate 3 times daily, physical therapy and mobilization. - Avoid sedating medications. - Pulm consulted, Dr. Wolff, appreciate recs - Patient will need home BiPAP/CPAP upon discharge. - Outpatient sleep study. - Up to chair 3 times daily as tolerated - Possible discharge to SNF for further rehabilitation #Hematuria On 03/07, patient noted to have deep purple discoloration to her urine collected inside suction bucket. Likely due to traumatic U catheter removal. UA showed RBC 2318 and positive leukocyte esterase. -Held aspirin and Lovenox #Diverticulosis #Sigmoid diverticulitis, resolved Patient is afebrile. Lactic acid improved from 1.3 to 0.7, and lipase is within normal limits. CT A/P without contrast showed colonic diverticulosis with abnormal small bowel loops, wall thickening, and inflammatory changes, suggesting acute diverticulitis of the sigmoid colon. CT A/P also revealed hepatocellular disease with irregular liver contour, a 19 mm uterine fundal mass, and mild nodular thickening of the adrenal glands. CTA A/P confirmed diverticulosis of the colon, thickening of the cecum and ascending colon, and inflammatory changes. No evidence of bowel obstruction, free fluid, free air, or abscess. Right adrenal nodule 2.2 cm noted. Given ceftriaxone 1 g IV, morphine 4 mg IV, Zofran 4 mg IV, 500 mL NS, metronidazole 500 mg IV. ? Blood ctx were negative at 48h point in 06/02 bottles. ? Pt completed 5 day course of Zosyn 3.375g TID 03/02/2025 - Ciprofloxacin IV 400 mg twice daily (03/03 -03/04) -complete - Flagyl IV 500 mg 3 times daily (03/03 -03/04) -complete - Bowel rest and pain management. #Pericardial effusion, chronic #c/f pericarditis Pt denies chest pain, afebrile, hypertensive Seen on CTA a/p. No aortic dissection seen on CTA prelim read DDX: post-DE, hypothyroidism, viral, malignancy, inflammatory/autoimmune Echo done 02/26 showed pericardium appears normal. There is small to moderate circumferential pericardial effusion. No evidence of cardiac tamponade. Fribrogenous exudate on LV and RV velez indicating chronic effusion. Viral panel with influenza A, B, and COVID came back negative. Plan: - Cardiology consulted, Dr. Page - No need for pericardiocentesis at this time as there is no concern for tamponade - Consider NSAID therapy if patient develops chest pain #Hypertension, chronic #Hypertensive urgency - resolved 188/105 (HR 88) --> 134/93, HR 69 Plan: - Amlodipine 10 mg daily (listed as home med) - Losartan 25 mg daily (home dose 50mg daily) - Resumed carvedilol PO 3.125mg bid #T2DM A1c 6.8 Plan: - Target blood sugar of 140-180 while hospitalized. - SSI #Nodular Thickening of Rt adrenal gland findings of CT imaging 02/26/2025 - Recommend outpatient follow-up with evaluation of labs for metanephrines, free cortisol, renin/aldosterone levels - elective MRI outpatient for further workup and management. #Hypothyroidism Patient has severely uncontrolled hypothyroidism likely secondary to medication noncompliance. TSH 59.14, T4 0.17 Plan: - Levothyroxine 175 mcg daily - Recommend outpatient endocrine follow-up #Hyperlipidemia #Hx of DE - atorvastatin 40 mg daily (listed as home med) - Held aspirin 81 mg ISO hematuria Health Maintenance: Dispo: Admit to tele for w/u acute hypercapneic respiratory failure, diverticulitis. PT recommended homeheatlh PT upon dc to home for home safety (decrease risk of fall, increase MM strength, and improve mobility). Monitoring recent development of hematuria. Diet: Special diet VTE ppx: SCD Pain mgmt: Tylenol, morphine 2 mg IV q6h PRN Code status: Full This case was discussed with my attending physician, Dr. Mathew, and senior resident, Dr Muse. Nilsa Hercules DO PGY I Attending Provider Attestation/Addendum I have discussed and was present for the essential components of the history, physical examination, diagnosis, and treatment plan with the resident. I agree with the patient's care as documented by the resident and amended herein by me. Merritt Mathew DO. Although this document has been carefully reviewed, there may still be some phonetic and other typographical errors. These errors are purely grammatical due to imperfections in the software program and should not be construed in any way to compromise the substance of the patient's medical care during this visit. Patient seen and evaluated this AM. No acute events overnight, urine definitely looks much better than yesterday although still dark, patient cleared for discharge today however there was a miscommunication somehow on the end of the SNF in regards to BiPAP orders, plan discharge tomorrow 03/09
[2025-03-08] MEDS: ATORVASTATIN CALCIUM 20 MG TABLET 40 MG PO (21:29)
[2025-03-09] VITALS (9 sets, daily range): BP systolic 129–136; BP diastolic 71–78; PULSE 61–85; RESP 14–25; TEMP 36.1–36.4; O2SAT 94–97; BMI 60.8
[2025-03-09 05:14] LABS: Basophils # (Auto) 0.1 Thou/mm3 (0.0-0.2); Basophils % (Auto) 0 % (0-2.5); Eosinophils # (Auto) 0.4 Thou/mm3 (0.0-0.5); Eosinophils % (Auto) 3 % (0-10); Hematocrit 32.5 % (36.0-46.0); Hemoglobin 10.7 g/dL (12.0-16.0); Immature Granulocytes Auto 0.09 Thou/mm3 (0.00-0.00); Lymphocytes # (Auto) 2.6 Thou/mm3 (1.0-4.8); Lymphocytes % (Auto) 19 % (10-50); Mean Corpuscular HGB Conc 32.9 g/dl (31.0-37.0); Mean Corpuscular Hemoglobin 33.2 pg (25.0-35.0); Mean Corpuscular Volume 101 fL (80-100); Monocytes # (Auto) 0.6 Thou/mm3 (0.0-0.8); Monocytes % (Auto) 5 % (0-12); Neutrophils # (Auto) 10.0 Thou/mm3 (1.8-7.7); Neutrophils % (Auto) 72 % (37-80); Nucleated Red Blood Cell # 0.00 Thou/mm3 (0.00-0.00); Nucleated Red Blood Cell % 0 /100 WBC (0); Platelet Count 250 Thou/mm3 (140-440); RDW Standard Deviation 51.0 fL (36.4-46.3); Red Blood Count 3.22 Miln/mm3 (4.00-5.20); White Blood Count 13.8 Thou/mm3 (3.6-11.0)
[2025-03-09 05:52] LABS: Alanine Aminotransferase 10 U/L (10-49); Albumin, Serum 4.1 gm/dL (3.5-5.0); Albumin/Globulin Ratio 1.8 (1.2-2.2); Alkaline Phosphatase 50 U/L (46-116); Anion Gap 6 (7-16); Aspartate Amino Transferase 21 U/L (0-34); BUN/Creatinine Ratio 15 Ratio (12-20); Bilirubin,Total 0.6 mg/dL (0.3-1.2); Blood Urea Nitrogen 12 mg/dL (9-23); Calcium 9.4 mg/dL (8.3-10.6); Calcium (Corrected) 9.4 mg/dL (8.5-10.1); Carbon Dioxide 34.9 mMol/L (20.0-31.0); Chloride 100 mMol/L (98-107); Creatinine (Component) 0.8 mg/dL (0.6-1.3); Estimated Creatinine Clearance 111.9 mL/min (>60); Globulin 2.3 gm/dL (2.3-3.5); Glucose 119 mg/dL (74-106); Osmolality,Calculated 281 (275-295); Potassium 4.3 mMol/L (3.4-5.1); Sodium 141 mMol/L (136-145); Total Protein 6.4 gm/dL (5.7-8.2); eGFR > 60 See Note
[2025-03-09] MEDS: LEVOTHYROXINE SODIUM 125 MCG, LEVOTHYROXINE SODIUM 50 MCG 175 MCG PO (06:39)
[2025-03-09] MEDS: LOSARTAN POTASSIUM 25 MG TABLET PO (08:22)
--- NOTE | 2025-03-09 10:20 | PC.SS ---
Addendum entered by Ada Rodriguez 03/09/25 15:50: Per Yaneli MEDINA [phone], ETA for transportation 1700, Covering RN Hannah informed. Susy and patient's daughter Sally informed. [facility] informed of ETA and DC Summary submitted to her via fax [phone] and via [employer] as well. Addendum entered by Ada Rodriguez 03/09/25 13:22: ETA for transportation still pending, [place] stated they have not received auth. from [facility] to transport patient. Covering RN informed. Original Note: Dr. Clark stated patient can discharge today. Confirmed with [facility] patient can be received today. Contacted MARK Da Silva to confirm if patient is still ready for discharge. SS then contacted [facility] [phone] to initiate auth. for transportation, reservation #[phone] given. BRYANAD was provided with [employer] Form and reservation number. [place] placed transportation on will call until [facility] provides authorization to [facility]. 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
--- NOTE | 2025-03-09 12:41 | ESDS_ITS ---
Planned Discharge Date 03/09/25 DS: Providers Provider Date of admission: 02/26/25 05:21 Primary care physician: Physician No Primary/Family Admitting Provider: Humberto Coombs MD Attending Provider on Admission: Connor Mathew DO Consults: 02/26/25 11:44 Consult to Cardiology Stat Comment: Consulting Provider: Monie Jiménez 02/26/25 14:35 Referral Registered Dietitian Routine Comment: Health Equity Referral - Knowledge Deficit Routine Comment: Positive screening for knowledge deficit needs. Health Equity Referral - Nutrition Routine Comment: Positive screening for nutrition needs. 02/27/25 13:37 Consult to Pulmonology Stat Comment: On BiPap, difficulty weaning off Consulting Provider: Tadeo Guerin 02/28/25 08:09 Referral Physical Therapy Routine Comment: Physician Instructions: 03/01/25 12:28 Consult to Pulmonology Routine Comment: MELISSA/OHS, Hypoxia Consulting Provider: Mayank Chatman I Attending Provider on DC: Connor Mathew DO Discharging Provider: Connor Mathew DO Anticipated date of discharge: 03/09/25 DS: Diagnosis Problem List Completed Was Problem List Reviewed/Reconciled?: Yes Hospital Course Hospital Course Hospital course: Hospital Course: Ms. Mcdowell is a 54-year-old female with past medical history of morbid obesity, BMI greater than 60, hyperlipidemia, hypertension, type 2 diabetes mellitus, cholecystectomy, myocardial infarction, hypothyroidism, MRSA positive periorbital cellulitis, anemia and diverticulosis who presented to [facility] emergency department with a chief complaint of epigastric pain left upper and lower quadrant abdominal pain. CT abdomen pelvis showed colonic diverticulosis with abnormal small bowel loops wall thickening and inflammatory changes suggestive of acute diverticulitis. Patient was started on IV antibiotics, during the hospitalization patient was noted to have CO2 retention on blood gas analysis and patient had mild change in mentation, patient was started on BiPAP while asleep, initial BiPAP settings were IPAP 22, EPAP 10 FiO2 0.30 and respiratory rate 24 to which patient responded well and was eventually weaned off of high flow nasal cannula during the day. Patient's underlying etiology of hypoxia and hypercapnia secondary to likely obesity hypoventilation syndrome and/or compressive atelectasis due to super superobesity and immobility. Patient did respond to mobilization and incentive spirometer. For patient's pericardial effusion cardiology was consulted, cardiology deferred pericardiocentesis as there was no concern of cardiac tamponade, during hospitalization patient's TSH was 59.4, T4 was 0.17, patient has poor outpatient compliance with levothyroxine and was started on levothyroxine 175 mcg/day, there was also incidental finding of nodular thickening of right adrenal gland for which patient will require outpatient follow-up. Pulmonology was also consulted during the hospitalization for assistance with BiPAP management, patient's BiPAP settings were down titrated to IPAP 18, EPAP 9, FiO2 0.30 and respiratory rate 24. Patient was stable for discharge however patient had some trauma to the Durand catheter and hence was observed overnight for hematuria which has been resolving. Further plan is to discharge patient to [facility] for [facility] therapy, discharge recommendations as below. Patient is stable for discharge, responded well to hospital treatment. Care Plan Goals: You have been started on the following medications: - Synthroid 175 mcg once daily - Aspirin 81 mg once daily (DO NOT start until 7 days after discharge) Please continue all other medications as previously prescribed. Please follow up with your primary care doctor in 7-10 days. Please seek referral to supervisor plastics for evaluation of nodular thickening right adrenal gland. Follow up with a cartographic aide outpatient as well for cardiac risk stratification. Obtain Sleep study outpatient. Please return to ED if you develop new or worsening symptoms. You are to be sent on BiPAP with the following settings: BiAP: 24 breath/min, IPAP 18, EPAP 9, FiO2 30%. To be used at night or when asleep. Discharge Diagnosis: #Acute hypoxic hypercapnic respiratory failure, resolved #Obesity hypoventilation syndrome #Obstructive sleep apnea #Traumatic hematuria, resolving #Sigmoid diverticulitis, resolved #Pericardial effusion, chronic #Hypertension #hypertensive urgency, resolved #Type 2 diabetes mellitus, A1c 6.8 #Nodular thickening of right adrenal gland #Uncontrolled hypothyroidism #Hyperlipidemia #Myocardial infarction, by history #Macrocytic anemia Case discussed with Attending Physician Dr. Connor Mathew, DO Bright Clark MD Internal Medicine PGY-2 Disclaimer: This note was dictated by speech recognition. Minor errors in curing press maintainer may be present due to voice recognition software. Time Spent with Patient Time attestation: Total time spent providing and/or coordinating discharge services: Time spent: Greater than 30 minutes Exam Vital Signs Temp Pulse Resp BP Pulse Ox O2 Del Method O2 Flow Rate 97.0 F 74 19 130/74 94 L Nasal Cannula 2 03/09/25 12:00 03/09/25 12:00 03/09/25 12:00 03/09/25 12:00 03/09/25 12:00 03/09/25 12:00 03/09/25 12:00 FiO2 30 03/09/25 12:00 Narrative Exam General: No acute distress, morbidly obese Eye: PERRL, EOMI HENT: Normocephalic, atraumatic, normal hearing, moist oral mucosa, hoarse voice (chronic). 3 to 5 mm in diameter circular isolated papules on the inside of the lower lip. Neck: Supple, non-tender, no JVD, no lymphadenopathy Lungs: Clear to auscultation bilaterally but difficult to hear breath sounds, non-labored respirations, symmetric chest rise, no use of accessory muscles Heart: Normal S1 and S2, no S3 or S4 appreciated. Normal rate and regular rhythm, no murmurs, rubs gallops. 1+ b/l edema. NSR. Abdomen: Soft, nondistended. Mild TTP of LLQ Musculoskeletal: Normal range of motion and strength, no tenderness or swelling Skin: Skin is warm, dry, no rashes or lesions. Venous stasis dermatitis b/l LE Neurologic: Alert, awake and oriented x3. CN II-XII grossly intact. Able to follow commands. No focal neuro deficits. No signs of meningeal irritation noted. Psychiatric: Cooperative, appropriate mood and affect Discharge Plan Plan Patient Disposition: Xfer Skilled [facility] (SNF) Patient condition on transfer: Stable Care Plan Goals: You have been started on the following medications: - Synthroid 175 mcg once daily - Aspirin 81 mg once daily (DO NOT start until 7 days after discharge) Please continue all other medications as previously prescribed. Please follow up with your primary care doctor in 7-10 days. Please seek referral to supervisor plastics for evaluation of nodular thickening right adrenal gland. Follow up with a cartographic aide outpatient as well for cardiac risk stratification. Obtain Sleep study outpatient. Please return to ED if you develop new or worsening symptoms. You are to be sent on BiPAP with the following settings: BiAP: 24 breath/min, IPAP 18, EPAP 9, FiO2 30%. To be used at night or when asleep. Prescriptions/Referrals Prescriptions/Med Rec: New levothyroxine 175 mcg Tablet 175 mcg PO ACBR 30 Days Qty: 30 2RF aspirin 81 mg Tablet,Delayed Release (Dr/Ec) 81 mg PO QDAY 30 Days Qty: 30 2RF Continued carvedilol 3.125 mg Tablet 3.125 mg PO BID Qty: 60 0RF acetaminophen [Mapap (acetaminophen)] 325 mg Tablet 650 mg PO Q6H PRN (Reason: Fever >101.5) Qty: 20 0RF metformin 500 mg Tablet 500 mg PO BID ferrous sulfate 325 mg (65 mg iron) tablet 325 mg PO .3 times per week Patient Comments: TAKE 1 TABLET BY MOUTH 3 TIMES A WEEK furosemide 20 mg tablet 20 mg PO QDAY Patient Comments: TAKE 1 TABLET BY MOUTH EVERY DAY FOR 90 DAYS cholecalciferol (vitamin D3) 125 mcg (5,000 unit) tablet 5,000 unit PO .weekly ezetimibe 10 mg tablet 10 mg PO QDAY Patient Comments: TAKE 1 TABLET BY MOUTH EVERY DAY FOR 90 DAYS losartan 50 mg tablet 50 mg PO QDAY Patient Comments: TAKE 1 TABLET BY MOUTH EVERY DAY rosuvastatin 40 mg tablet 40 mg PO DAILY Patient Comments: TAKE 1 TABLET BY MOUTH EVERY DAY FOR 90 DAYS amlodipine 10 mg tablet 10 mg PO DAILY Patient Comments: TAKE 1 TABLET BY MOUTH EVERY DAY FOR 90 DAYS Referrals: No Primary/Family,Physician [Primary Care Provider] Patient/Caregiver Discharge Instructions Discharge Activity: activity as tolerated Education Materials: What Is a BPAP?, Using a BPAP Print Language: Sammarinese Stand Alone Forms: [facility] Award Info., Patient Portal Info Letter Discharge Order Discharge Orders: Discharge (Routine); Ordered 03/09/25 Ordered By: Bright Clark Quality Discharge Quality Measures VTE prophylaxis Attestestation Attestation I have discussed and was present for the essential components of the discharge history, physical examination, diagnosis, and discharge treatment plan with the resident. I agree with the patient's discharge care as documented by the resident and amended herein by me. Merritt Mathew DO. The patient understood all discharge instructions, all questions were answered satisfactorily. The patient was instructed to return to the Emergency Department is symptoms worsened or persisted. Patient stable for discharge to SNF, urine has cleared, patient was afebrile, tolerating p.o. intake at time of discharge to SNF. See resident note above for additional details in regards to hospital stay. Although this document has been carefully reviewed, there may still be some phonetic and other typographical errors. These errors are purely grammatical due to imperfections in the software program and should not be construed in any way to compromise the substance of the patient's medical care during this visit.
== END 2025-03-09 17:08 | disposition skilled nursing facility (03) | DRG 244 ==
LOC: SERX 23:36 → SERHOLD 02-26 05:36 → S2NX 02-26 13:43 → S3SX 03-05 03:37
PROVIDERS: Nurse Practitioner Family; Student in an Organized Health Care Education/Training Program; Admitting Provider Student in an Organized Health Care Education/Training Program; Emergency Provider Emergency Medicine; Visit Provider Student in an Organized Health Care Education/Training Program
DX: K57.32 Diverticulitis of large intestine without perforation or abscess without bleeding (principal); J96.02 Acute respiratory failure with hypercapnia; E66.01 Morbid (severe) obesity due to excess calories; Z68.44 Body mass index [BMI] 60.0-69.9, adult; E78.5 Hyperlipidemia, unspecified; I10 Essential (primary) hypertension; E11.9 Type 2 diabetes mellitus without complications; E03.9 Hypothyroidism, unspecified; I25.2 Old myocardial infarction; Z91.148 Patient's other noncompliance with medication regimen for other reason; Z74.09 Other reduced mobility; G93.40 Encephalopathy, unspecified; E87.29 Other acidosis; I31.39 Other pericardial effusion (noninflammatory); G47.33 Obstructive sleep apnea (adult) (pediatric); R31.9 Hematuria, unspecified; R82.81 Pyuria; R82.2 Biliuria; I16.0 Hypertensive urgency; Z79.899 Other long term (current) drug therapy; Z79.82 Long term (current) use of aspirin; Z79.84 Long term (current) use of oral hypoglycemic drugs; E27.8 Other specified disorders of adrenal gland; L03.213 Periorbital cellulitis; E66.2 Morbid (severe) obesity with alveolar hypoventilation; D53.9 Nutritional anemia, unspecified; Z79.890 Hormone replacement therapy; Z90.49 Acquired absence of other specified parts of digestive tract
CPT/HCPCS: 36415; 36600; 51702; 71045; 74174; 74176; 80048; 80053; 80061; 81001; 81025; 82803; 83036; 83605; 83690; 83735; 84100; 84145; 84439; 84443; 84484; 85025; 85610; 85730; 87040; 87086; 87502; 87811; 93005; 93225; 93306; 94660; 94664; 96361; 96365; 96366; 96372; 96375; 96376; 97162; 99284; A4314; A4649; A9270; J0360; J0696; J0744; J1644; J1650; J1815; J2250; J2270; J2405; J2543; J3475; J3480; J3490; J7030; J7120; J7999; Q9967; J1836